=== PATIENT | female | born 1970 | race Caucasian/White ===

== ENCOUNTER → 2020-04-25 11:20 | Outpatient (CLI) | payer OTHER, SELFPAY | PROVIDERS: PCP Family Medicine; Referring Provider Family Medicine; Visit Provider Family Medicine | DX: Z20.828 Contact with and (suspected) exposure to other viral communicable diseases (principal) | CPT/HCPCS: 87635; G2023; U0003 ==

== ENCOUNTER → 2024-07-27 | Outpatient (CLI) | payer OTHER, SELFPAY ==
--- NOTE | 2024-07-27 08:19 | EKG12_ITS ---
Test Reason : PREOP Blood Pressure : / mmHG Vent. Rate : 070 BPM Atrial Rate : 070 BPM P-R Int : 138 ms QRS Dur : 094 ms QT Int : 380 ms P-R-T Axes : 071 -11 014 degrees QTc Int : 410 ms Normal sinus rhythm Incomplete right bundle branch block Borderline ECG Confirmed by Dexter Landaverde ([id number]), story editor NOAM MALCOLM ([id number]) on 07/27/2024 11:23:17 AM Referred By: Marcelo Harrison Confirmed By:Dexter Landaverde
[2024-07-27 09:24] LABS: Absolute Lymphocyte Count 1.61 X10^3/uL (0.83-4.51); Absolute Neutrophil Count 3.1 X10^3/uL (2.0-7.7); Basophil# 0.06 X10^3/uL; Basophil% 1.1 % (0-1); Eosinophil# 0.12 X10^3/uL; Eosinophils% 2.2 % (0-5); Hematocrit 41.9 % (37-47); Hemoglobin 13.6 g/dL (12.0-15.0); Lymphocyte # 1.61 X10^3/ul (0.83-4.51); Lymphocyte % 30.1 % (19-41); Mean Corp Hgb Conc 32.5 g/dL (32-36); Mean Corpuscular Hgb 29.5 pg (27.0-32.0); Mean Corpuscular Volume 90.9 fL (81-99); Mean Platelet Vol. 11.2 fl (6.2-12.0); Monocyte# 0.43 X10^3/uL; Monocyte% 8.1 % (0-10); NRBC Flagged by Analyzer 0 % (0-5); Neutrophil % 58.1 % (47-70); Platelet Count 232 K/mm3 (150-450); RBC Distribution Width CV 12.9 % (11.6-14.6); RBC Distribution Width SD 42.5 fl (35.1-43.9); Red Blood Count 4.61 M/mm3 (4.2-5.4); White Blood Count 5.3 K/mm3 (4.4-11.0)
[2024-07-27 09:56] LABS: Anion Gap 3 (5-15); BUN 7 mg/dL (7-18); BUN/Creat Ratio 8.5 RATIO (10-20); Calcium,Total 9.2 mg/dL (8.5-10.1); Chloride 112 mmol/L (98-107); Creatinine, Serum 0.82 mg/dL (0.55-1.02); EST Glomerular Filtration Rate 78 mL/min (>60); Est Glom Filt Rate - Afr Amer 94 mL/min (>60); Glucose 83 mg/dL (74-106); Potassium 4.3 mmol/L (3.5-5.1); Sodium Level 143 mmol/L (136-145)
== END | disposition home or self-care (01) ==
LOC: PSN 08:19
PROVIDERS: PCP Student in an Organized Health Care Education/Training Program; Referring Provider Student in an Organized Health Care Education/Training Program; Visit Provider Student in an Organized Health Care Education/Training Program
DX: Z01.818 Encounter for other preprocedural examination (principal)
CPT/HCPCS: 36415; 80048; 85025; 93005

== ENCOUNTER 2024-10-20 13:04 | Emergency (ER) | payer OTHER, SELFPAY ==
[2024-10-20 13:04] VITALS: BP 134/92; PULSE 89; RESP 16; TEMP 36.2; O2SAT 96; BMI 26.8
--- NOTE | 2024-10-20 13:13 | ED.VIS.CHEST ---
HPI History of Present Illness Chief Complaint: Chest Pain PFSH PFS Medical History no medical history Allergy/AdvReac Type Severity Reaction Status Date / Time bupropion (From Wellbutrin Allergy Intermediate Swelling Verified 10/20/24 13:07 SR) Family History no significant family his Surgical History no surgical history Social History Smoking Status: Never smoker EXAM Physical Exam Const Vital Signs: 10/20/24 13:04 10/20/24 13:19 10/20/24 14:04 Temperature 97.1 F L Temperature Source Oral Pulse Rate 89 82 Respiratory Rate 16 16 Blood Pressure 134/92 H 130/88 H Blood Pressure Mean 106 102 Pulse Ox 96 100 93 Oxygen Delivery Method Room Air Room Air Room Air 10/20/24 15:00 10/20/24 16:00 Temperature Temperature Source Pulse Rate 89 87 Respiratory Rate 16 Blood Pressure 128/99 H 125/89 H Blood Pressure Mean 108 101 Pulse Ox 98 98 Oxygen Delivery Method MDM MDM MDM Narrative Medical decision making narrative: HISTORY OF PRESENT ILLNESS: 54-year-old female presents with chest pain rating to her jaw. She states this began this morning and is since resolved. She attributes this to indigestion. Chest pain-free at this time. No cough fever chills. No shortness of breath. No lower extremity edema. No focal numbness weakness or loss sensation. Patient denies sudden onset of pain, no tearing sensation, no migratory symptoms, no new numbness, weakness or loss of sensation. Patient denies family history or personal history of Connective tissue disorders (Marfan's Syndrome, Gin Danlos etc) The patient denies recent surgery in the last 4 weeks or immobilization in the last 3 days, denies previous diagnosis of DVT or PE, hemoptysis, unilateral leg swelling or malignancy with treatment the last 6 months or palliative. No estrogen use noted. REVIEW OF SYSTEMS: Pertinent positives: Chest pain Pertinent negatives: SOB PHYSICAL EXAM: Nursing triage notes reviewed, Vital signs reviewed Constitutional: please see mdm HENT: MMM Eyes: Pupils equal round and reactive to light, Extraocular muscles intact Neck: No stridor, no JVD, full neck ROM Lungs: Clear to auscultation, No wheezing or rales. No increased work of breathing, no conversational dyspnea, no accessory muscle use, no nasal flaring. No respiratory distress noted Heart: Regular rate and rhythm, No murmurs, No rubs and No gallops, 2+ distal pulses (radial, femoral, posterior tibial) in all extremities Abdomen: Soft, there is no tenderness, rigidity, rebound or guarding, no obvious peritoneal signs, no palpable pulsatile abdominal masses, no auscultated abdominal bruit : No CVAT Extremities: No edema Neuro: No new focal neurological deficits, cranial nerves II through XII intact, 5/5 strength in all present extremities. Intact sensation to light touch in all present extremities, 2+ reflexes bilateral patella tendons. Skin: No rash or lesions noted MEDICAL DECISION MAKING: Chief Complaint: Chest pain External records reviewed: Reviewed prior cardiovascular testing Factors affecting care: none reported Social determinants of health: denies illicit drug use History obtained from others: none Consults: none MDM Narrative: Patient was initially hemodynamically stable, afebrile and nontoxic-appearing. Exam without focal cardiopulmonary normalities I considered the following differential diagnosis: ACS, arrhythmia, anemia, electrolyte disturbance, pneumothorax, pneumonia, PE, aortic dissection ALL IMAGES (IF OBTAINED) HAVE BEEN PERSONALLY REVIEWED AND INTERPRETED BY MYSELF. EKG with normal sinus rhythm, left axis deviation, normal intervals, QTc 429, no signs of arrhythmia, STEMI High-sensitivity troponin is negative, no evidence of myocardial ischemiax2 CBC without leukocytosis, severe anemia, no thrombocytopenia. BMP without evidence of significant electrolyte abnormalities, no anion gap, no acute kidney injury. On reevaluation the patient remained chest pain-free. The synthesis of the patient's history, physical exam, labs images suggest no acute life-limiting etiology specifically no signs of ACS. The patient's history and physical exam not consistent with dissection or PE. Her labs do not suggest anemia or electrolyte abnormalities. The cause of her presentation is unclear however it is unlikely be life-threatening. Will recommend outpatient stress test. Strict return precautions were discussed. The patient and/or family, caregivers express understanding. The patient and/or family, caregivers agrees with the plan. Shared decision making: I will have a discussion with the patient and or visitors regarding risk/benefits of further testing or admission. They will be made aware of of the risk/benefits inherent in this decision they will be given the opportunity to voice understanding. Total critical care time today provided was at least 0 minutes. This excludes separately billable procedures. Critical care time (if documented) is secondary to the patient having high probability of clinically significant/life threatening deterioration in the patient's condition which required my urgent intervention. Impression: 1. Chest pain Dispo: dc home This note was generated with [employer] dictation software. It may contain incorrect words, spelling, and punctuation that were not noted in review of the chart prior to signing. Lab Data Labs: Laboratory Results - last 24 hr 10/20/24 10/20/24 13:16 15:28 WBC 7.0 RBC 4.64 Hgb 14.0 Hct 41.5 MCV 89.4 MCH 30.2 MCHC 33.7 RDW Std Deviation 41.7 RDW Coeff of Aruna 12.9 Plt Count 257 MPV 10.5 Immature Gran % (Auto) 0.300 Neut % (Auto) 50.9 Lymph % (Auto) 37.2 Mayes % (Auto) 7.7 Eos % (Auto) 3.2 Baso % (Auto) 0.7 Absolute Neuts (auto) 3.6 Absolute Lymphs (auto) 2.59 Nucleated RBC % 0 Sodium 142 Potassium 3.7 Chloride 106 Carbon Dioxide 32.0 Anion Gap 3 L BUN 11 Creatinine 0.81 Estim Creat Clear Calc 83.33 Est GFR (MDRD) Af Amer 95 Est GFR (MDRD) Non-Af 78 BUN/Creatinine Ratio 13.6 Glucose 105 Calcium 9.2 Troponin I High Sens 5 8 Radiography Diagnostic Testing: Clinical Impression(s) from Imaging Studies Chest X-Ray 10/20/24 13:15 IMPRESSION: No radiographic evidence of acute cardiopulmonary disease. Electronically Signed: Kyle Romano MD at 14:00 EST , Discharge Plan Triage Chief Complaint: Chest Pain ED Provider: Roberto Sinha Dx/Rx/DC Orders Instructions: Chest Pain [facility] Primary Care Provider: Td Vick Referrals: Td Vick DO [Primary Care Provider] - Activity Restrictions/Additional Instructions: Thank you for trusting us with your care today! Please take Tylenol (2 pills, 650 mg), ibuprofen (2 pills, 400 mg) every 6 hours as needed for pain and fever control. Please return to the emergency department if your symptoms change or worsen. Please follow with your primary care physician for further outpatient evaluation and management. Print Language: Tongan Disposition Disposition: Home, Self Care
--- NOTE | 2024-10-20 13:14 | EKG12_ITS ---
Test Reason : CP Blood Pressure : */* mmHG Vent. Rate : 82 BPM Atrial Rate : 82 BPM P-R Int : 158 ms QRS Dur : 94 ms QT Int : 368 ms P-R-T Axes : 73 -12 36 degrees QTcB Int : 429 ms Normal sinus rhythm Incomplete right bundle branch block Borderline ECG Confirmed by ASHLEY PETER, KAL ([id number]), market editor GALEN ROSE ([id number]) on 10/22/2024 1:57:56 PM Referred By: Roberto Sinha Confirmed By: KAL RAMIREZ MD
--- NOTE | 2024-10-20 13:15 | RAD_ITS ---
INDICATION: chest pain EXAMINATION/TECHNIQUE: X-RAY - XR Chest 1 View COMPARISON: No relevant prior comparison study available FINDINGS: LINES/DEVICES: None. LUNGS: No consolidation, edema or effusion. No pneumothorax. MEDIASTINUM AND CARDIOVASCULAR STRUCTURES: Cardiac silhouette not enlarged. Central airways and mediastinal contour are unremarkable. BONES AND SOFT TISSUES: Unremarkable. RAD/Chest 1 View (Portable) IMPRESSION: No radiographic evidence of acute cardiopulmonary disease. Electronically Signed: Kyle Romano MD at 14:00 EST ,
[2024-10-20 13:19] VITALS: O2SAT 100
[2024-10-20 13:26] LABS: Absolute Lymphocyte Count 2.59 X10^3/uL (0.83-4.51); Absolute Neutrophil Count 3.6 X10^3/uL (2.0-7.7); Basophil# 0.05 X10^3/uL; Basophil% 0.7 % (0-1); Eosinophil# 0.22 X10^3/uL; Eosinophils% 3.2 % (0-5); Hematocrit 41.5 % (37-47); Lymphocyte # 2.59 X10^3/ul (0.83-4.51); Lymphocyte % 37.2 % (19-41); Mean Corp Hgb Conc 33.7 g/dL (32-36); Mean Corpuscular Hgb 30.2 pg (27.0-32.0); Mean Corpuscular Volume 89.4 fL (81-99); Mean Platelet Vol. 10.5 fl (6.2-12.0); Monocyte# 0.54 X10^3/uL; Monocyte% 7.7 % (0-10); NRBC Flagged by Analyzer 0 % (0-5); Neutrophil # 3.55 X10^3/uL (2.7-7.7); Neutrophil % 50.9 % (47-70); Platelet Count 257 K/mm3 (150-450); RBC Distribution Width CV 12.9 % (11.6-14.6); RBC Distribution Width SD 41.7 fl (35.1-43.9); Red Blood Count 4.64 M/mm3 (4.2-5.4)
[2024-10-20 13:40] LABS: Anion Gap 3 (5-15); BUN 11 mg/dL (7-18); BUN/Creat Ratio 13.6 RATIO (10-20); Calcium,Total 9.2 mg/dL (8.5-10.1); Chloride 106 mmol/L (98-107); Creatinine, Serum 0.81 mg/dL (0.55-1.02); EST Glomerular Filtration Rate 78 mL/min (>60); Est Glom Filt Rate - Afr Amer 95 mL/min (>60); Estimated Creatinine Clearance 83.33 ml/min; Glucose 105 mg/dL (74-106); Potassium 3.7 mmol/L (3.5-5.1); Sodium Level 142 mmol/L (136-145); Troponin-I HS (w/2H Reflex) 5 pg/mL (3.0-54.0)
[2024-10-20 14:04] VITALS: BP 130/88; PULSE 82; RESP 16; O2SAT 93
[2024-10-20 15:00] VITALS: BP 128/99; PULSE 89; RESP 16; O2SAT 98
[2024-10-20 15:20] LABS: Reflex Troponin-HS? (from REC) Y
[2024-10-20 16:00] VITALS: BP 125/89; PULSE 87; O2SAT 98
[2024-10-20 16:03] LABS: Troponin-I HS 8 pg/mL (3.0-54.0)
[2024-10-20 16:25] VITALS: BP 125/89; PULSE 87; RESP 16; TEMP 36.6; O2SAT 98
== END 2024-10-20 16:49 | disposition home or self-care (01) ==
PROVIDERS: Emergency Provider Emergency Medicine; PCP Student in an Organized Health Care Education/Training Program; Referring Provider Emergency Medicine; Visit Provider Emergency Medicine
DX: R07.9 Chest pain, unspecified (principal)
CPT/HCPCS: 71045; 80048; 84484; 85025; 93005; 99284; A4216

== ENCOUNTER → 2025-06-19 | Outpatient (CLI) | payer OTHER, SELFPAY ==
--- OUTSIDE RECORDS SUMMARY | 2025-06-19 07:06 | XMS RPT_ITS | CCD ---
Author Organization [facility] Care Team Providers Care Steel Detailer Name Role Phone Td Vick DO L Primary Care Provider Td Vick DO Primary Care Provider Leblanc STUNNER ANIMAL.VIDEO GAME ENGINEER, Ny Bahena Unavailable Keri STUNNER ANIMAL.VIDEO GAME ENGINEERMilton Unavailable Melva STUNNER ANIMAL.VIDEO GAME ENGINEER, Ryanne Silva Unavailable Vick, Td Primary Care Unavailable Janiettle, Marcelo Referring Unavailable Mel Harrisons Attending Unavailable Vick, Td Primary Care Unavailable Roberto Sinha Referring Unavailable BharathRoberto Attending Unavailable Vick, Td Attending Unavailable Vick, Td Primary Care Unavailable Vick, Td Referring Unavailable Vick, Td Primary Care Unavailable Dexter Landaverde Attending Unavailable AliseleMarcelo Referring Unavailable VICK, TD L Referring Unavailable VICK, TD L Primary Care Unavailable VICK, TD L Referring Unavailable VICK, TD L Primary Care Unavailable SELENE LINDSEY Attending Unavailable VICK, TD L Primary Care Unavailable VICK, TD L Referring Unavailable VICK, TD L Primary Care Unavailable VICK, TD L Referring Unavailable VICK, TD L Primary Care Unavailable SAILAJA REAL Attending Unavailable VICK, TD L Referring Unavailable VICK, TD L Primary Care Unavailable ROLAND KIM Attending Unavailable VICK, TD L Primary Care Unavailable KALKA, SELENE Referring Unavailable VICK, TD L Primary Care Unavailable VICK, TD L Attending Unavailable VICK, TD L Primary Care Unavailable Allergies Allergy Classification Reported Allergen(s) Allergy Type Date of Onset Reaction(s) Facility Aminoketones (1 source) buPROPion Drug Allergy 04-21-2010 [facility] Work Phone: (20 sources) buPROPion; Translations: [BUPROPION HCL] Drug Allergy 04-21-2010 [facility] Work Phone: (1 source) buPROPion Drug Allergy 10-20-2024 [facility] Repository Medications Current Medications Medication Drug Class(es) Dates Sig (Normalized) Sig (Original) amoxicillin 875 mg oral tablet (1 source) Penicillin-class Antibacterial Start: 11-29-2022 End: 12-06-2022 take 1 tablet by mouth twice daily amoxicillin (AMOXIL) 875 mg tablet Take 1 tablet by mouth twice daily for 7 days. 14 tablet 0 11/29/2022 12/06/2022 Active Comment on above: Take 1 tablet by scott th twice daily for 7 days. amoxicillin 875 mg / clavulanate 125 mg oral tablet (1 source) Penicillin-class Antibacterial Start: 03-28-2022 End: 04-04-2022 take 1 tablet by mouth twice daily amoxicillin-clavul anic acid (AUGMENTIN) 875-125 mg per tablet Indications: Acute sinusitis, recurrence not specified, unspecified location Take 1 tablet by mouth twice daily for 7 days. 14 tablet 0 03/28/2022 04/04/2022 Active Comment on above: Take 1 tablet by scott th twice daily for 7 days. fexofenadine (5 sources) Histamine-1 Receptor Antagonist End: 06-07-2022 fexofenadine HCl (MUCINEX ALLERGY ORAL) Take by mouth. 0 06/07/2022 Discontinued fexofenadine HCl (MUCINEX ALLERGY ORAL) Take by mouth. 0 Active Comment on above: Take by mouth. metoprolol tartrate 50 mg oral tablet (1 source) beta-Adrenergic Marjan Start: 06-18-2025 take 1 tablet by mouth once metoprolol tartrate, short acting, (LOPRESSOR) 50 mg tablet Indications: Palpitations , Aortic dilatation , RBBB , Encounter for screening for cardiovascular disorders Take 1 tablet by mouth one time only for 1 dose. 1 tablet 06/18/2025 Active Completed/Discontinued Medications Medication Drug Class(es) Dates Sig (Normalized) Sig (Original) [id number] actuat albuterol 0.09 mg/actuat metered dose inhaler (8 sources) beta2-Adrenergic Agonist Start: 06-10-2022 End: 12-22-2022 take 2 puff(s) by inhalation every six hours as needed for wheezing albuterol HFA (PROVENTIL HFA, VENTOLIN HFA) 90 mcg/actuation inhaler Indications: Chest tightness , Persistent cough , Post-COVID chronic cough Inhale 2 Puffs as instructed every 6 hours as needed for wheezing/shortnes s of breath. 18 g 2 06/10/2022 12/22/2022 Discontinued (Course of therapy completed) Comment on above: Inhale 2 Puffs as in structed every 6 hours as needed for wheezing/shortness of breath. amphetamine aspartate 1.25 mg / amphetamine sulfate 1.25 mg / dextroamphetamine saccharate 1.25 mg / dextroamphetamine sulfate 1.25 mg oral tablet (13 sources) Central Nervous System Stimulant Start: 04-04-2024 End: 05-29-2025 take 1 tablet by mouth twice daily dextroamphetamine -amphetamine (ADDERALL) 5 mg tablet Indications: Attention deficit disorder (ADD) in adult Take 1 tablet by mouth two times a day for 30 days. 60 tablet 04/30/2024 05/29/2025 Discontinued Start: 07-01-2022 End: 12-22-2022 dextroamphetamine-amphetamin e (ADDERALL) 5 mg tablet Indications: Attention deficit disorder (ADD) without hyperactivity Take 1 tablet in the afternoon as needed for continued productivity. 30 tablet 0 07/01/2022 12/22/2022 Discontinued Comment on above: Take 1 tablet in the afternoon as needed for continued productivity. busPIRone hydrochloride 5 mg oral tablet (9 sources) Start: 2023 End: 2024 take 1 tablet by mouth every twelve hours as needed for anxiety and anxiety busPIRone (BUSPAR) 5 mg tablet Indications: Situational anxiety Take 1 tablet by mouth two times a day as needed (anxiety symptoms). 30 tablet 2 04/30/2024 05/29/2025 Discontinued 60 actuat fluticasone propionate 0.05 mg/actuat dry powder inhaler (8 sources) Corticosteroid Start: 2021 End: 2022 take 1 puff(s) by inhalation twice daily Fluticasone Propionate 50 mcg/actuation diskus inhaler Indications: Chest tightness , Persistent cough , Post-COVID chronic cough Inhale 1 Puff as instructed twice daily. 60 Each 1 06/10/2022 12/22/2022 Discontinued (Course of therapy completed) Comment on above: Inhale 1 Puff as ins tructed twice daily. hydrOXYzine hydrochloride 25 mg oral tablet (13 sources) Antihistamine Start: 2021 End: 2022 take 1 tablet by mouth three times daily as needed for anxiety hydrOXYzine HCl (ATARAX) 25 mg tablet Indications: Perimenopausal , GIBSON (generalized anxiety disorder) , Situational insomnia Take 1 tablet by mouth three times daily as needed for anxiety. 30 tablet 2 04/21/2022 12/22/2022 Discontinued (Course of therapy completed) Comment on above: Take 1 tablet by [facility] three times daily as needed for anxiety. lisdexamfetamine dimesylate 20 mg oral capsule (19 sources) Central Nervous System Stimulant Start: 2021 End: 2022 take 1 capsule by mouth once daily lisdexamfetamine (VYVANSE) 20 mg capsule Indications: Fatigue, unspecified type , Attention deficit disorder (ADD) without hyperactivity Take 1 capsule by mouth once daily for 30 days. 30 capsule 05/24/2022 06/30/2022 Discontinued Start: 10-27-2021 End: 04-21-2022 take 1 capsule by mouth once daily lisdexamfetamine (VYVANSE) 30 mg capsule Indications: Attention deficit disorder (ADD) without hyperactivity Take 1 capsule by mouth once daily for 30 days. Do not start before November 25, 2021. 30 capsule 0 11/25/2021 04/21/2022 Discontinued Comment on above: Take [address] [facility] once daily for 30 days. Do not start before December 21, 2021. Take [address] [facility] once daily for 30 days. Do not start before November 25, 2021. Take [address] [facility] once daily for 30 days. Do not start before October 27, 2021. Take [address] [facility] once daily for 30 days. MULTIVITAMIN ORAL (20 sources) End: 05-29-2025 MULTIVITAMIN ORAL Take by mouth. 05/29/2025 Discontinued MULTIVITAMIN ORA L Take by mouth. Active MULTIVITAMIN ORA L Take by mouth. 0 Active Comment on above: Take by mouth. Problems Active Problems Problem Classification Problem Date Documented Da te Episodic/Chronic Anxiety disorders (20 sources) Anxiety; Translations: [Anxiety disorder, unspecified] Onset: 12-10-2009 12-10-2009 Chronic Aortic; peripheral; and visceral artery aneurysms (7 sources) Dilatation of aorta; Translations: [Aortic ectasia, unspecified site] Onset: 05-10-2025 05-31-2025 Chronic Cardiac dysrhythmias (5 sources) Palpitations; Translations: [Palpitations] Onset: 05-30-2025 05-29-2025 Episodic Conduction disorders (5 sources) Right bundle branch block; Translations: [Unspecified right bundle-branch block] Onset: 05-30-2025 05-29-2025 Chronic Disorders of lipid metabolism (2 sources) Dyslipidemia; Translations: [Hyperlipidemia, unspecified] Onset: 05-29-2025 05-29-2025 Chronic Disorders usually diagnosed in infancy, childhood, or adolescence (20 sources) Attention deficit hyperactivity disorder, predominantly inattentive type; Translations: [Other specified behavioral and emotional disorders with onset usually occurring in childhood and adolescence] 04-21-2020 Chronic Hemorrhoids (2 sources) Internal hemorrhoids; Translations: [Other hemorrhoids] Onset: 06-07-2025 06-07-2025 Episodic Malaise and fatigue (4 sources) Fatigue; Translations: [Other fatigue] Episodic Menopausal disorders (1 source) Perimenopausal state; Translations: [Menopausal and female climacteric states] Chronic Miscellaneous mental health disorders (1 source) Insomnia; Translations: [Other insomnia not due to a substance or known physiological condition] Chronic Nutritional deficiencies (1 source) Vitamin D deficiency; Translations: [Vitamin D deficiency, unspecified] 04-30-2024 Chronic Other female genital disorders (1 source) Polyp of cervix; Translations: [Polyp of cervix uteri] Episodic Other gastrointestinal disorders (2 sources) Constipation; Translations: [Other constipation] 08-18-2023 Episodic Other gastrointestinal disorders (2 sources) History of proctitis; Translations: [Personal history of other diseases of the digestive system] 08-18-2023 Episodic Other liver diseases (20 sources) Steatosis of liver; Translations: [Fatty (change of) liver, not elsewhere classified] Onset: 05-10-2023 06-08-2023 Chronic Other liver diseases (1 source) Fatty (change of) liver, not elsewhere classified; Translations: [Fatty liver] Onset: 06-08-2023 Chronic Other liver diseases (1 source) ALT (SGPT) level raised; Translations: [Elevated ALT measurement] 05-04-2023 Episodic Other lower respiratory disease (3 sources) Persistent cough; Translations: [Persistent cough] Episodic Other lower respiratory disease (3 sources) Cough; Translations: [Post-COVID chronic cough] Episodic Other lower respiratory disease (5 sources) Chronic cough; Translations: [Chronic cough] Onset: 06-07-2025 05-29-2025 Episodic Other screening for suspected conditions (not mental disorders or infectious disease) (1 source) Finding of thyroid gland; Translations: [Abnormal findings on diagnostic imaging of other specified body structures] 04-15-2025 Chronic Other screening for suspected conditions (not mental disorders or infectious disease) (16 sources) Patient encounter status; Translations: [Encounter for screening for osteoporosis] Onset: 05-29-2025 Episodic Other skin disorders (1 source) Butterfly rash; Translations: [Rash and other nonspecific skin eruption] 05-29-2025 Episodic Other skin disorders (1 source) Rash and other nonspecific skin eruption; Translations: [Butterfly rash] Onset: 05-29-2025 Episodic Other upper respiratory infections (2 sources) Acute sinusitis; Translations: [Acute sinusitis, unspecified] Episodic Otitis media and related conditions (1 source) Acute right otitis media; Translations: [Otitis media, unspecified, right ear] Episodic Residual codes; unclassified (1 source) Postmenopausal state; Translations: [Asymptomatic menopausal state] Episodic Residual codes; unclassified (3 sources) FH: Aortic aneurysm; Translations: [Family history of ischemic heart disease and other diseases of the circulatory system] 05-29-2025 Episodic Residual codes; unclassified (1 source) Family history of ischemic heart disease and other diseases of the circulatory system; Translations: [Family history of aortic aneurysm] Onset: 05-30-2025 Episodic Thyroid disorders (9 sources) Goiter; Translations: [Iodine-deficiency related diffuse (endemic) goiter] Onset: 04-01-2025 Chronic Unclassified (2 sources) Patient encounter status 12-25-2024 Past or Other Problems Problem Classification Problem Date Documented Da te Episodic/Chronic Gastrointestinal hemorrhage (20 sources) Gastrointestinal hemorrhage; Translations: [Hemorrhage of anus and rectum] Onset: 6 04-29-2016 Episodic Inflammatory diseases of female pelvic organs (20 sources) Vaginitis; Translations: [Acute vaginitis] Onset: 2 07-24-2012 Episodic Nonspecific chest pain (4 sources) Tight chest; Translations: [Other chest pain] Onset: 5 Episodic Other inflammatory condition of skin (20 sources) Pruritus of skin; Translations: [Pruritus, unspecified] Onset: 2 07-24-2012 Episodic Other skin disorders (20 sources) Acne; Translations: [Acne, unspecified] Onset: 4 12-24-2013 Episodic Results Test Name Value Interpretation Reference Range Facility [facility] SCREENING W TOMOon 06-12 [facility] SCREEN[facility] GI[facility] * * *Final Report* * * DATE OF EXAM: Jun 12 2025 11:31AM [facility] 0582 - [facility]DE[facility] SCREENING W GIOVANY / PROCEDURE REASON: Encounter for screening mammogram for breast cancer * * * * Physician Interpretation * * * * RESULT: [place] [address] #[id number] - [facility]DE[facility] SCREENING W GI[facility] HISTORY: 55 year-old patient presents for screening. Patient is asymptomatic in both breasts. Patient states no personal history of breast cancer. COMPARISON STUDIES: The present examination has been compared to prior imaging studies dated 11/15/2018 (mammogram), 10/26/2019 (mammogram), 11/06/2020 (mammogram), 11/09/2021 (mammogram) and 12/22/2022 (mammogram). MAMMOGRAM TECHNIQUE: The study was acquired using full field digital technology and interpreted from soft copy. Digital Breast Tomosynthesis (DBT) images were obtained and used to assist in the interpretation of this examination. MAMMOGRAM FINDINGS: There are scattered areas of fibroglandular density. No suspicious masses, calcifications or other abnormalities are seen in either breast. There are no significant interval changes. IMPRESSION: There is no mammographic evidence of malignancy in either breast. Routine screening mammogram is recommended. Annual mammogram will be due in 1 year. BI-RADS Category 1: Negative RISK: Based on the Tyrer-Cuzick (TC) risk assessment model, this patient has a 5.9% lifetime risk of developing breast cancer, meaning they are at average risk for developing breast cancer. However, this is only an estimate based on available history provided on the patient's questionnaire. We encourage all patients to talk with their providers about these results, further recommendations for managing breast health, and appropriate supplemental screening options if the patient has dense breast tissue. Interpreting Radiologist: Karlos Langford M.D. Electronically signed on: 06/14/2025 [employer] Operator: LORETTA Transcribe Date/Time: Jun 12 2025 11:16A Dictated by: KARLOS LANGFORD MD This examination was interpreted and the report reviewed and electronically signed by: KARLOS LANGFORD MD on Jun 14 2025 11:23AM EST [id number] Normal [facility] Calprotectin (Stl) [Mass/Mas s]on 06-10-2025 CALPROTECTIN, FECAL INTERP Elevated Abnormal Normal [facility] Comment on above: Order Comment: Speci men Type: STOOL SPECIMENOrdering Facility: [facility] Address: [address] [place] [address] Result Comment: Inte rpretation: <50.0 ug/g: Normal 50.0 ug/g - 120.0 ug/g: Borderline elevated. Re-evaluation in 4-6 weeks is recommended if clinically indicated. >120.0 ug/g: Elevated Performed By: #### 3 8445-3, PANCEF ####[facility] LABCLIA [id number] [place] [address] [place] CALPROTECTIN, FECAL QUANTITATIVE 1220 ug/g High <50 [facility] Comment on above: Order Comment: Speci men Type: STOOL SPECIMENOrdering Facility: [facility] Address: [address] [place] [address] Performed By: #### 3 8445-3, PANCEF ####[facility] LABCLIA [id number] [place] [address] [place] FAT, FECAL QUALon 06-10-2025 FAT, FECAL - NEUTRAL Normal Normal Normal [facility] Comment on above: Order Comment: Speci men Type: STOOL SPECIMENOrdering Facility: [facility] Address: [address] [place] [address] Performed By: #### F FATQL ####[facility] LABORATORIESCLIA [id number] [place] [address] FAT, FECAL - SPLIT Normal Normal Normal [facility] Comment on above: Order Comment: Speci men Type: STOOL SPECIMENOrdering Facility: [facility] Address: [address] [place] [address] Result Comment: INTE RPRETIVE INFORMATION: Fecal Fat Qualitative Neutral fats include the monoglycerides, diglycerides, and triglycerides while split fats are the free fatty acids that are liberated from them. Impaired synthesis or secretion of pancreatic enzymes or bile may cause an increase in neutral fats while an increase in split fats suggests impaired absorption of nutrients. Performed By: [facility] [address] [place] [address] Government Auditor: Luis Daniel Ragland MD, PhD CLIA Number: [id number] Performed By: #### F FATQL ####[facility]IES[facility] [id number] [place] [address] PANC ELASTASE, FECALon 06-10 ELASTASE INTERPRETATION Normal Normal Normal [facility] Comment on above: Order Comment: Speci men Type: STOOL SPECIMENOrdering Facility: [facility] Address: [address] [place] [address] Performed By: #### 3 8445-3, PANCEF ####[facility] LABCLIA [id number] [place] [address] [place] ELASTASE-1 CONCENTRATION >800 Normal >=200 [facility] Comment on above: Order Comment: Speci men Type: STOOL SPECIMENOrdering Facility: [facility] Address: [address] [place] [address] Result Comment: Inte rpretation: <100 ug/g: Severe Exocrine Pancreatic Insufficiency 100-199 ug/g: Mild to Moderate Exocrine Pancreatic Insufficiency >=200 ug/g: Normal Performed By: #### 3 8445-3, PANCEF ####[facility] LABNAYIA [id number] [place] [id number] [facility] CNPNon 05-31-2025 CNPN Telephone (FAMWS) [place] COLON ([id number]) 1970 F Date Time Provider Department 05/31/25 TD VICK [facility] During your visit today, we recorded the following information about you: Td Vick DO 05/31/2025 7:38 AM Addendum Please inform patient that her ECHO shows CONCLUSIONS: - Exam indication: Palpitations - The left ventricle is normal in size. Left ventricular systolic function is normal. EF = 68 ? 5% (2D 4-ch.) Normal left ventricular diastolic function. - The right ventricle is normal in size. Right ventricular systolic function is normal. - There are no significant valvular abnormalities. - The visualized aorta is borderline dilated with a maximal dimension of 3.8 cm. - The patient has not had a prior CC echocardiographic exam for comparison. This means that her aorta is borderline large but not significantly dilated. Recommend echo every 2 years Also her labs are all normal. No signs of lupus or other autoimmune condition. DO Sara Rodriguez Susan LPN 05/31/2025 11:43 AM Signed Pt. informed via my Chart Allergies As of Date: 05/31/2025 Noted Allergy Reaction WELLBUTRIN (BUPROPION HCL) 04/21/2010 2 - Rash Comments: See 04/21/2010 Date Reviewed: 05/29/2025 Reviewed by: Vane Biggs LPN - Fully Assessed Primary Visit Diagnosis:Aortic dilatation [I77.819] Meds Comments as of 04/20/2021: Magnesium glyconate 425mg- two before bed Problem List As Of Date 05/31/2025 Noted Resolved Routine general medical examination at [facility]*11/29/2008 07/24/2012 Anxiety [F41.9] 12/10/2009 Unspecified pruritic disorder [L29.9] 07/24/2012 Vaginitis [N76.0] 07/24/2012 Acne [L70.9] 12/24/2013 Bright red blood per rectum [K62.5] 04/29/2016 ADD (attention deficit disorder) [F98.8] Fatty liver [K76.0] 05/2023 Aortic dilatation [I77.819] 05/2025 Encounter Status:Closed by VANE BIGGS LPN on 05/31/25 Normal [facility] ECHOon 05-30-2025 Echocardiography Echocardiography Report: Transthoracic Echo [facility] Date of service: 05/30/2025 9:28:20 AM STEAMER Ordering physician: TD VICK Exam indication: Palpitations Technologist: Dahlia Ruano [facility] Interpreting physician: Karlie Henry MD PATIENT: Name: MRS. [place] COLON : 1970 Age: 55 years Gender: F Primary rhythm: sinus. Height: 166.50 cm BSA: 1.84 m Weight: 73.03 kg BMI: 26.3 kg/m Heart rate 82 bpm Blood pressure 117/78 mmHg Color Doppler was utilized to interrogate the cardiac valves assessed and spectral Doppler was utilized to determine the flow velocities and pressure gradients reported in this exam. Myocardial strain analysis was performed in this exam to aid in the assessment of cardiac function. MEASUREMENTS: Value Indexed Normal Max aortic dimension 3.8 cm Ao < 3.8 Left atrial volume 34 ml (biplane A-L) 18 ml/m Vick <= 34 LV ID (diastole) 3.8 cm (2D) 2.06 cm/m LV ID (systole) 2.7 cm (2D) 1.47 cm/m IVS, leaflet tips 1.0 cm (2D) Posterior wall thickness 1.0 cm (2D) Left ventricular mass 121 g (2D) 66 g/m Global peak long strain -18.9 % LV stroke volume 62 ml (2D 4-ch.) LV end diastolic volume 91 ml (2D 4-ch.) 49.4 ml/m 29<=EDVi<62 LV end systolic volume 29 ml (2D 4-ch.) 15.9 ml/m Ejection Fraction 68 % (2D 4-ch.) EF > 54 FINDINGS: LEFT VENTRICLE The left ventricle is normal in size. Left ventricular systolic function is normal. Global LV myocardial strain is normal. Normal left ventricular diastolic function. Mitral annular lateral E/e': 8.1. Mitral annular septal E/e': 6.2. Wall Motion: All scored segments are normal. RIGHT VENTRICLE The right ventricle is normal in size. Right ventricular systolic function is normal. RV systolic tissue Doppler velocity is 15.0 cm/s. Tricuspid annular displacement is 2.4 cm. Estimated right atrial pressure is not included as the IVC was not seen. LEFT ATRIUM The left atrial cavity is normal in size. RIGHT ATRIUM The right atrial cavity is normal in size (RA area = 10.0 cm ). MITRAL VALVE The mitral valve leaflets are structurally normal. There is no mitral valve regurgitation. The pressure half time is 42 msec. The peak mitral E/A ratio is 1.20. The average mitral E/e' ratio is 7.2. The mitral flow deceleration time is 144 msec. TRICUSPID VALVE The tricuspid valve leaflets are structurally normal. There is no tricuspid valve regurgitation. AORTIC VALVE The aortic valve cusps are structurally normal. There is no aortic valve regurgitation. Tricuspid aortic valve. The peak gradient is 6 mmHg (peak velocity = 123.5 cm/s). PULMONIC VALVE The pulmonic valve cusps are structurally normal. There is trace pulmonic valve regurgitation. AORTA The visualized aorta is borderline dilated. Measurements - Aortic valve annulus 1.9 cm. Sinus: 3.8 cm. Sinotubular junction 3.3 cm. Mid ascending aorta 3.1 cm. Distal ascending aorta 3.2 cm. INTERATRIAL SEPTUM There is no evidence of intracardiac shunting as detected by Doppler. PERICARDIUM There is no pericardial effusion. There is an epicardial fat pad. CONCLUSIONS: - Exam indication: Palpitations - The left ventricle is normal in size. Left ventricular systolic function is normal. EF = 68 5% (2D 4-ch.) Normal left ventricular diastolic function. - The right ventricle is normal in size. Right ventricular systolic function is normal. - There are no significant valvular abnormalities. - The visualized aorta is borderline dilated with a maximal dimension of 3.8 cm. - The patient has not had a prior CC echocardiographic exam for comparison. * * * Final * * * [facility] Image : [id number] ISUID Normal [facility] JARRELL BY IFA WITH REFLEXon Nuclear Ab Ql (S) Negative Normal Negative [facility] Comment on above: Order Comment: Speci men Type: BLOOD SPECIMENOrdering Facility: [facility] Address: [address] [place] [address] Result Comment: Anti -nuclear antibody test is used as an aid in diagnosis of systemic autoimmune diseases. Where positive and clinically warranted, follow-up using disease-specific testing is recommended. Low positive titers are not uncommon with advanced age, certain chronic infections, and malignancies among others. Test methodology: Indirect fluorescence immunoassay (IFA) using HEp-2 cells. Performed By: #### A NAIFR ####[facility] LABCLIA [id number] [place] [address] [place] C-REACTIVE PROTEINon 025 CRP [Mass/Vol] 0.4 mg/dL [facility] - 0.9 mg/dL [facility] CBC W Auto Differential pane l (Bld)on 05-29-2025 Basophils (Bld) [#/Vol] 0.04 10*3/uL [facility] Basophils/100 WBC (Bld) 0.7 % [facility] Differential cell count method Nom (Bld) Auto [facility] Eosinophils (Bld) [#/Vol] 0.15 10*3/uL [facility] Eosinophils/100 WBC (Bld) 2.8 % [facility] Erythrocyte distribution width (RBC) [Ratio] 13.2 % 11.5 - 15.0 % [facility] Hematocrit (Bld) [Volume fraction] 43.0 % 36.0 - 46.0 % [facility] Hemoglobin (Bld) [Mass/Vol] 14.4 g/dL 11.5 - 15.5 g/dL [facility] Immature granulocytes (Bld) [#/Vol] NINF [facility] Immature granulocytes/100 WBC (Bld) 0.2 % [facility] Lymphocytes (Bld) [#/Vol] 1.46 10*3/uL [facility] Lymphocytes/100 WBC (Bld) 26.9 % [facility] MCH (RBC) [Entitic mass] 29.8 pg 26.0 - 34.0 pg [facility] MCHC (RBC) [Mass/Vol] 33.5 g/dL 30.5 - 36.0 g/dL [facility] MCV (RBC) [Entitic vol] 88.8 fL 80.0 - 100.0 fL [facility] Monocytes (Bld) [#/Vol] 0.39 10*3/uL [facility] Monocytes/100 WBC (Bld) 7.2 % [facility] Neutrophils (Bld) [#/Vol] 3.38 10*3/uL [facility] Neutrophils/100 WBC (Bld) 62.2 % [facility] Nucleated RBC (Bld) [#/Vol] NINF [facility] Nucleated RBC/100 WBC (Bld) [Ratio] 0.0 % /100 WBC [facility] Platelet mean volume (Bld) [Entitic vol] 11.5 fL 9.0 - 12.7 fL [facility] Platelets (Bld) [#/Vol] 227 10*3/uL [facility] RBC (Bld) [#/Vol] 4.84 10*6/uL 3.90 - 5.2 0 m/uL [facility] WBC (Bld) [#/Vol] 5.43 10*3/uL [facility] Basophils (Bld) [#/Vol] 0.04 10*3/uL Normal <0.11 [facility] Comment on above: Order Comment: Speci men Type: BLOOD SPECIMENOrdering Facility: [facility] Address: [address] [place] [address] Performed By: #### 5 7021-8, 4537-7 ####[facility] LABCLIA [id number] [place] [address] [place] Basophils/100 WBC (Bld) 0.7 % Normal [facility] Comment on above: Order Comment: Speci men Type: BLOOD SPECIMENOrdering Facility: [facility] Address: [address] [place] [address] Performed By: #### 5 7021-8, 4536-7 ####[facility] LABCLIA [id number] [place] [address] [place] Differential cell count method Nom (Bld) Auto Normal [facility] Comment on above: Order Comment: Speci men Type: BLOOD SPECIMENOrdering Facility: [facility] Address: [address] [place] [address] Performed By: #### 5 7021-8, 4536-7 ####[facility] LABCLIA [id number] [place] [address] [place] Eosinophils (Bld) [#/Vol] 0.15 10*3/uL Normal <0.46 [facility] Comment on above: Order Comment: Speci men Type: BLOOD SPECIMENOrdering Facility: [facility] Address: [address] [place] [address] Performed By: #### 5 7021-8, 4536-7 ####[facility] LABCLIA [id number] [place] [address] [place] Eosinophils/100 WBC (Bld) 2.8 % Normal [facility] Comment on above: Order Comment: Speci men Type: BLOOD SPECIMENOrdering Facility: [facility] Address: [address] [place] [address] Performed By: #### 5 7021-8, 4536-7 ####[facility] LABCLIA [id number] [place] [address] [place] Erythrocyte distribution width (RBC) [Ratio] 13.2 % Normal 11.5-15.0 [facility] Comment on above: Order Comment: Speci men Type: BLOOD SPECIMENOrdering Facility: [facility] Address: [address] [place] [address] Performed By: #### 5 7021-8, 4537-7 ####[facility] LABCLIA [id number] [place] [address] [place] Hematocrit (Bld) [Volume fraction] 43.0 % Normal 36.0-46.0 [facility] Comment on above: Order Comment: Speci men Type: BLOOD SPECIMENOrdering Facility: [facility] Address: [address] [place] [address] Performed By: #### 5 7021-8, 4537-7 ####[facility] LABCLIA [id number] [place] [address] [place] Hemoglobin (Bld) [Mass/Vol] 14.4 g/dL Normal 11.5-15.5 [facility] Comment on above: Order Comment: Speci men Type: BLOOD SPECIMENOrdering Facility: [facility] Address: [address] [place] [address] Performed By: #### 5 7021-8, 4536-7 ####[facility] LABCLIA [id number] [place] [address] [place] Immature granulocytes (Bld) [#/Vol] 10*3/uL Normal <0.10 [facility] Comment on above: Order Comment: Speci men Type: BLOOD SPECIMENOrdering Facility: [facility] Address: [address] [place] [address] Performed By: #### 5 7021-8, 4537-7 ####[facility] LABCLIA [id number] [place] [address] [place] Immature granulocytes/100 WBC (Bld) 0.2 % Normal [facility] Comment on above: Order Comment: Speci men Type: BLOOD SPECIMENOrdering Facility: [facility] Address: [address] [place] [address] Performed By: #### 5 7021-8, 4536-7 ####[facility] LABCLIA [id number] [place] [address] [place] Lymphocytes (Bld) [#/Vol] 1.46 10*3/uL Normal 1.00-4.00 [facility] Comment on above: Order Comment: Speci men Type: BLOOD SPECIMENOrdering Facility: [facility] Address: [address] [place] [address] Performed By: #### 5 7021-8, 7 ####[facility] LABCLIA [id number] [place] [address] [place] Lymphocytes/100 WBC (Bld) 26.9 % Normal [facility] Comment on above: Order Comment: Speci men Type: BLOOD SPECIMENOrdering Facility: [facility] Address: [address] [place] [address] Performed By: #### 5 7021-8, 7 ####[facility] LABIA [id number] [place] [address] [place] MCH (RBC) [Entitic mass] 29.8 pg Normal 26.0-34.0 [facility] Comment on above: Order Comment: Speci men Type: BLOOD SPECIMENOrdering Facility: [facility] Address: [address] [place] [address] Performed By: #### 5 7021-8, 7 ####[facility] LABCLIA [id number] [place] [id number] [place] MCHC (RBC) [Mass/Vol] 33.5 g/dL Normal 30.5-36.0 [facility] Comment on above: Order Comment: Speci men Type: BLOOD SPECIMENOrdering Facility: [facility] Address: [address] [place] [address] Performed By: #### 5 7021-8, 7 ####[facility] LABCLIA [id number] [place] [address] [place] MCV (RBC) [Entitic vol] 88.8 fL Normal 80.0-100.0 [facility] Comment on above: Order Comment: Speci men Type: BLOOD SPECIMENOrdering Facility: [facility] Address: [address] [place] [address] Performed By: #### 5 7021-8, 7 ####[facility] LABCLIA [id number] [place] [address] [place] Monocytes (Bld) [#/Vol] 0.39 10*3/uL Normal <0.87 [facility] Comment on above: Order Comment: Speci men Type: BLOOD SPECIMENOrdering Facility: [facility] Address: [address] [place] [address] Performed By: #### 5 7021-8, 7 ####[facility] LABIA [id number] [place] [address] [place] Monocytes/100 WBC (Bld) 7.2 % Normal [facility] Comment on above: Order Comment: Speci men Type: BLOOD SPECIMENOrdering Facility: [facility] Address: [address] [place] [address] Performed By: #### 5 7021-8, 7 ####[facility] LABCLIA [id number] [place] [address] [place] Neutrophils (Bld) [#/Vol] 3.38 10*3/uL Normal 1.45-7.50 [facility] Comment on above: Order Comment: Speci men Type: BLOOD SPECIMENOrdering Facility: [facility] Address: [address] [place] [address] Performed By: #### 5 7021-8, 4536-7 ####[facility] LABCLIA [id number] [id number] [address] [place] Neutrophils/100 WBC (Bld) 62.2 % Normal [facility] Comment on above: Order Comment: Speci men Type: BLOOD SPECIMENOrdering Facility: [facility] Address: [address] [place] [address] Performed By: #### 5 7021-8, 4537-7 ####[facility] LABCLIA [id number] [facility] [place] [address] [place] Nucleated RBC (Bld) [#/Vol] 10*3/uL Normal <0.01 [facility] Comment on above: Order Comment: Speci men Type: BLOOD SPECIMENOrdering Facility: [facility] Address: [address] [place] [address] Performed By: #### 5 7021-8, 4537-7 ####[facility] LABCLIA [id number] [place] [address] [place] Nucleated RBC/100 WBC (Bld) [Ratio] 0.0 /100 WBC Normal [facility] Comment on above: Order Comment: Speci men Type: BLOOD SPECIMENOrdering Facility: [facility] Address: [address] [place] [address] Performed By: #### 5 7021-8, 4536-7 ####[facility] LABCLIA [id number] [place] [address] [place] Platelet mean volume (Bld) [Entitic vol] 11.5 fL Normal 9.0-12.7 [facility] Comment on above: Order Comment: Speci men Type: BLOOD SPECIMENOrdering Facility: [facility] Address: [address] [place] [address] Performed By: #### 5 7021-8, 4536-7 ####[facility] LABCLIA [id number] [facility] [place] [address] [place] Platelets (Bld) [#/Vol] 227 10*3/uL Normal 150-400 [facility] Comment on above: Order Comment: Speci men Type: BLOOD SPECIMENOrdering Facility: [facility] Address: [address] [place] [address] Performed By: #### 5 7021-8, 4537-7 ####[facility] LABCLIA [id number] [place] [address] [place] RBC (Bld) [#/Vol] 4.84 10*6/uL Normal 3.90-5.20 [facility] Comment on above: Order Comment: Speci men Type: BLOOD SPECIMENOrdering Facility: [facility] Address: [address] [place] [address] Performed By: #### 5 7021-8, 4537-7 ####[facility] LABCLIA [id number] [place] [address] [place] WBC (Bld) [#/Vol] 5.43 10*3/uL Normal 3.70-11.00 [facility] Comment on above: Order Comment: Speci men Type: BLOOD SPECIMENOrdering Facility: [facility] Address: [address] [place] [address] Performed By: #### 5 7021-8, 4537-7 ####[facility] LABCLIA [id number] [place] [address] [place] CNOVon 05-29-2025 [facility] [place] COLON ([id number]) 1970 F Date Time Provider Department 05/29/25 9:00 AM TD VICK FAMPWS During your visit today, we recorded the following information about you: Temperature Pulse Respiration Blood pressure 97.7 degrees 80/minute 12/minute 110/70 Weight Height 73 kg 1.665 m Td Vick DO 05/29/2025 9:36 PM Signed CC: Ny Colon is a 55 year old female who presents to the office for physical HPI: Blood in stool recently since March, no abdominal pain. Had colonoscopy 18 months ago. No vomiting. No nausea typically Redness of her face, concerned since like a butterfly rash. Diagnosed with Rosacea previously. No known hx of lupus. Is photosensitive. Dry cough x 1 year, non productive, no sputum production, no hemoptysis. Occasional dyspnea. No exertional symptoms. Hasn't had exposure to tobacco primary or secondary and no obvious inhalant exposure that she is aware of, no tobacco use, no vaping. No obvious wheezing, no hx of asthma. Does get palpitations- recently diagnosed with RBBB when having testing before surgery- this was previously unknown to her. Fatty liver disease, has had elastography testing to show no signs of fibrosis or cirrhosis- frustrated by worsening of her fatty liver despite working very hard on weight loss process. Her weight is up to 161 lbs at this time. Mother recently diagnosed with aortic aneurysm thoracic and had to have repair done at [facility] [place] PAST MEDICAL HISTORY Diagnosis Date ADD (attention deficit disorder) Fatty liver 05/2023 Personal history of malignant melanoma of skin age 36 Kristie, follows regularly, [employer] Thyroid nodule Ulcerative proctitis (HCC) PAST SURGICAL HISTORY Procedure Laterality Date DELIVERY ONLY 1998, 2000 , low cervical COLONOSCOPY 05/11/2016 proctitis, ulcerations COLONOSCOPY 09/09/2023 int hemorrhoids, neg random biopsies KNEE ARTHROSCOP MENISCUS REPAIR MED/LAT Right Root repair PAST SURGICAL HISTORY OF 09/2006 Dr. Flowers, [facility]; right ankle mole remoal-path + melanoma in situ Social History: SOCIAL HISTORY[1] FAMILY HISTORY Problem Relation Age of Onset Hypertension Mother late 30's Thyroid Mother unknown type Psychiatry Mother Heart Mother aortic aneurisym Allergies Father Hypertension Father Psychiatry Father Thyroid Sister Hypertension Brother Hypertension Brother other (thyroidectom) Brother Stroke Maternal Grandmother later in life (70's) Hypertension Maternal Grandmother Hypertension Maternal Aunt age unknown Hypertension Maternal Aunt age unknown Thyroid Maternal Aunt Diabetes Other none Coronary Artery Disease Other none Colon Cancer No Family History Liver Disease No Family History Current Outpatient prescriptions: No prescriptions on file. Allergies: ALLERGIES Allergen Reactions Wellbutrin [Bupropi* Rash See 04/21/2010 ROS: See HPI PE: 05/29/25 0909 BP: 110/70 Pulse: 80 Resp: 12 Temp: 36.5 ?C (97.7 ?F) TempSrc: Left Tympanic Weight: 73 kg (161 lb) Height: 166.5 cm (5' 5.55) Gen: AANDO, NAD, non-toxic appearing, Pleasant, cooperative HEENT: NT/AC, PERRLA, EOMs intact b/l, nares clear and patent b/l, pharynx without erythema, exudate or lesions. Uvula midline. MMMEACs without erythema or debris. TMs pearly peres with intact landmarks b/l. Neck: supple, No cervical LAD, no thyromegaly, no carotid bruits CV: RRR, normal S1 and S2, no murmurs, no gallops, no rubs, Pulses 2+ and symmetric in UE and LE b/l Lungs: normal respiratory effort, CTA b/l- slightly diminished in bases, no wheezing or rhonchi or rales Abd: soft, overweight, NT, ND, +BS, no hepatosplenomegaly MS: FROM all 4 extremities Neuro: CN II-XII intact b/l, strength 5/5 b/l UE and LE, DTRs 2/4 UE and LE, sensation intact. Skin: warm, dry, intact, No rashes or lesions on exposed skin. Erythematous butterfly rash on cheeks of face ASSESSMENT/PLAN: 1. Well adult exam - ICD9: V70.0, ICD10: Z00.00 (primary diagnosis) - Counseled on healthy diet and regular exercise - Discussed need and benefit for weight loss. BMI 26.34 kg/(m2) - JARRELL BY IFA WITH REFLEX - C-REACTIVE PROTEIN - COMPLETE BLOOD COUNT AND DIFFERENTIAL - COMPREHENSIVE METABOLIC PANEL - THYROID STIMULATING HORMONE - T4 FREE/FREE THYROXINE - T3, FREE - HEMOGLOBIN A1C - CORTISOL, SERUM - LIPID PANEL, FASTING 2. Palpitations - ICD9: 785.1, ICD10: R00.2 ECHO as ordered Further testing with stress testing Concerns due to heart disease and thoracic aneurysm in family/mother - ECHO - PERFLUTREN LIPID MICROSPHERES 1.1 MG/ML INJECTION IN NS 10 ML - SODIUM CHLORIDE 0.9 % (FLUSH) INJECTION SYRINGE - EXERCISE STRESS ECG (WITHOUT IMAGING) 3. RBBB - ICD9: 426.4, ICD10: I45.10 ECHO as ordered Further testi (more content not included)... Normal [facility] CORTISOL, SERUMon 05-29-2025 Cortisol [Mass/Vol] 12.0 ug/dL 4.8 - 19 .5 ug/dL [facility] Comment on above: Provided reference r chau is from 6-10 AM sample collection time. Cortisol Reference Range: 6-10 AM = 4.8-19.5 ug/dL, 4-8 PM = 2.5-11.9 ug/dL CRP SerPl-mCncon 05-29-2025 CRP [Mass/Vol] 0.4 mg/dL Normal <0.9 [facility] Comment on above: Order Comment: Speci men Type: BLOOD SPECIMENOrdering Facility: [facility] Address: [address] [place] [address] Performed By: #### 3 016-3, 1988-02, 2143-03 ####[facility] LABCLIA [id number] [place] [address] [place] CRP [Mass/Vol]on 05-29-2025 Interpretation and review of laboratory results Normal [facility] Comprehensive metabolic 2000 panelon 05-29-2025 Albumin [Mass/Vol] 4.6 g/dL 3.9 - 4.9 g/dL [facility] ALP [Catalytic activity/Vol] 70 U/L 34 - 123 U/L [facility] ALT [Catalytic activity/Vol] 19 U/L 7 - 38 U/L [facility] Anion gap [Moles/Vol] 13 mmol/L 8 - 15 mmol/L [facility] AST [Catalytic activity/Vol] 23 U/L 13 - 35 U/L [facility] Bilirubin [Mass/Vol] 0.4 mg/dL 0.2 - 1 .3 mg/dL [facility] Calcium [Mass/Vol] 9.7 mg/dL 8.5 - 10. 2 mg/dL [facility] Chloride [Moles/Vol] 106 mmol/L 98 - 10 7 mmol/L [facility] CO2 [Moles/Vol] 24 mmol/L 22 - 30 mmol/L [facility] Creatinine [Mass/Vol] 0.75 mg/dL 0.58 - 0.96 mg/dL [facility] GFR/1.73 sq M.predicted among non-blacks MDRD (S/P/Bld) [Vol rate/Area] 95 mL/min/{1.73_m2} - PINF [facility] Comment on above: Estimated Glomerular Filtration Rate (eGFR) is calculated using the 2020 CKD-EPI creatinine equation. This equation utilizes serum creatinine, sex, and age as parameters. The creatinine assay has traceable calibration to isotope dilution-mass spectrometry. Refer to KDIGO guidelines for clinical interpretation. In patients with unstable renal function, e.g. those with acute kidney injury, the eGFR may not accurately reflect actual GFR. Glucose [Mass/Vol] 75 mg/dL 74 - 99 mg/dL [facility] Comment on above: The [place] Diab[employer] [place] Association (ADA) provides guidance for cutoff values for fasting glucose and random glucose. The ADA defines fasting as no caloric intake for at least 8 hours. Fasting plasma glucose results between 100 to 125 mg/dL indicate increased risk for diabetes (prediabetes). Fasting plasma glucose results greater than or equal to 126 mg/dL meet the criteria for diagnosis of diabetes. In the absence of unequivocal hyperglycemia, results should be confirmed by repeat testing. In a patient with classic symptoms of hyperglycemia or hyperglycemic crisis, random plasma glucose results greater than or equal to 200 mg/dL meet the criteria for diagnosis of diabetes. Reference: Standards of Medical Care in Diabetes 2016, [place] [employer]. Diabetes Care. 2016.39(Suppl 1). Interpretation and review of laboratory results Normal [facility] Potassium [Moles/Vol] 4.7 mmol/L 3.7 - 5.1 mmol/L [facility] Protein [Mass/Vol] 7.3 g/dL 6.3 - 8.0 g/dL [facility] Sodium [Moles/Vol] 143 mmol/L 136 - 144 mmol/L [facility] Urea nitrogen [Mass/Vol] 14 mg/dL 7 - 21 mg/dL [facility] Albumin [Mass/Vol] 4.6 g/dL Normal 3.9-4.9 [facility] Comment on above: Order Comment: Speci men Type: BLOOD SPECIMENOrdering Facility: [facility] Address: [address] [place] [address] Performed By: #### 2 4323-8, 44408-8, 3024-7, 3051-0 ####[facility] LABIA [id number] [place] [address] [place] ALP [Catalytic activity/Vol] 70 U/L Normal 34-123 [facility] Comment on above: Order Comment: Speci men Type: BLOOD SPECIMENOrdering Facility: [facility] Address: [address] [place] [address] Performed By: #### 2 4323-8, 12026-0, 3024-7, 3051-0 ####[facility] LABIA [id number] [place] [address] [place] ALT [Catalytic activity/Vol] 19 U/L Normal 7-38 [facility] Comment on above: Order Comment: Speci men Type: BLOOD SPECIMENOrdering Facility: [facility] Address: [address] [place] [address] Performed By: #### 2 4323-8, 64017-7, 3024-7, 3051-0 ####[facility] LABIA [id number] [place] [address] [place] Anion gap [Moles/Vol] 13 mmol/L Normal 8-15 [facility] Comment on above: Order Comment: Speci men Type: BLOOD SPECIMENOrdering Facility: [facility] Address: [address] [place] [address] Performed By: #### 2 4323-8, 88839-7, 3024-7, 3051-0 ####[facility] LABIA [id number] [place] [address] [place] AST [Catalytic activity/Vol] 23 U/L Normal 13-35 [facility] Comment on above: Order Comment: Speci men Type: BLOOD SPECIMENOrdering Facility: [facility] Address: [address] [place] [address] Performed By: #### 2 4323-8, 79805-4, 3024-7, 3051-0 ####[facility] LABCLIA [id number] [address] [address] [place] Bilirubin [Mass/Vol] 0.4 mg/dL Normal 0.2-1.3 [facility] Comment on above: Order Comment: Speci men Type: BLOOD SPECIMENOrdering Facility: [facility] Address: [address] [place] [address] Performed By: #### 2 4323-8, 27070-8, 3024-7, 3051-0 ####[facility] LABIA [id number] [place] [id number] [place] Calcium [Mass/Vol] 9.7 mg/dL Normal 8.5-10.2 [facility] Comment on above: Order Comment: Speci men Type: BLOOD SPECIMENOrdering Facility: [facility] Address: [address] [place] [address] Performed By: #### 2 4323-8, 59348-1, 3024-7, 3051-0 ####[facility] LABIA [id number] [place] [id number] [place] Chloride [Moles/Vol] 106 mmol/L Normal 98-107 [facility] Comment on above: Order Comment: Speci men Type: BLOOD SPECIMENOrdering Facility: [facility] Address: [address] [place], [place] [address] Performed By: #### 2 4323-8, 67868-4, 3024-7, 3051-0 ####[facility] LABIA [id number] [place] [id number] [place] CO2 [Moles/Vol] 24 mmol/L Normal 22-30 [facility] Comment on above: Order Comment: Speci men Type: BLOOD SPECIMENOrdering Facility: [facility] Address: [address] [place] [address] Performed By: #### 2 4323-8, 67753-1, 3024-7, 3051-0 ####[facility] [id number] [address] [address] [place] Creatinine [Mass/Vol] 0.75 mg/dL Normal 0.58-0.96 [facility] Comment on above: Order Comment: Speci men Type: BLOOD SPECIMENOrdering Facility: [facility] Address: [address] [place] [address] Performed By: #### 2 4323-8, 59264-2, 3024-7, 3051-0 ####[facility] [id number] [place] [address] [place] eGFRcr SerPlBld CKD-EPI 2020 95 mL/min/1.73m??? Normal >=60 [facility] Comment on above: Order Comment: Sonami men Type: BLOOD SPECIMENOrdering Facility: [facility] Address: [address] [place] [address] Result Comment: Carlie mated Glomerular Filtration Rate (eGFR) is calculated using the 2020 CKD-EPI creatinine equation. This equation utilizes serum creatinine, sex, and age as parameters. The creatinine assay has traceable calibration to isotope dilution-mass spectrometry. Refer to KDIGO guidelines for clinical interpretation. In patients with unstable renal function, e.g. those with acute kidney injury, the eGFR may not accurately reflect actual GFR. Performed By: #### 2 4323-8, 59727-1, 3024-7, 3051-0 ####[facility] [id number] [address] [address] [place] Glucose [Mass/Vol] 75 mg/dL Normal 74-99 [facility] Comment on above: Order Comment: Speci men Type: BLOOD SPECIMENOrdering Facility: [facility] Address: [address] [place] [address] Result Comment: The [place] Diabetes Association (ADA) provides guidance for cutoff values for fasting glucose and random glucose. The ADA defines fasting as no caloric intake for at least 8 hours. Fasting plasma glucose results between 100 to 125 mg/dL indicate increased risk for diabetes (prediabetes). Fasting plasma glucose results greater than or equal to 126 mg/dL meet the criteria for diagnosis of diabetes. In the absence of unequivocal hyperglycemia, results should be confirmed by repeat testing. In a patient with classic symptoms of hyperglycemia or hyperglycemic crisis, random plasma glucose results greater than or equal to 200 mg/dL meet the criteria for diagnosis of diabetes. Reference: Standards of Medical Care in Diabetes 2016, [place] Diabetes Association. Diabetes Care. 2016.39(Suppl 1). Performed By: #### 2 4323-8, 23602-1, 3024-7, 3051-0 ####[facility] [id number] [place] [address] [place] Potassium [Moles/Vol] 4.7 mmol/L Normal 3.7-5.1 [facility] Comment on above: Order Comment: Speci men Type: BLOOD SPECIMENOrdering Facility: [facility] Address: [address] [place] [address] Performed By: #### 2 4323-8, 68967-2, 3024-7, 305-0 ####[facility] [id number] [place] [address] [place] Protein [Mass/Vol] 7.3 g/dL Normal 6.3-8.0 [facility] Comment on above: Order Comment: Speci men Type: BLOOD SPECIMENOrdering Facility: [facility] Address: [address] [place] [address] Performed By: #### 2 4323-8, 90640-9, 3024-7, 3051-0 ####[facility] [id number] [place] [address] [place] Sodium [Moles/Vol] 143 mmol/L Normal 136-144 [facility] Comment on above: Order Comment: Speci men Type: BLOOD SPECIMENOrdering Facility: [facility] Address: [address] [place], [place] [address] Performed By: #### 2 4323-8, 93448-6, 3024-7, 3051-0 ####[facility] LABCLIA [id number] [place] [address] [place] Urea nitrogen [Mass/Vol] 14 mg/dL Normal 7-21 [facility] Comment on above: Order Comment: Speci men Type: BLOOD SPECIMENOrdering Facility: [facility] Address: [address] [place] [address] Performed By: #### 2 4323-8, 81177-2, 3024-7, 3051-0 ####[facility] LABCLIA [id number] [place] [address] [place] Cortis SerPl-mCncon 05-29-20 25 Cortisol [Mass/Vol] 12.0 ug/dL Normal 4.8-19.5 [facility] Comment on above: Order Comment: Speci men Type: BLOOD SPECIMENOrdering Facility: [facility] Address: [address] [place] [address] Result Comment: Prov ided reference range is from 6-10 AM sample collection time. Cortisol Reference Range: 6-10 AM = 4.8-19.5 ug/dL, 4-8 PM = 2.5-11.9 ug/dL Performed By: #### 3 016-3, 1987-5, 2142-6 ####[facility] LABCLIA [id number] [place] [address] [place] ESR Westergren method (Bld) [Velocity]on 05-29-2025 ESR (Bld) [Velocity] 2 mm/h [facility] Interpretation and review of laboratory results Normal [facility] ESR (Bld) [Velocity] 2 mm/h Normal 0-20 [facility] Comment on above: Order Comment: Speci men Type: BLOOD SPECIMENOrdering Facility: [facility] Address: [address] [place] [address] Performed By: #### 5 7021-8, 4537-7 ####[facility] LABCLIA [id number] [address] [place] HbA1c (Bld)Ordered By: Jose Eduardo Evans on 05-29-2025 Average glucose Estimated from glycated hemoglobin (Bld) [Mass/Vol] 91 mg/dL [facility] Comment on above: eAG: (Estimated aver age glucose) is a calculated value from HgbA1c and is instruments sales representative of the average blood glucose level in the last 2-3 month period. HbA1c (Bld) [Mass fraction] 4.8 % 4.3 - 5.6 % [facility] Comment on above: [place] Diabetes As sociation guidelines indicate that patients with HgbA1c in the range 5.7-6.4% are at increased risk for development of diabetes, and intervention by lifestyle modification may be beneficial. HgbA1c greater or equal to 6.5% is considered diagnostic of diabetes. [facility] HbA1c (Bld)on 05-29-2025 Average glucose Estimated from glycated hemoglobin (Bld) [Mass/Vol] 91 mg/dL Normal [facility] Comment on above: Order Comment: Wolf saeed Type: BLOOD SPECIMENOrdering Facility: [facility] Address: [address] [place] [address] Result Comment: eAG: (Estimated average glucose) is a calculated value from HgbA1c and is instruments sales representative of the average blood glucose level in the last 2-3 month period. Performed By: #### 5 5454-3 ####[facility] LABCLIA [id number] [address] OF [facility] HbA1c (Bld) [Mass fraction] 4.8 % Normal 4.3-5.6 [facility] Comment on above: Order Comment: Wolf saeed Type: BLOOD SPECIMENOrdering Facility: [facility] Address: [address] [place] [address] Result Comment: [place] Diabetes Association guidelines indicate that patients with HgbA1c in the range 5.7-6.4% are at increased risk for development of diabetes, and intervention by lifestyle modification may be beneficial. HgbA1c greater or equal to 6.5% is considered diagnostic of diabetes. Performed By: #### 5 5454-3 ####[facility] LABCLIA [id number] [place] [id number] [place] Lipid 1996 panelon 5 Cholesterol [Mass/Vol] 87 mg/dL NINF - 200 mg/dL [facility] Comment on above: <200 mg/dL, Desirabl e 200-239 mg/dL, Borderline high >239 mg/dL, High Cholesterol in HDL [Mass/Vol] 57 mg/dL 39 - PINF mg/dL [facility] Comment on above: 40-59 mg/dL, Accepta ble >59 mg/dL, High: Negative risk factor for coronary heart disease <40 mg/dL, Low: Positive risk factor for coronary heart disease Cholesterol in LDL [Mass/Vol] 22 mg/dL NINF - 100 mg/dL [facility] Comment on above: <100 mg/dL, Optimal 100-129 mg/dL, Near optimal/above optimal 130-159 mg/dL, Borderline high 160-189 mg/dL, High >189 mg/dL, Very high Secondary prevention optimal LDL Cholesterol levels are recommended to be <70 mg/dL LDL cholesterol is calculated using the Lyman-NIH equation. Cholesterol in LDL/Cholesterol in HDL [Mass ratio] 0.39 {ratio} NINF - 2.54 [facility] Comment on above: Reference: 1. National Cholesterol Education Program ATP III Guideline At-A-Glance Quick Desk Reference: National Heart, Lung, and Blood Niles. National Institutes of Health. 2001: NIH Publication No. 01-3305. 2. An International Atherosclerosis Society position paper: global recommendations for the management of dyslipidemia: executive summary, Atherosclerosis. 2014: 232(2):410-413. Cholesterol in VLDL [Mass/Vol] 2 mg/dL NINF - 30 mg/dL [facility] Cholesterol non HDL [Mass/Vol] 30 mg/dL NINF - 130 mg/dL [facility] Comment on above: <130 mg/dL, Optimal 130-159 mg/dL, Near optimal/above optimal 160-189 mg/dL, Borderline high 190-219 mg/dL, High >219 mg/dL, Very high Secondary prevention optimal non HDL Cholesterol levels are recommended to be <100 mg/dL Cholesterol.total/Cho lesterol in HDL [Mass ratio] 1.53 {ratio} NINF - 5.10 [facility] Fasting Time 12 hrs [facility] Triglyceride [Mass/Vol] 15 mg/dL NINF - 150 mg/dL [facility] Comment on above: <150 mg/dL, Normal 150-199 mg/dL, Borderline high 200-499 mg/dL, High >499 mg/dL, Very high Cholesterol [Mass/Vol] 87 mg/dL Normal <200 [facility] Comment on above: Order Comment: Speci men Type: BLOOD SPECIMENOrdering Facility: [facility] Address: [address] [place] [address] Result Comment: <200 mg/dL, Desirable 200-239 mg/dL, Borderline high >239 mg/dL, High Performed By: #### 2 4323-8, 11392-8, 3024-7, 3051-0 ####[facility] LABCLIA [id number] [address] STATES OF [facility] Cholesterol in HDL [Mass/Vol] 57 mg/dL Normal >39 [facility] Comment on above: Order Comment: Sonami men Type: BLOOD SPECIMENOrdering Facility: [facility] Address: [address] [place] [address] Result Comment: 40-5 9 mg/dL, Acceptable >59 mg/dL, High: Negative risk factor for coronary heart disease <40 mg/dL, Low: Positive risk factor for coronary heart disease Performed By: #### 2 4323-8, 80879-7, 3024-7, 3051-0 ####[facility] LABCLIA [id number] [place] [id number] [place] Cholesterol in LDL [Mass/Vol] 22 mg/dL Normal <100 [facility] Comment on above: Order Comment: Speci men Type: BLOOD SPECIMENOrdering Facility: [facility] Address: [address] [place] [address] Result Comment: <100 mg/dL, Optimal 100-129 mg/dL, Near optimal/above optimal 130-159 mg/dL, Borderline high 160-189 mg/dL, High >189 mg/dL, Very high Secondary prevention optimal LDL Cholesterol levels are recommended to be <70 mg/dL LDL cholesterol is calculated using the Lyman-NIH equation. Performed By: #### 2 4323-8, 13049-8, 3024-7, 3051-0 ####[facility] LABIA [id number] [address] [place] [address] [place] Cholesterol in LDL/Cholesterol in HDL [Mass ratio] 0.39 {ratio} Normal <2.54 [facility] Comment on above: Order Comment: Speci men Type: BLOOD SPECIMENOrdering Facility: [facility] Address: [address] [place] [address] Result Comment: Geeta robertson: 1. National Cholesterol Education Program ATP III Guideline At-A-Glance Quick Desk Reference: National Heart, Lung, and Blood Niles. National Institutes of Health. 2001: NIH Publication No. 01-3305. 2. An International Atherosclerosis Society position paper: global recommendations for the management of dyslipidemia: executive summary, Atherosclerosis. 2014: 232(2):410-413. Performed By: #### 2 4323-8, 91308-9, 3024-7, 3051-0 ####[facility] LABIA [id number] [address] [address] [place] Cholesterol in VLDL [Mass/Vol] 2 mg/dL Normal <30 [facility] Comment on above: Order Comment: Speci men Type: BLOOD SPECIMENOrdering Facility: [facility] Address: [address] [place] [address] Performed By: #### 2 4323-8, 69649-7, 3024-7, 3051-0 ####[facility] LABIA [id number] [address] [address] [place] Cholesterol non HDL [Mass/Vol] 30 mg/dL Normal <130 [facility] Comment on above: Order Comment: Speci men Type: BLOOD SPECIMENOrdering Facility: [facility] Address: [address] [place] [address] Result Comment: <130 mg/dL, Optimal 130-159 mg/dL, Near optimal/above optimal 160-189 mg/dL, Borderline high 190-219 mg/dL, High >219 mg/dL, Very high Secondary prevention optimal non HDL Cholesterol levels are recommended to be <100 mg/dL Performed By: #### 2 4323-8, 83241-0, 3024-7, 3051-0 ####[facility] LABCLIA [id number] [facility] [address] [place] [address] [place] Cholesterol.total/Cho lesterol in HDL [Mass ratio] 1.53 {ratio} Normal <5.10 [facility] Comment on above: Order Comment: Speci men Type: BLOOD SPECIMENOrdering Facility: [facility] Address: [address] [place] [address] Performed By: #### 2 4323-8, 28198-2, 7, 305-0 ####[facility] LABCLIA [id number] [address], [address] [place] FASTING TIME 12 hrs Normal [facility] Comment on above: Order Comment: Speci men Type: BLOOD SPECIMENOrdering Facility: [facility] Address: [address] [place] [address] Performed By: #### 2 4323-8, 51979-1, 3024-04, 305-0 ####[facility] LABCLIA [id number] [address] [place] Triglyceride [Mass/Vol] 15 mg/dL Normal <150 [facility] Comment on above: Order Comment: Speci men Type: BLOOD SPECIMENOrdering Facility: [facility] Address: [address] [place], [place] [address] Result Comment: <150 mg/dL, Normal 150-199 mg/dL, Borderline high 200-499 mg/dL, High >499 mg/dL, Very high Performed By: #### 2 4323-8, 18994-5, 3024-7, 305-0 ####[facility] LABCLIA [id number] [place] [id number] [place] No Panel Informationon 05-29 Interpretation and review of laboratory results Normal [facility] Interpretation and review of laboratory results Normal [facility] T3, FREEon 05-29-2025 Free T3 [Mass/Vol] 3.0 pg/mL 2.3 - 4.1 pg/mL [facility] T3Free SerPl-mCncon 05-29-20 Free T3 [Mass/Vol] 3.0 pg/mL Normal 2.3-4.1 [facility] Comment on above: Order Comment: Speci men Type: BLOOD SPECIMENOrdering Facility: [facility] Address: [address] [place] [address] Performed By: #### 2 4323-8, 20183-5, 3023-7, 305-0 ####[facility] LABCLIA [id number] [place] [id number] [place] T4 FREE/FREE THYROXINEon Free T4 [Mass/Vol] 1.3 ng/dL 0.9 - 1.7 ng/dL [facility] T4 Free SerPl-mCncon 025 Free T4 [Mass/Vol] 1.3 ng/dL Normal 0.9-1.7 [facility] Comment on above: Order Comment: Speci men Type: BLOOD SPECIMENOrdering Facility: [facility] Address: [address] [place], [place] [address] Performed By: #### 2 4323-8, 41483-1, 7, 305-0 ####[facility] LABCLIA [id number] [address] [address] [place] THYROID STIMULATING HORMONEo n 05-29-2025 TSH Qn 0.746 m[IU]/L [facility] TSH SerPl-aCncon 05-29-2025 TSH Qn 0.746 m[IU]/L Normal 0.270-4.200 [facility] Comment on above: Order Comment: Speci men Type: BLOOD SPECIMENOrdering Facility: [facility] Address: [address] [place] [address] Performed By: #### 3 016-3, 1987-, 2143-03 ####[facility] LABCLIA [id number] [place] [address] [place] CNOVon 04-23-2025 CNOV Office Visit (GENSWS ) [place] ([id number]) 1970 F Date Time Provider Department 04/23/25 10:30 AM ROLAND KIM During your visit today, we recorded the following information about you: Tommie Catherine RN 04/23/2025 10:26 AM Signed UNIVERSAL PROTOCOL / SAFETY CHECKLIST Procedure to be Performed: Sign In:Ultrasound Guided Fine Needle Aspiration Thyroid right A Moment of CARE was completed. Appropriate PPE (Personal Protective Equipment) worn by all providers involved with the procedure. Special equipment utilized ultrasound. Patient/Surrogate Stated/Verified: Patient name, Date of , Relevant allergies, and The intended procedure Time Out: Relevant labs, photos, and/or imaging studies have been reviewed. Intended patient and procedure match the source document(s) (e.g. consent, HANDP, associated studies [imaging, pathology]) match the intended patient and procedure. Consent obtained and matches the intended procedure. Yes. Correct side/site has been marked and visible. Medications required for this procedure are verified. Fire risk assessed and is not applicable. Implants: are not applicable. Sign Out: Specimens are all correctly labeled and sent. All instruments, equipment, possible retained foreign bodies are accounted for. Yes. The post-procedure plan of care has been communicated to the patient or surrogate. Tommie Catherine RN 04/23/2025 10:34 AM Signed The following instructions are important for you related to your office visit today with the [facility]. Instructions After THYROID FINE NEEDLE ASPIRATION Please do not take aspirin or other blood thinners for the next few days. If you have bleeding from the needle site, hold pressure with a clean gauze. If the bleeding continues, contact our office immediately. I recommend taking Advil or Tylenol for the discomfort. An ice pack may improve your discomfort to the area. Contact our office immediately if you have any questions or concerns @ [phone]. Please make an appointment to follow up in one week with your physician and thank you for choosing the [facility]. If you note any additional difficulties, questions, or concerns, you should contact our office immediately @ [phone] and ask to be transferred to the General Surgery department. Roland Kim MD 04/23/2025 12:29 PM Signed Preoperative diagnosis: Multinodular goiter Postoperative diagnosis: The same Procedure: Ultrasound-guided fine-needle aspiration of dominant right thyroid nodule Surgeon: Duane Procedure: Ultrasound the right thyroid gland and inferior lobe revealed the nodule in question. Prepped the skin with alcohol. Injected 1% lidocaine plain. Under ultrasound guidance for fine-needle aspirations were performed. These were plated on glass slides. Under ultrasound guidance Afirma test was sent. Sterile dressings were applied patient tolerated the procedure well. Allergies As of Date: 04/23/2025 Noted Allergy Reaction WELLBUTRIN (BUPROPION HCL) 04/21/2010 2 - Rash Comments: See 04/21/2010 Date Reviewed: 04/15/2025 Reviewed by: Tommie Catherine RN - Fully Assessed Primary Visit Diagnosis:Multinodular goiter [E04.2] Order(s):US THYROID BIOPSY RIGHT (POC) SURG USE ONLY [1275147] Order #: [id number]. #:[id number]: 1 CYTOLOGY NON-MORNING NANNY [KYB2441] Order #: [id number]. #:[id number] Prescriptions as of 04/24/2025 - busPIRone (BUSPAR) 5 mg tablet Take 1 tablet by mouth two times a day as needed (anxiety symptoms). - dextroamphetamine-amphe tamine (ADDERALL) 5 mg tablet Take 1 tablet by mouth two times a day for 30 days. - MULTIVITAMIN ORAL Take by mouth. Meds Comments as of 04/20/2021: Magnesium glyconate 425mg- two before bed Problem List As Of Date 04/23/2025 Noted Resolved Routine general medical examination at a health*11/29/2008 07/24/2012 Anxiety [F41.9] 12/10/2009 Unspecified pruritic disorder [L29.9] 07/24/2012 Vaginitis [N76.0] 07/24/2012 Acne [L70.9] 12/24/2013 Bright red blood per rectum [K62.5] 04/29/2016 ADD (attention deficit disorder) [F98.8] Fatty liver [K76.0] 05/2023 Other instructions from your clinician: The following instructions are important for you related to your office visit today with the [facility]. Instructions After THYROID FINE NEEDLE ASPIRATION Please do not take aspirin or other blood thinners for the next few days. If you have bleeding from the needle site, hold pressure with a clean gauze. If the bleeding continues, contact our office immediately. I recommend taking Advil or Tylenol for the discomfort. An ice pack may improve your discomfort to the area. Contact our office immediately if you have any questions or concerns @ [phone]. Please make an appointment (more content not included)... Normal [facility] CYTOLOGY NON-GYNon 5 AP DISCLAIMER Normal [facility] Comment on above: Order Comment: Speci men Type: SPECIMEN OBTAINED BY ASPIRATIONOrdering Facility: [facility] Address: [address] [place] [address] Result Comment: Eddie Gonzales Test (LDT) Disclaimer: Performance characteristics of immunohistochemical, immunofluorescent, and chromogenic in-situ hybridization tests have been determined by the performing laboratory within [facility] ([facility], [facility], [facility], [facility], [facility], [facility], or [facility]) in a manner consistent with CLIA requirements. One or more of these tests may not have been cleared or approved by the FDA. [facility] is regulated under CLIA as qualified to perform high-complexity testing. These tests are used for clinical purposes. These should not be regarded as investigational or for research. Positive and negative controls stain appropriately. Performed By: #### C YTONON ####[facility] LABCLIA [id number] [place] [address] [place] CASE REPORT Normal [facility] Comment on above: Order Comment: Speci men Type: SPECIMEN OBTAINED BY ASPIRATIONOrdering Facility: [facility] Address: [address] [place] [address] Result Comment: [facility] Report Case: [id number] Authorizing Provider: Roalnd Kim MD Collected: 04/23/2025 10:38 AM Ordering Location: General Surgery Received: 04/24/2025 09:00 AM Pathologist: Thelma Ennis MD Specimen: Thyroid, Right, Lobe, Right thyroid Performed By: #### C YTONON ####[facility] LABCLIA [id number] [address] [place] CLINICAL HISTORY Right thyroid Normal [facility] Comment on above: Order Comment: Speci men Type: SPECIMEN OBTAINED BY ASPIRATIONOrdering Facility: [facility] Address: [address] [place] [address] Result Comment: Afir ma sample received Performed By: #### C YTONON ####[facility] LABCLIA [id number] [address] FINAL DIAGNOSIS Normal [facility] Comment on above: Order Comment: Speci men Type: SPECIMEN OBTAINED BY ASPIRATIONOrdering Facility: [facility] Address: [address] [place] [address] Result Comment: A - Thyroid, Right, Lobe, FNA - Right thyroid Benign. Consistent with colloid nodule. The following cell blocks were associated with this case: A1\X09\Cell Block, Alcohol Fixed\X09\ at 1054 EDT Performed By: #### C YTONON ####[facility] LABCLIA [id number] [place] [id number] [facility] [place] FINAL PERFORMING LAB Normal [facility] Comment on above: Order Comment: Speci men Type: SPECIMEN OBTAINED BY ASPIRATIONOrdering Facility: [facility] Address: [address] [place] [address] Result Comment: Tech nical component, cemetery workers supervisor screening performed at: [facility], [address] [place] [address] CLIA: [id number] Diagnostic interpretation performed at: [facility], [address] [place] [address] CLIA# [id number] Government Auditor: Miguel Ángel Hammonds MD Performed By: #### C YTONON ####[facility] LABCLIA [id number] [place] [address] [place] GROSS DESCRIPTION Normal [facility] Comment on above: Order Comment: Speci men Type: SPECIMEN OBTAINED BY ASPIRATIONOrdering Facility: [facility] Address: [address] [place] [address] Result Comment: A. T hyroid, Right, Lobe 30 cc clear pink CytoLyt with scant particles. ThinPrep and Cell Block prepared and 12 smears. Afirma sample received Performed By: #### C YTONON ####[facility] LABCLIA [id number] [place] [address] [place] US THYROID BIOPSY RIGHT (POC ) SURG USE ONLYon 04-23-2025 [facility] CNOVon 04-15-2025 CNOV Office Visit (IMANS ) [place] COLON ([id number]) 1970 F Date Time Provider Department 04/15/25 8:45 AM SAILAJA REAL During your visit today, we recorded the following information about you: Temperature Pulse Blood pressure Weight 97.2 degrees 100/minute 118/82 74.7 kg Height 1.676 m Sailaja Real MD 04/15/2025 9:03 AM Signed Ny Colon 1970 REFERRING PHYSICIAN: Td Vick DO CHIEF COMPLAINT: Consult (Thyroid nodule) HPI: The patient is a 55 year old female presents with abnormal ultrasound of thyroid. She had previous been noted with multinodular goiter by thyroid ultrasound in 2021. She notes that in the past 6 months she has coughing when lying supine. She denies choking sensation. She denies swallowing difficulties. She denies unusual exposure to radiation. She denies history of thyroiditis. She notes no immediate family members with thyroid cancer. PAST MEDICAL HISTORY Diagnosis Date ADD (attention deficit disorder) Fatty liver 05/2023 Personal history of malignant melanoma of skin age 36 Kristie, follows regularly, Independent Driver Thyroid nodule Ulcerative proctitis (HCC) PAST SURGICAL HISTORY Procedure Laterality Date DELIVERY ONLY 1998, 2000 , low cervical COLONOSCOPY 05/11/2016 proctitis, ulcerations COLONOSCOPY 09/09/2023 int hemorrhoids, neg random biopsies PAST SURGICAL HISTORY OF 09/2006 Dr. Flowers, [facility]; right ankle mole remoal-path + melanoma in situ Current Outpatient Medications Medication Sig MULTIVITAMIN ORAL Take by mouth. busPIRone (BUSPAR) 5 mg tablet Take 1 tablet by mouth two times a day as needed (anxiety symptoms). dextroamphetamine-amphe tamine (ADDERALL) 5 mg tablet Take 1 tablet by mouth two times a day for 30 days. No current facility-administered medications for this visit. ALLERGIES: Wellbutrin [Bupropion Hcl] PERSONAL HISTORY: Social History Tobacco Use Smoking status: Never Smokeless tobacco: Never Vaping Use Vaping status: Never Used Substance Use Topics Alcohol use: Yes Comment: rare Drug use: No FAMILY HISTORY Problem Relation Age of Onset Hypertension Mother late 30's Thyroid Mother unknown type Psychiatry Mother Allergies Father Hypertension Father Psychiatry Father Thyroid Sister Hypertension Brother Hypertension Brother other (thyroidectom) Brother Stroke Maternal Grandmother later in life (70's) Hypertension Maternal Grandmother Hypertension Maternal Aunt age unknown Hypertension Maternal Aunt age unknown Thyroid Maternal Aunt Diabetes Other none Coronary Artery Disease Other none Colon Cancer No Family History Liver Disease No Family History REVIEW OF SYSTEMS: General - denies fevers, intentional weight loss HEENT - denies trauma/infections Resp - denies breathing difficulties Cardiac - denies chest pain GI - denies vomiting up of blood 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 The patient is oriented to time, place, and person. VITALS: Blood pressure 118/82, pulse 100, temperature 36.2 ?C (97.2 ?F), height 167.6 cm (5' 6), weight 74.7 kg (164 lb 9.6 oz), last menstrual period 10/23/2018, SpO2 98%. Body mass index is 26.57 kg/m?. Head - Normocephalic. EOM intact with sclera clear and no icterus noted. . Neck - supple with no jugular venous distention noted. Trachea is midline. No thyroid masses noted. Neck is supple with no tracheal deviation Cardiac: normal heart sounds, regular Respiratory: Normal respiratory excursion and pattern. Abdominal exam: benign Extremities: no clubbing, cyanosis or edema. Neuro: non focal Psych: normal mood The sensitive examination was discussed with the Patient or Patient's Authorized Burrito Maker. As applicable, any other physician, advance practice provider, medical student, or other health professional student that will be observing or involved in the sensitive examination for educational or training purposes was discussed with the Patient or Authorized Burrito Maker. The Patient or Authorized Burrito Maker has agreed to proceed with the sensitive examination. (Sensitive examination includes inspection and/or palpation of the breasts, pelvis, prostate and anorectal regions) Assessment IMPRESSION: abnormal thyroid ultrasound PLAN: I have discussed the above with the patient and her who is present with her I have recommended US guided FNA of right lower thyroid nodule I have explained the procedure to the patient. I have counseled the patient as to the risks of the procedure, including but not limited to: infection, bleeding etc. - the patient understa (more content not included)... Normal [facility] Aubrie 04-03-2025 [facility] Telephone (FAMPWS) [place] COLON ([id number]) 1970 F Date Time Provider Department 04/03/25 TD VICKWS During your visit today, we recorded the following information about you: Td Vick DO 04/03/2025 7:05 AM Signed Please inform patient that her thyroid US results show IMPRESSION: Multiple thyroid nodules. Nodule #3 has slightly increased in size and now has size/category for which FNA is recommended. This means that the one nodule in the right lower lobe is of size and appearance that it needs a fine needle aspiration biopsy by a general surgeon or an endocrine surgeon, whichever she prefers, either does a great job. This will make sure that the nodule is benign DO Jules Rodriguez Stephanie, RN 04/03/2025 9:17 AM Signed Patient notified of results and provider's instructions. Patient verbalizes understanding. Dahlia Santiago RN Allergies As of Date: 04/03/2025 Noted Allergy Reaction WELLBUTRIN (BUPROPION HCL) 04/21/2010 2 - Rash Comments: See 04/21/2010 Date Reviewed: 06/01/2024 Reviewed by: Selene Lindsey PA-C - Fully Assessed Reason for Visit: Results [95] Primary Visit Diagnosis:Right thyroid nodule [E04.1] Order(s):CONSULT TO GENERAL SURGERY [9061] Order #: [id number]: 1 FUTURE Prescriptions as of 04/03/2025 - busPIRone (BUSPAR) 5 mg tablet Take 1 tablet by mouth two times a day as needed (anxiety symptoms). - dextroamphetamine-amphe tamine (ADDERALL) 5 mg tablet Take 1 tablet by mouth two times a day for 30 days. - MULTIVITAMIN ORAL Take by mouth. Meds Comments as of 04/20/2021: Magnesium glyconate 425mg- two before bed Problem List As Of Date 04/03/2025 Noted Resolved Routine general medical examination at a [facility]*11/29/2008 07/24/2012 Anxiety [F41.9] 12/10/2009 Unspecified pruritic disorder [L29.9] 07/24/2012 Vaginitis [N76.0] 07/24/2012 Acne [L70.9] 12/24/2013 Bright red blood per rectum [K62.5] 04/29/2016 ADD (attention deficit disorder) [F98.8] Fatty liver [K76.0] 05/2023 Encounter Status:Closed by DAHLIA SANTIAGO on 04/03/25 Normal [facility] US THYROID/PARATHYROIDon US THYROID/PARATHYROID * * *Final Report* * * DATE OF EXAM: Apr 01 2025 8:36AM WRU [id number] - US THYROID/PARATHYROID / PROCEDURE REASON: Multiple thyroid nodules * * * * Physician Interpretation * * * * EXAMINATION: THYROID ULTRASOUND CLINICAL HISTORY: Multiple thyroid nodules . Follow-up thyroid nodules TECHNIQUE: Sonography and Doppler imaging of the thyroid was performed. Images were obtained and stored in a permanent archive. MQ: UST_1 COMPARISON: Ultrasound 04/23/2022 RESULT: . Right Lobe: 6.9 cm x 2.4 cm x 2.3 cm Left Lobe: 5.0 cm x 1.8 cm x 1.4 cm Isthmus: 0.3 cm Parenchyma: Mild diffuse parenchymal heterogeneity with expected vascularity. NODULES: Most suspicious nodules (up to 4) detailed below: Nodule #1 Location: Right upper pole Size: 8 x 6 x 4 mm ; not discretely measured on prior exam Characteristics: Vascularity present Composition: Solid or almost completely solid, 2 points Echogenicity: Hypoechoic, 2 points Shape: Rehvp-hofc-zclx, 0 points Margin: Smooth, 0 points Echogenic foci: Possible- Punctate echogenic foci, 3 points; or the echogenic foci could be associated with hinton of tiny cystic areas TI-RADS Category: 5 ACR Recommendation: Follow up imaging is advised annually for 5 years. Nodule #2 Location: Right midpole Size: 1.3 x 1.1 x 0.6 cm ; previously 1.1 x 1 x 0.5 cm Characteristics: Vascularity present Composition: Solid or almost completely solid, 2 points Echogenicity: Hypoechoic, 2 points Shape: Tzmhq-spig-ppmm, 0 points Margin: Smooth, 0 points Echogenic foci: None, 0 points TI-RADS Category: 4 ACR Recommendation: Follow up imaging in 1, 2, 3 and 5 years is advised. Nodule #3 Location: RIGHT lower Size: 1.6 x 1.7 x 1.2 cm ; previously 1.4 x 1.4 x 1 cm Characteristics: Vascularity present Composition: Solid or almost completely solid, 2 points Echogenicity: Hypoechoic, 2 points Shape: Ttbde-sfox-klup, 0 points Margin: Smooth, 0 points Echogenic foci: Macrocalcifications, 1 point TI-RADS Category: 4 ACR Recommendation: FNA is recommended. Nodule #4 Location: LEFT lower Size: 6 x 5 x 4 mm ; similar to the prior. Characteristics: Composition: Solid or almost completely solid, 2 points Echogenicity: Hypoechoic, 2 points Shape: Qqkxq-uiga-vedl, 0 points Margin: Smooth, 0 points Echogenic foci: None, 0 points TI-RADS Category: 4 ACR Recommendation: No FNA or follow-up imaging is advised. Additional nodules are also again seen. - IMPRESSION: Multiple thyroid nodules. Nodule #3 has slightly increased in size and now has size/category for which FNA is recommended. ACR Recommendation: TI-RADS 4 nodule greater than 1.5 cm. FNA is recommended. ACR recommendations are strictly based on the size and imaging appearance at the time of the exam and do not consider stability or previous biopsy results. [employer] Operator: PSCB Transcribe Date/Time: Apr 03 2025 6:55A Dictated by : PEBBLES ESPINOSA MD This examination was interpreted and the report reviewed and electronically signed by: PEBBLES ESPINOSA MD on Apr 03 2025 6:58AM EST [id number] Normal [facility] 12 Lead EKGon 10-20-2024 12 Lead EKG [facility] Cardiovascular Services [address] [place] [address] 12 Lead EKG 10/20/24 1312 MR#: [id number] Acct: [id number] Name: [place] COLON Rep #: [id number] : 1970 54 From: Forrest Sanchez MD Attending Dr: Status: DEP ER Ordering Dr: Roberto Sinha DO Date: 10/20/24 Location: ED Sex: F C Admitted: Test Reason : CP Blood Pressure : */* mmHG Vent. Rate : 82 BPM Atrial Rate : 82 BPM P-R Int : 158 ms QRS Dur : 94 ms QT Int : 368 ms P-R-T Axes : 73 -12 36 degrees QTcB Int : 429 ms Normal sinus rhythm Incomplete right bundle branch block Borderline ECG Confirmed by FORREST SANCHEZ MD ([id number]), state editor GALEN ROSE ([id number]) on 10/22/2024 1:57:56 PM Referred By: Roberto Sinha Confirmed By: FORREST SANCHEZ MD 10/22/24 1357 Date Forrest Sanchez MD CC: Dr. Td Vick DO; Dr. Roberto Sinha DO Signed Normal [facility] Basic Metabolic Profile (BMP )on 10-20-2024 BUN/CRE 13.6 RATIO Normal 10-20 [facility] Comment on above: Order Comment: 1 Y Performed By: #### L 100.0100, L501.5425, L500.2500 #### [facility] Laboratory [address] [place], [address] CA,Total 9.2 mg/dL Normal 8.5-10.1 [facility] Comment on above: Order Comment: 1 Y Performed By: #### L 100.0100, L501.5425, L500.2500 #### [facility] [address] [place], [address] Chloride [Moles/Vol] 106 mmol/L Normal 98-107 [facility] Comment on above: Order Comment: 1 Y Performed By: #### L 100.0100, L501.5425, L500.2500 #### [facility] [address] [place], [address] CO2 [Moles/Vol] 32.0 mmol/L Normal 21.0-32.0 [facility] Comment on above: Order Comment: 1 Y Performed By: #### L 100.0100, L501.5425, L500.2500 #### [facility] [address] [place], [address] Creatinine [Mass/Vol] 0.81 mg/dL Normal 0.55-1.02 [facility] Comment on above: Order Comment: 1 Y Result Comment: The validity of the calculated GFR GFRAA in patients over 70 years has not been determined. Clinical correlation is essential. Performed By: #### L 100.0100, L501.5425, L500.2500 #### [facility] [address] [place], [address] ECRCL 83.33 ml/min Normal [facility] Comment on above: Order Comment: 1 Y Performed By: #### L 100.0100, L501.5425, L500.2500 #### [facility] [address] [place], [address] EST GFR - AA 95 mL/min Normal >60 [facility] Comment on above: Order Comment: 1 Y Result Comment: Afri can [place] GFR Calc Performed By: #### L 100.0100, L501.5425, L500.2500 #### [facility] [address] [place], [address] GAP 3 Low 5-15 [facility] Comment on above: Order Comment: 1 Y Performed By: #### L 100.0100, L501.5425, L500.2500 #### [facility] [address] [place], [address] GFR/1.73 sq M.predicted among non-blacks MDRD (S/P/Bld) [Vol rate/Area] 78 mL/min/{1.73_m2} Normal >60 [facility] Comment on above: Order Comment: 1 Y Result Comment: Non- GFR Calc Performed By: #### L 100.0100, L501.5425, L500.2500 #### [facility] [address] [place], [address] Glucose [Mass/Vol] 105 mg/dL Normal 74-106 [facility] Comment on above: Order Comment: 1 Y Result Comment: Fast ing Glucose result from 100 to 125 mg/dL suggests IMPAIRED HOMEOSTASIS per A.D.A. criteria. Performed By: #### L 100.0100, L501.5425, L500.2500 #### [facility] [address] [place], [address] Potassium [Moles/Vol] 3.7 mmol/L Normal 3.5-5.1 [facility] Comment on above: Order Comment: 1 Y Performed By: #### L 100.0100, L501.5425, L500.2500 #### [facility] [address] [place], [address] Sodium [Moles/Vol] 142 mmol/L Normal 136-145 [facility] Comment on above: Order Comment: 1 Y Performed By: #### L 100.0100, L501.5425, L500.2500 #### [facility] [address] [place], [address] Urea nitrogen [Mass/Vol] 11 mg/dL Normal 7-18 [facility] Comment on above: Order Comment: 1 Y Performed By: #### L 100.0100, L501.5425, L500.2500 #### [facility] [address] [place], [address] CBC W/Diff, Automatedon 10-10 Absolute Lymph 2.59 X10 3/uL Normal 0.83-4.51 [facility] Comment on above: Performed By: #### L 100.0100, L501.5425, L500.2500 #### [facility] [address] [place], [address] Absolute Neut 3.6 X10 3/uL Normal 2.0-7.7 [facility] Comment on above: Performed By: #### L 100.0100, L501.5425, L500.2500 #### [facility] [address] [place], [address] Basophils/100 WBC (Bld) 0.7 % Normal 0-1 [facility] Comment on above: Performed By: #### L 100.0100, L501.5425, L500.2500 #### [facility] [address] [place], [address] Eosinophils/100 WBC (Bld) 3.2 % Normal 0-5 [facility] Comment on above: Performed By: #### L 100.0100, L501.5425, L500.2500 #### [facility] [address] [place], [address] Erythrocyte distribution width (RBC) [Ratio] 12.9 % Normal 11.6-14.6 [facility] Comment on above: Performed By: #### L 100.0100, L501.5425, L500.2500 #### [facility] [address] [place], [address] Hematocrit (Bld) [Volume fraction] 41.5 % Normal 37-47 [facility] Comment on above: Performed By: #### L 100.0100, L501.5425, L500.2500 #### [facility] [address] [place], [address] Hemoglobin (Bld) [Mass/Vol] 14.0 g/dL Normal 12.0-15.0 [facility] Comment on above: Performed By: #### L 100.0100, L501.5425, L500.2500 #### [facility] [address] [place], [address] IG% 0.300 Normal 0.0-0.9 [facility] Comment on above: Result Comment: IG% - Immature Granulocytes (promyelocytes, myelocytes and metamyelocytes) > 1% indicates that a LEFT SHIFT is Present. Performed By: #### L 100.0100, L501.5425, L500.2500 #### [facility] [address] [place], [address] Lymphocytes/100 WBC (Bld) 37.2 % Normal 19-41 [facility] Comment on above: Performed By: #### L 100.0100, L501.5425, L500.2500 #### [facility] [address] [place], [address] MCH (RBC) [Entitic mass] 30.2 pg Normal 27.0-32.0 [facility] Comment on above: Performed By: #### L 100.0100, L501.5425, L500.2500 #### [facility] [address] [place], [address] MCHC (RBC) [Mass/Vol] 33.7 g/dL Normal 32-36 [facility] Comment on above: Performed By: #### L 100.0100, L501.5425, L500.2500 #### [facility] [address] [place], [address] MCV (RBC) [Entitic vol] 89.4 fL Normal 81-99 [facility] Comment on above: Performed By: #### L 100.0100, L501.5425, L500.2500 #### [facility] [address] [place], [address] Monocytes/100 WBC (Bld) 7.7 % Normal 0-10 [facility] Comment on above: Performed By: #### L 100.0100, L501.5425, L500.2500 #### [facility] [address] [place], [address] Neutrophils/100 WBC (Bld) 50.9 % Normal 47-70 [facility] Comment on above: Performed By: #### L 100.0100, L501.5425, L500.2500 #### [facility] [address] [place], [address] Nucleated RBC (Bld) [#/Vol] 0 10*3/uL Normal 0-5 [facility] Comment on above: Performed By: #### L 100.0100, L501.5425, L500.2500 #### [facility] [address] [place], [address] Platelet mean volume (Bld) [Entitic vol] 10.5 fL Normal 6.2-12.0 [facility] Comment on above: Performed By: #### L 100.0100, L501.5425, L500.2500 #### [facility] [address] [place], [address] Platelets (Bld) [#/Vol] 257 10*3/uL Normal 150-450 [facility] Comment on above: Performed By: #### L 100.0100, L501.5425, L500.2500 #### [facility] [address] [place], [address] RBC (Bld) [#/Vol] 4.64 10*6/uL Normal 4.2-5.4 [facility] Comment on above: Performed By: #### L 100.0100, L501.5425, L500.2500 #### [facility] [address] [place], [address] RDW SD 41.7 fl Normal 35.1-43.9 [facility] Comment on above: Performed By: #### L 100.0100, L501.5425, L500.2500 #### [facility] [address] [place], [address] WBC (Bld) [#/Vol] 7.0 10*3/uL Normal 4.4-11.0 [facility] Comment on above: Performed By: #### L 100.0100, L501.5425, L500.2500 #### [facility] [address] [place], [address] Chest 1 View (Portable)on Chest 1 View (Portable) [facility] Imaging Services [address] [place] [address] Chest 1 View (Portable) MR#: [id number] Acct: [id number] Name: [place] COLON Rep #: [id number] : 1970 F 54 From: Kyle Naylor PCP: Dr. Td Vick DO Status: REG ER Study: Chest 1 View (Portable) Date of Exam: 10/20/24 Exam# [id number] Ordering [place]: [place] [id number] INDICATION: chest pain EXAMINATION/TECHNIQUE: X-RAY - XR Chest 1 View COMPARISON: No relevant prior comparison study available FINDINGS: LINES/DEVICES: None. LUNGS: No consolidation, edema or effusion. No pneumothorax. MEDIASTINUM AND CARDIOVASCULAR STRUCTURES: Cardiac silhouette not enlarged. Central airways and mediastinal contour are unremarkable. BONES AND SOFT TISSUES: Unremarkable. RAD/Chest 1 View (Portable) IMPRESSION: No radiographic evidence of acute cardiopulmonary disease. Electronically Signed: Kyle Romano MD at 14:00 EST , CC: Dr. Td Vick DO; Dr. Roberto Sinha DO [employer] Operator: Signed Normal [facility] Emergency Department Summary on 10-20-2024 Emergency Department Summary [facility] Medical Records Department [address] [place] [address] Emergency Department Summary 10/20/24 MR#: [id number] Acct: [id number] Name: NY COLON Rep #: [id number] : 1970 54 From: Roberto Sinha DO PCP: Dr. Td Vick, DO Status:REG ER Location: ED HPI History of Present Illness Chief Complaint: Chest Pain PFSH PFSH Medical History no medical history Allergy/AdvReac Type Severity Reaction Status Date / Time bupropion (From Wellbutrin Allergy Intermediate Swelling Verified 10/20/24 13:07 SR) Family History no significant family his Surgical History no surgical history Social History Smoking Status: Never smoker EXAM Physical Exam Const Vital Signs: 10/20/24 13:04 10/20/24 13:19 10/20/24 14:04 Temperature 97.1 F L Temperature Source Oral Pulse Rate 89 82 Respiratory Rate 16 16 Blood Pressure 134/92 H 130/88 H Blood Pressure Mean 106 102 Pulse Ox 96 100 93 Oxygen Delivery Method Room Air Room Air Room Air 10/20/24 15:00 10/20/24 16:00 Temperature Temperature Source Pulse Rate 89 87 Respiratory Rate 16 Blood Pressure 128/99 H 125/89 H Blood Pressure Mean 108 101 Pulse Ox 98 98 Oxygen Delivery Method MDM MDM MDM Narrative Medical decision making narrative: HISTORY OF PRESENT ILLNESS: 54-year-old female presents with chest pain rating to her jaw. She states this began this morning and is since resolved. She attributes this to indigestion. Chest pain-free at this time. No cough fever chills. No shortness of breath. No lower extremity edema. No focal numbness weakness or loss sensation. Patient denies sudden onset of pain, no tearing sensation, no migratory symptoms, no new numbness, weakness or loss of sensation. Patient denies family history or personal history of Connective tissue disorders (Marfan's Syndrome, Gin Danlos etc) The patient denies recent surgery in the last 4 weeks or immobilization in the last 3 days, denies previous diagnosis of DVT or PE, hemoptysis, unilateral leg swelling or malignancy with treatment the last 6 months or palliative. No estrogen use noted. REVIEW OF SYSTEMS: Pertinent positives: Chest pain Pertinent negatives: SOB PHYSICAL EXAM: Nursing triage notes reviewed, Vital signs reviewed Constitutional: please see mdm HENT: MMM Eyes: Pupils equal round and reactive to light, Extraocular muscles intact Neck: No stridor, no JVD, full neck ROM Lungs: Clear to auscultation, No wheezing or rales. No increased work of breathing, no conversational dyspnea, no accessory muscle use, no nasal flaring. No respiratory distress noted Heart: Regular rate and rhythm, No murmurs, No rubs and No gallops, 2+ distal pulses (radial, femoral, posterior tibial) in all extremities Abdomen: Soft, there is no tenderness, rigidity, rebound or guarding, no obvious peritoneal signs, no palpable pulsatile abdominal masses, no auscultated abdominal bruit : No CVAT Extremities: No edema Neuro: No new focal neurological deficits, cranial nerves II through XII intact, 5/5 strength in all present extremities. Intact sensation to light touch in all present extremities, 2+ reflexes bilateral patella tendons. Skin: No rash or lesions noted MEDICAL DECISION MAKING: Chief Complaint: Chest pain External records reviewed: Reviewed prior cardiovascular testing Factors affecting care: none reported Social determinants of health: denies illicit drug use History obtained from others: none Consults: none MDM Narrative: Patient was initially hemodynamically stable, afebrile and nontoxic-appearing. Exam without focal cardiopulmonary normalities I considered the following differential diagnosis: ACS, arrhythmia, anemia, electrolyte disturbance, pneumothorax, pneumonia, PE, aortic dissection ALL IMAGES (IF OBTAINED) HAVE BEEN PERSONALLY REVIEWED AND INTERPRETED BY MYSELF. EKG with normal sinus rhythm, left axis deviation, normal intervals, QTc 429, no signs of arrhythmia, STEMI High-sensitivity troponin is negative, no evidence of myocardial ischemiax2 CBC without leukocytosis, severe anemia, no thrombocytopenia. BMP without evidence of significant electrolyte abnormalities, no anion gap, no acute kidney injury. On reevaluation the patient remained chest pain-free. The synthesis of the patient's history, physical exam, labs images suggest no acute life-limiting etiology specifically no signs of ACS. The patient's history and physical exam not consistent with dissection or PE. Her labs do not suggest anemia or electrolyte abnormalities. The cause of her presentation is unclear however it is unlikely be life-threatening. Will recommend outpatient stress test. Strict return precautions (more content not included)... Normal [facility] L501.4020on 10-20-2024 TROPONIN-I HS 8 pg/mL Normal 3.0-54.0 [facility] Comment on above: Result Comment: Win deutsch Note: New Test Units and Gender Specific Reference Ranges. For more information see Policy Stat Procedure [facility] High Sensitivity Troponin (TNIH) and attachments. Performed By: #### L 501.4020 #### [facility] [address] [place], [address] L501.5472on 10-20-2024 TROPONIN-I HS 5 pg/mL Normal 3.0-54.0 [facility] Comment on above: Order Comment: 1 Y Result Comment: Plea se Note: New Test Units and Gender Specific Reference Ranges. For more information see Policy Stat Procedure [facility] High Sensitivity Troponin (TNIH) and attachments. Performed By: #### L 100.0100, L501.5425, L500.2500 #### [facility] [address] [place], [address] 12 Lead EKGon 07-27-2024 12 Lead EKG [facility] Cardi[facility] Services [address] [place] [address] 12 Lead EKG 07/27/24 0830 MR#: [id number] Acct: [id number] Name: [place] COL[place] Rep #: [id number] : 1970 54 From: Dexter Landaverde MD Attending Dr: Dr. Marcelo Harrison, Status: REG CLI Ordering Dr: Marcelo Harrison DO Date: 07/27/24 Location: [facility] Sex: F C Admitted: Test Reason : PREOP Blood Pressure : / mmHG Vent. Rate : 070 BPM Atrial Rate : 070 BPM P-R Int : 138 ms QRS Dur : 094 ms QT Int : 380 ms P-R-T Axes : 071 -11 014 degrees QTc Int : 410 ms Normal sinus rhythm Incomplete right bundle branch block Borderline ECG Confirmed by Dexter Landaverde ([id number]), state editor NOAM MALCOLM ([id number]) on 07/27/2024 11:23:17 AM Referred By: Marcelo Harrison Confirmed By:Dexter Landaverde 07/27/24 1123 Date Dexter Landaverde MD CC: Dr. Td Vick, DO; Dr. Marcelo Harrison DO Signed Normal [facility] Basic Metabolic Profile (BMP )on 07-27-2024 BUN/CRE 8.5 RATIO Low 10-20 [facility] Comment on above: Performed By: #### L 100.0100, L500.2500 #### [facility] [address] [place], [address] CA,Total 9.2 mg/dL Normal 8.5-10.1 [facility] Comment on above: Performed By: #### L 100.0100, L500.2500 #### [facility] [address] [place], [address] Chloride [Moles/Vol] 112 mmol/L High 98-107 [facility] Comment on above: Performed By: #### L 100.0100, L500.2500 #### [facility] [address] [place], [address] CO2 [Moles/Vol] 29.0 mmol/L Normal 21.0-32.0 [facility] Comment on above: Performed By: #### L 100.0100, L500.2500 #### [facility] [address] [place], [address] Creatinine [Mass/Vol] 0.82 mg/dL Normal 0.55-1.02 [facility] Comment on above: Result Comment: The validity of the calculated GFR GFRAA in patients over 70 years has not been determined. Clinical correlation is essential. Performed By: #### L 100.0100, L500.2500 #### [facility] [address] [place], [address] EST GFR - AA 94 mL/min Normal >60 [facility] Comment on above: Result Comment: Afri can [place] GFR Calc Performed By: #### L 100.0100, L500.2500 #### [facility] [address] [place], [address] GAP 3 Low 5-15 [facility] Comment on above: Performed By: #### L 100.0100, L500.2500 #### [facility] [address] [place], [address] GFR/1.73 sq M.predicted among non-blacks MDRD (S/P/Bld) [Vol rate/Area] 78 mL/min/{1.73_m2} Normal >60 [facility] Comment on above: Result Comment: Non- GFR Calc Performed By: #### L 100.0100, L500.2500 #### [facility] [address] [place], [address] Glucose [Mass/Vol] 83 mg/dL Normal 74-106 [facility] Comment on above: Performed By: #### L 100.0100, L500.2500 #### [facility] [address] [place], [address] Potassium [Moles/Vol] 4.3 mmol/L Normal 3.5-5.1 [facility] Comment on above: Performed By: #### L 100.0100, L500.2500 #### [facility] [address] [place], [address] Sodium [Moles/Vol] 143 mmol/L Normal 136-145 [facility] Comment on above: Performed By: #### L 100.0100, L500.2500 #### [facility] [address] [place], [address] Urea nitrogen [Mass/Vol] 7 mg/dL Normal 7-18 [facility] Comment on above: Performed By: #### L 100.0100, L500.2500 #### [facility] [address] [place], [address] CBC W/Diff, Automatedon 10- Absolute Lymph 1.61 X10 3/uL Normal 0.83-4.51 [facility] Comment on above: Performed By: #### L 100.0100, L500.2500 #### [facility] [address] [place], [address] Absolute Neut 3.1 X10 3/uL Normal 2.0-7.7 [facility] Comment on above: Performed By: #### L 100.0100, L500.2500 #### [facility] [address] [place], [address] Basophils/100 WBC (Bld) 1.1 % High 0-1 [facility] Comment on above: Performed By: #### L 100.0100, L500.2500 #### [facility] [address] [place], [address] Eosinophils/100 WBC (Bld) 2.2 % Normal 0-5 [facility] Comment on above: Performed By: #### L 100.0100, L500.2500 #### [facility] [address] [place], [address] Erythrocyte distribution width (RBC) [Ratio] 12.9 % Normal 11.6-14.6 [facility] Comment on above: Performed By: #### L 100.0100, L500.2500 #### [facility] [address] [place], [address] Hematocrit (Bld) [Volume fraction] 41.9 % Normal 37-47 [facility] Comment on above: Performed By: #### L 100.0100, L500.2500 #### [facility] [address] [place], [address] Hemoglobin (Bld) [Mass/Vol] 13.6 g/dL Normal 12.0-15.0 [facility] Comment on above: Performed By: #### L 100.0100, L500.2500 #### [facility] [address] [place], [address] IG% 0.400 Normal 0.0-0.9 [facility] Comment on above: Result Comment: IG% - Immature Granulocytes (promyelocytes, myelocytes and metamyelocytes) > 1% indicates that a LEFT SHIFT is Present. Performed By: #### L 100.0100, L500.2500 #### [facility] [address] [place], [address] Lymphocytes/100 WBC (Bld) 30.1 % Normal 19-41 [facility] Comment on above: Performed By: #### L 100.0100, L500.2500 #### [facility] [address] [place], [address] MCH (RBC) [Entitic mass] 29.5 pg Normal 27.0-32.0 [facility] Comment on above: Performed By: #### L 100.0100, L500.2500 #### [facility] [address] [place], [address] MCHC (RBC) [Mass/Vol] 32.5 g/dL Normal 32-36 [facility] Comment on above: Performed By: #### L 100.0100, L500.2500 #### [facility] [address] [place], [address] MCV (RBC) [Entitic vol] 90.9 fL Normal 81-99 [facility] Comment on above: Performed By: #### L 100.0100, L500.2500 #### [facility] [address] [place], [address] Monocytes/100 WBC (Bld) 8.1 % Normal 0-10 [facility] Comment on above: Performed By: #### L 100.0100, L500.2500 #### [facility] [address] [place], [address] Neutrophils/100 WBC (Bld) 58.1 % Normal 47-70 [facility] Comment on above: Performed By: #### L 100.0100, L500.2500 #### [facility] [address] [place], [address] Nucleated RBC (Bld) [#/Vol] 0 10*3/uL Normal 0-5 [facility] Comment on above: Performed By: #### L 100.0100, L500.2500 #### [facility] [address] [place], [address] Platelet mean volume (Bld) [Entitic vol] 11.2 fL Normal 6.2-12.0 [facility] Comment on above: Performed By: #### L 100.0100, L500.2500 #### [facility] [address] [place], [address] Platelets (Bld) [#/Vol] 232 10*3/uL Normal 150-450 [facility] Comment on above: Performed By: #### L 100.0100, L500.2500 #### [facility] [address] [place], [address] RBC (Bld) [#/Vol] 4.61 10*6/uL Normal 4.2-5.4 [facility] Comment on above: Performed By: #### L 100.0100, L500.2500 #### [facility] [address] [place], [address] RDW SD 42.5 fl Normal 35.1-43.9 [facility] Comment on above: Performed By: #### L 100.0100, L500.2500 #### [facility] [address] [place], [address] WBC (Bld) [#/Vol] 5.3 10*3/uL Normal 4.4-11.0 [facility] Comment on above: Performed By: #### L 100.0100, L500.2500 #### [facility] [address] [place], [address] 25-hydroxyvitamin D3 [Mass/V ol]on 04-30-2024 Interpretation and review of laboratory results Normal [facility] CBC W Auto Differential pane l (Bld)on 04-30-2024 Basophils (Bld) [#/Vol] 0.04 10*3/uL [facility] Basophils/100 WBC (Bld) 0.7 % [facility] Differential cell count method Nom (Bld) Auto [facility] Eosinophils (Bld) [#/Vol] 0.11 10*3/uL [facility] Eosinophils/100 WBC (Bld) 2.0 % [facility] Erythrocyte distribution width (RBC) [Ratio] 12.9 % 11.5 - 15.0 % [facility] Hematocrit (Bld) [Volume fraction] 42.2 % 36.0 - 46.0 % [facility] Hemoglobin (Bld) [Mass/Vol] 13.9 g/dL 11.5 - 15.5 g/dL [facility] Immature granulocytes (Bld) [#/Vol] [facility] Immature granulocytes/100 WBC (Bld) 0.2 % [facility] Lymphocytes (Bld) [#/Vol] 1.78 10*3/uL [facility] Lymphocytes/100 WBC (Bld) 32.2 % [facility] MCH (RBC) [Entitic mass] 30.0 pg 26.0 - 34.0 pg [facility] MCHC (RBC) [Mass/Vol] 32.9 g/dL 30.5 - 36.0 g/dL [facility] MCV (RBC) [Entitic vol] 90.9 fL 80.0 - 100.0 fL [facility] Monocytes (Bld) [#/Vol] 0.47 10*3/uL [facility] Monocytes/100 WBC (Bld) 8.5 % [facility] Neutrophils (Bld) [#/Vol] 3.11 10*3/uL [facility] Neutrophils/100 WBC (Bld) 56.4 % [facility] Nucleated RBC (Bld) [#/Vol] [facility] Nucleated RBC/100 WBC (Bld) [Ratio] 0.0 % /100 WBC [facility] Platelet mean volume (Bld) [Entitic vol] 11.0 fL 9.0 - 12.7 fL [facility] Platelets (Bld) [#/Vol] 234 10*3/uL [facility] RBC (Bld) [#/Vol] 4.64 10*6/uL 3.90 - 5.2 0 m/uL [facility] WBC (Bld) [#/Vol] 5.52 10*3/uL [facility] CORTISOL, SERUMon 04-30-2024 Cortisol [Mass/Vol] 10.1 ug/dL 4.8 - 19 .5 ug/dL [facility] Comment on above: Provided reference r chau is from 6-10 AM sample collection time. Cortisol Reference Range: 6-10 AM = 4.8-19.5 ug/dL, 4-8 PM = 2.5-11.9 ug/dL Comprehensive metabolic 2000 panelon 04-30-2024 Albumin [Mass/Vol] 4.2 g/dL 3.9 - 4.9 g/dL [facility] ALP [Catalytic activity/Vol] 72 U/L 34 - 123 U/L [facility] ALT [Catalytic activity/Vol] 21 U/L 7 - 38 U/L [facility] Anion gap [Moles/Vol] 9 mmol/L 8 - 15 mmol/L [facility] AST [Catalytic activity/Vol] 27 U/L 13 - 35 U/L [facility] Bilirubin [Mass/Vol] 0.3 mg/dL 0.2 - 1 .3 mg/dL [facility] Calcium [Mass/Vol] 9.4 mg/dL 8.5 - 10. 2 mg/dL [facility] Chloride [Moles/Vol] 105 mmol/L 98 - 10 7 mmol/L [facility] CO2 [Moles/Vol] 27 mmol/L 22 - 30 mmol/L [facility] Creatinine [Mass/Vol] 0.70 mg/dL 0.58 - 0.96 mg/dL [facility] GFR/1.73 sq M.predicted among non-blacks MDRD (S/P/Bld) [Vol rate/Area] 104 mL/min/{1.73_m2} - PINF [facility] Comment on above: Estimated Glomerular Filtration Rate (eGFR) is calculated using the 2020 CKD-EPI creatinine equation. This equation utilizes serum creatinine, sex, and age as parameters. The creatinine assay has traceable calibration to isotope dilution-mass spectrometry. Refer to KDIGO guidelines for clinical interpretation. In patients with unstable renal function, e.g. those with acute kidney injury, the eGFR may not accurately reflect actual GFR. Glucose [Mass/Vol] 86 mg/dL 74 - 99 mg/dL [facility] Comment on above: The [place] Diabete s Association (ADA) provides guidance for cutoff values for fasting glucose and random glucose. The ADA defines fasting as no caloric intake for at least 8 hours. Fasting plasma glucose results between 100 to 125 mg/dL indicate increased risk for diabetes (prediabetes). Fasting plasma glucose results greater than or equal to 126 mg/dL meet the criteria for diagnosis of diabetes. In the absence of unequivocal hyperglycemia, results should be confirmed by repeat testing. In a patient with classic symptoms of hyperglycemia or hyperglycemic crisis, random plasma glucose results greater than or equal to 200 mg/dL meet the criteria for diagnosis of diabetes. Reference: Standards of Medical Care in Diabetes 2016, [place] Diabetes Association. Diabetes Care. 2016.39(Suppl 1). Interpretation and review of laboratory results Normal [facility] Potassium [Moles/Vol] 4.4 mmol/L 3.7 - 5.1 mmol/L [facility] Protein [Mass/Vol] 6.6 g/dL 6.3 - 8.0 g/dL [facility] Sodium [Moles/Vol] 141 mmol/L 136 - 144 mmol/L [facility] Urea nitrogen [Mass/Vol] 7 mg/dL 7 - 21 mg/dL [facility] HbA1c (Bld)on 04-30-2024 Average glucose Estimated from glycated hemoglobin (Bld) [Mass/Vol] 88 mg/dL [facility] Comment on above: eAG: (Estimated aver age glucose) is a calculated value from HgbA1c and is instruments sales representative of the average blood glucose level in the last 2-3 month period. HbA1c (Bld) [Mass fraction] 4.7 % 4.3 - 5.6 % [facility] Comment on above: [place] Diabetes As sociation guidelines indicate that patients with HgbA1c in the range 5.7-6.4% are at increased risk for development of diabetes, and intervention by lifestyle modification may be beneficial. HgbA1c greater or equal to 6.5% is considered diagnostic of diabetes. [facility] Lipid 1996 panelon 4 Cholesterol [Mass/Vol] 94 mg/dL NINF - 200 mg/dL [facility] Comment on above: <200 mg/dL, Desirabl e 200-239 mg/dL, Borderline high >239 mg/dL, High Cholesterol in HDL [Mass/Vol] 56 mg/dL 39 - PINF mg/dL [facility] Comment on above: 40-59 mg/dL, Accepta ble >59 mg/dL, High: Negative risk factor for coronary heart disease <40 mg/dL, Low: Positive risk factor for coronary heart disease Cholesterol in LDL [Mass/Vol] 32 mg/dL NINF - 100 mg/dL [facility] Comment on above: <100 mg/dL, Optimal 100-129 mg/dL, Near optimal/above optimal 130-159 mg/dL, Borderline high 160-189 mg/dL, High >189 mg/dL, Very high Secondary prevention optimal LDL Cholesterol levels are recommended to be < 70 mg/dL Cholesterol in LDL/Cholesterol in HDL [Mass ratio] 0.57 {ratio} NINF - 2.54 [facility] Comment on above: Reference: 1. National Cholesterol Education Program ATP III Guideline At-A-Glance Quick Desk Reference: National Heart, Lung, and Blood [place]. National Institutes of Health. 2001: NIH Publication No. 01-3305. 2. An International Atherosclerosis Society position paper: global recommendations for the management of dyslipidemia: executive summary, Atherosclerosis. 2014: 232(2):410-413. Cholesterol in VLDL [Mass/Vol] 6 mg/dL NINF - 30 mg/dL [facility] Cholesterol non HDL [Mass/Vol] 38 mg/dL NINF - 130 mg/dL [facility] Comment on above: <130 mg/dL, Optimal 130-159 mg/dL, Near optimal/above optimal 160-189 mg/dL, Borderline high 190-219 mg/dL, High >219 mg/dL, Very high Secondary prevention optimal non HDL Cholesterol levels are recommended to be <100 mg/dL Cholesterol.total/Cho lesterol in HDL [Mass ratio] 1.68 {ratio} NINF - 5.10 [facility] Fasting Time 16 hrs [facility] Triglyceride [Mass/Vol] 31 mg/dL NINF - 150 mg/dL [facility] Comment on above: <150 mg/dL, Normal 150-199 mg/dL, Borderline high 200-499 mg/dL, High >499 mg/dL, Very high No Panel Informationon 04-30 Interpretation and review of laboratory results Normal [facility] Interpretation and review of laboratory results Normal [facility] T3, FREEon 04-30-2024 Free T3 [Mass/Vol] 3.3 pg/mL 2.3 - 4.1 pg/mL [facility] T4 FREE/FREE THYROXINEon Free T4 [Mass/Vol] 1.1 ng/dL 0.9 - 1.7 ng/dL [facility] THYROID STIMULATING HORMONEo n 04-30-2024 TSH Qn 1.060 m[IU]/L [facility] VITAMIN B12on 04-30-2024 Cobalamin (Vitamin B12) [Mass/Vol] 458 pg/mL 232 - 1245 pg/mL [facility] VITAMIN D 25 HYDROXYon 04-30 25-hydroxyvitamin D3 [Mass/Vol] 57.6 ng/mL 31.0 - 80.0 ng/mL [facility] TOXICOLOGY SCREEN, ROUTINE U RINEon 04-04-2024 Amphetamines Confirm (U) [Mass/Vol] Negative Negative [facility] Comment on above: Cutoff threshold at 1000 ng/mL. Barbiturates Urine Negative Negative [facility] Comment on above: Cutoff threshold at 200 ng/mL. Benzodiazepines Urine Negative Negative [facility] Comment on above: Cutoff threshold at 200 ng/mL. Cannabinoids Screen Ql (U) Negative Negative [facility] Comment on above: Cutoff threshold at 50 ng/mL. Cocaine Ql (U) Negative Negative [facility] Comment on above: Cutoff threshold at 300 ng/mL. Ethanol (U) [Mass/Vol] mg/dL NINF - 11 mg/dL [facility] Interpretation and review of laboratory results Normal [facility] Opiates Screen Ql (U) Negative Negative [facility] Comment on above: Cutoff threshold at 300 ng/mL. oxyCODONE cutoff Screen (U) [Mass/Vol] Negative Negative [facility] Comment on above: Cutoff threshold at 100 ng/mL. Phencyclidine Ql (U) Negative Negative [facility] Comment on above: Cutoff threshold at 25 ng/mL. Immunoassay screen only. Cross reactivity with other substances can occur with immunoassay screening. Detection of any drug(s) in this urine toxicology panel is presumptive only. These tests are for medical purposes only and should not be used for compliance monitoring, legal, or forensic use. Samples should be within normal physiological conditions (e.g. pH). This assay does not include adulteration/specimen validity testing. In clinical settings, confirmatory testing is at the practitioner's discretion [1]. If clinically indicated, confirmation by high specificity, quantitative methodology, which includes adulteration/specimen validity testing, may be requested on the same specimen through Client Services ([phone]) if contacted within 48 hours of initial testing. [1]Substance Abuse and Mental Health Services Administration (2012). Clinical Drug Testing in Primary Care Technical Assistance Publication Series 32. Department of Health and Human Services, [place], p.10. [facility] SURGICAL PATHOLOGYOrdered By : Josue Moe on 09-13-2023 Case Report Surgical Pathology Report Case: [id number] Authorizing Provider: Bear Hess MD Collected: 09/09/2023 02:58 PM Ordering Location: Ambulatory Surgery Received: 09/09/2023 08:44 PM Pathologist: Josue Moe MD Specimens: A) - TERMINAL ILEUM BIOPSY, r/o inflammation B) - CECUM BIOPSY, r/o inflammation C) - ASCENDING COLON BIOPSY, r/o inflammation D) - TRANSVERSE COLON BIOPSY, r/o inflammation E) - DESCENDING COLON BIOPSY, r/o inflammation F) - SIGMOID COLON BIOPSY, r/o inflammation G) - RECTAL BIOPSY, r/o inflammation [facility] Work Phone: FINAL DIAGNOSIS n0sesGVaBHOoiQZiSOTm NFx ntwMpJRPvxFIgM1HtppvoGI gbDQ9eKH9ehKimrWCvaCGeQ GGlZmAng5gpj675fMPjj0we YBWrBmI1fJDsRRBpdMMuY62 9p2jnw1fnkaAihAH3aYiwMT BeogiwOhB0WOqjMVVuragbT Da6WGajSDTkvEA6QYVyxLGi A2BfUXYwOK0vwsn3YIA3DAx cKBDqCtV9KPVvvETuUVFvgW fnJRqmk489TMH4RqAdWJQcq yPmcMvzsX6aCsCmFSGGSnAS NSDrsL0npRQneMM7yCbuSwt jvVW6FkgveD3fYA1wA71xeD iwTq44QJhkuUZel2PeLSlsp Beelu6qTEhgY23yo5FsGiTq Fq6ssi8huBo7rL9hzJFtTRC tohPEGjGIDKN7mDqqShlqnQ Z6HncswS0wVB2eL65hf29bF qNztMAat9Zlc4i0sEYowlPv bVViaf9knVejCCEitq7xdZA kmQR0KghoGNSdrBDwORLdYS XiZ3StVIvnBsYnm1efgnvhD yubtXO9LdbnmR2lBC8tK05a b54eJkOarWBwv0Ewz6p4xSW cwlKifNDvfh8ulDoeRXRfvq 6tvLXuxLM4SgvdHJBmwRWzN WEfDHJzRI0vvoYgd7VaD91b e85sBUYmk8QadJjybUvxEYF oQGOzpG8vbLLupCIvw4PfNC lyuXjawf5uLLomH29ov6FqQ bCuZs4nko8gxMs1wT3tvUIu KUNxqeRQHpAMRZXvNI8eyP2 fOIIkdD4bQVXoiY7fb5k1VH scooWfHIJZm7wwroiuNY71M 87xWIY1vCXcPZ9vIXUpPOpv p3O1dYCkLTMil6PzETwpcUc tZHHsrujjLKVaJx7iG5mviW 9vHYMig9isroynKzawrTC8U vkkdW2gYY6yM42si69tLpQh uXFjo2Bmt3b7dTGqooBdoKQ oac3iuMuaHWNhkt1jnEHelI A4IafyVAEmwKMaALxtAWFcD 7K4fYooWuymjKI8VkvqeB1k AC4zV26dj10sMhVzmXTqu7E ip1z3yYUsqxNfhQAbtc8sfN daAEYtoy5xuLBfoPS5YcqbK UPanQXnVUnMDZMcIn51AoGp MjNccGFyfQ== [facility] Work Phone: Gross Description q9jjiSEyRBMqfTQdJXPn NFx bmwSnYWQzuUWjK3OkyhurGA ozHK5uWB8eeDxslXNerQDoR SIbHzHqt9prv221mTXdj5db EDDrMyC4xGJzUETzyJCtG00 0f4kod8bdzxSitHZ4tOcvYI OufujqLiU4TFfnDVBuqdebY Co5LAlvFKAjmKG1NXEwkOGd P8KdJCPpGK8yzeb9ZJQ3AFi zYCEtPyS3JAXyhHYwSQKmdH dzPBsea786OCE9UcVqu9iuM NGqgFWjRPZ6LWhgkADlMDMf MDAgXFxuaCBcXHQgMSBcXGZ sWZxxraS9q7yfGZQndTSxBM C8VRrqlROgIFFjSHVzKNgpT bTMZwDhMeC4AAM9CIvdKHIa WQg6TBcuQ2TGHUGtHNWsODO mFDN3ApE9WSx5ILQAMv4tUY X2JeZ1ELy9FPKlLKW9IwRyJ Vc7JUTtTOpnrrUfPIxgVnqd GSqrU84bwGJxJCmryTCehrf lfcSbFANdLQVNBc4INoGPOU wUVPIMTCDZK8DRHHieVTWpd KTsWTagRjMiTRLplDTQz1Ji VThuyJTtrqptavRjNOHkG7G kmoMwOLvaWRZsxi3wpSkjET ZpAPF3t52wqNtiU6LsKE5lW CFokehdj56deHU4vTIfbTEb MMqwekRkTFLtxcgydS6wDM0 0RVvcXP2oPPowYA0eJIBsLz DEo9FtdVi7XAU7Lf7mxVHiD JJrvsUbjkLtY8Jql8Q4jVCn XHBhclxwYXJkXHNhMzBcZXB rB6vkKFQtn1zarXemu8VkaW ToNT3ikYYtg7uxPKBtqXHcI DN2AJxfsJPcMBNpQGOnUQmb IfJPDaWzZzK7SVA9BXobKTS tCTg0XVrtZ8RQGMLkTXGfIG LjMHQkAdJ9ADi4LVWYFs4cC LA9HoT9FYbtBXcnUIG9OaOl XNs8AKEcAUfrkxLdTQwgCvj sMTfqS73lwPQhUTzuNxRyXM rmlTzaHRPiXHB5XKOoMcEtR i5cI8LSBJ4bRalPJWLCDRSu atytTXJaNCCwRpUaJIWtL4a zYjMwXHBsYWluXGZzMjAgTm X0pKOiYGVltQYqFVGteaGww 3JtYWxpbiBhcmUgdHdvIHBp CEAkjxVhFqI8EQ6xEGMcYwK jdBegt9MhMPPmN1AiC3K3jN 5aZYPsFTKmJST9LBQgKAZ6L MQyFMZngR1qPC46JCgloMCx vIXfsTO6RQFsfL3px86zEQR fg1MgdBAkDiyoEYZufTYcWW lnASNbAQYysFDMb7PpPEezE VWzM4RrN6VutlU3RXMuzmmk GcjuwLkdl9UtzHDxNUqyQOF cHJHyCAznZOLfA2KINOUnEC kbSRP0VwqdVAo3EWw5VK1CM wYbNDE5OIlkQrS1VjVnDMk5 XVjeQS2FXUWpZmQhUYg1GpQ bCXN2VhZmZNngsGWhJNgbc4 DaTqOtXMYxTUstjfO4JQDar wBpg6KjGNVdLAGnM3iiXnPq CZxbouAbNAZqERETP2IPZMz JRxCKL8hAHoGKXS4HD0tonQ SrTSOgijQzu3LsSUypiOgzY BXuAuIyySibyS3gNdZeGVFN BOPzyMWbBBPlzjUok2SzUTz pbiBhcmUgdHdvIHBpZWNlcy CxLlT1EK4iMBRvXsWuaJyyf 0VmMYIxB3AqZ2R9eX4vNGPd GSHcQOL9CVZtKtJ0SEMzMUV ktO9xTR78ZYyzlOPcrZYboF R7HTPkeW5cp53fMWWib1Vca HRlLlxwYXJccGFyZFxzYTMw ZCMajLLQu2WvQKaqMPLeT3B fL7KingV9NBNcjldiVgcbxR rhi7WunKByJOxfPCNgERAcK YnfUURyZ0IVEWTmWAspUCV6 BrlwFQj2XFf5AG7KOaJbSFG 3FPxzYlX3XLSzLJk1YYukIC 9BJHHcNnNdBZm4GfcfSRU6Y iRgFMzgpSFwLKksy4TrFgQe NCOsGIkujnA0UQFqwgCxf3E pORZrYVDhJ9puEhShPSuwul NjHNTbLNXLXU8JQeDOX9DfP 70BN00iSsjEACVDDIFrhihg ALCnPWQgBhXtCGDhK3rxTyT wXHBsYWluXGZzMjAgUmVjZW h7VQBqqP6aRp6pnMCsqX9oO KXgBIR4reDnrGhnE1JfER3q HCXctpwsr94yuZR4kOMnvET hTJaptdKgVDLbhthvaD3vVJ 88KVguFS4rXOnuCO8dMBGzF lWYs0GghRp0RYV6Uh2xfQEq AWHounAzfgEqY3Ean3I1kZI uXHBhclxwYXJkXHNhMzBcZX NuH7zmQMKvz8uquCcwk0Mlf JVvPU0ipYSff1gmQVFygGYm BMR5OFuisIYgEBRrSVEyMEv wJzSVKsHvAeG2NND9YJzxJI DjYIa2IXdpE5OZSJDaMSLdE INiHcV6LyW7SBg3NDHTQx9y QFR9PrX9YKr6BxFpJQV1QsK cQCj1IXTfPXdwgiBwTLfsHb ecVIauH58moORtVQmyTkTvQ OkpbRogMZZpQEJ3QPXqSkAt OA1aCUJVY0SJRVkHUxDRT8e SSfBGFE6GY8lokISdPDVchm Cpb5NdSYmlhPclUYVmHtHuu XbldD6lDeXvTGPQWMZnuXDx TTNnwgPsq5RfAIvrwdUvaeF gsSvvJITrRKYzcrUdNaI7NC 6iYMNbMvSetHmgi4AgONWcB 2NdX2P3aT5gKYMjACPcKLE3 QTBrEhJ1SHIdRxMnkF2bEA5 6ADuswSTxfGMluMQ4NUWtvK 5pm13sMEKdk1HgsBLvJinpH XJccGFyZFxzYTMwXGVwaWNY u0AcIJtgYYHvY5ZlP4McpzY 3TRNryxwuDwrytSjun3IgwO BcXGlkIDUxMDAyIFxcZGIgT 3XTPACgVFycLDB8KzvqJYn9 LOp9NP6WZsLuVEO6FEcfYuR 9KwCbVJh3EOgmCA1RLXZtSc LkAXz2KmE6BDV6NpAyIIqld FPyHYpfv8FgGjGtPSIoYRjn boN4XOAbnuGzq5UjSVFtKEN pW8ybYkPoLZxwfdYhXDAfZZ GLJ85GMXEaM54OL23xJwzWA FNZXHBhclxwYXJkXHNiMzBc ARDgD7arQyScPUAySQxjJUS dAhLaFyTrCDg8PXXhtM0nKi 1tzISvuT6qPNOjZK72oUZtu EeuALZyGPGejmAoZuB7JQ8l MISiZqSwvRxmn5UdXDVzZ9B qX2U8rY0iLYBvYDKicJZmCz QpxJVpPmKdV71fCGFaeKUxk Pcvw4OnsEr1fCBeMIvuXI0f BYPuXKApLHB7UT8huMPsLTR iozRsm0LiYCaomBirJQOlZt P3LHTerDQwMYB1TO5sxNnaT YK3UWyvKKFwW2AoQ2WiTTdo SPY9LMYcEeZqHHIvVR0CFcK qWWD8UqmpJBO9GaW8WXg6GY YNEkMiSpJvBMN5HzE1CEyvN Lx0NId9ENzSLzVeNNA1JpU7 OImlFzM6THfeZjShZRQoOuG pAWNnAWKcCDdjwKBvJC6cyA ffWVZjEEJqXOH5QNXexBURc 2IxMDVcZnMyMiBHLiBSRUNU QUwgQklPUFNZXHBhclxwYXJ yABXeGtJyDVSbR2lwQiIgHZ NiLWsrFFSaGdMsIwRyNUl6X ACmwC3iJw5fiAXneG6bAOTn YKA4wqNbzUOpQTYrq7ZywTC fPIEzFIbtd57juFT7iUFzcB KgIUpmivXsEHGpmupamD0nU R50SKtvUL8dAAltAE4sFGEn HaTVu5RxjJg4PQP4Me0cqTF uKSKfuuVtijKuH1Ijl9T5uD UuXHBhclxwYXJkXHBhciBHc q3kihLxgPPisY9nmPsvkfKa OHHgn2LxMERrGPEvJ4ahpdS tNH6yLYYhbQ4zHldzONGyFJ OSwIGlpOQmAZPlKcndU0sdd kOfAV9qGOIIUDS4MEX7YUav REHivZFcJSSjEbEgBWWcM0x uTYWtGOqRETMsH6RmSvVkCU VdZZYhZvPtOIL7WLVkER82N CTvxPPjIII8VF2zrNmlALGv N7UdT7EaceW1AEKaww5= [facility] Work Phone: Performing Lab d6lkeVRtGYLyfRTfUeRw MDA oCKIqz0fxMYVzeQWiImCgAe NcZnRuYmpcdWMxXGRlZmYwe 8nmo013sCMwx7lgJYVqPfX2 dSCrEEHwkCMpP907ECWwIKy iw2myq2HeJSNanTNuv6L5OC SVdsseqHu3rPcnP04le8M3L gpoI9mpNBFmCQTfE9SbGX7e ZNBcUts1EQA9PPJ3CZLdNGB yV5CbQS7oFULznNQlJFk6z4 purKasGPFtZOV5m5rpLTzbu vGvZP1uxn2adPa5g1hidgPy HZBrFSAygWFDGJWyN7FsnFx rEz4qcSy7uVlnKpgbVHJ5Ys e9HY0amv79sfa3oMqyBMYqh ocpVhI2AIjrNAXagnseLGr1 ZMrzTCWfbNO0MXDbrLZeY0M iASAsED4szfs4HRQ3GEmvVJ ByEsT6LKSlgKLtEPYetWzwP Vdlw871OOD9NhRxLO9vV0Uf v8L1xR1xhQBeBPCmxIEdXeS bNCCkma1pmNFfZZspf8BwYF G1laT3vAGkbRDgRLZaOU44V lbch9NgKqvvr0RuD42bcSN0 IKkik8vlPL0xXmQ8akXpXLm gf6vzrY9cXtD5DNobMY3tWH 0iIDSvpT3plahrMWHzFwBgi ystHWWolUbgbiWlYu7ksMjd VYE3PKspL9yidS3tEwE0NOe uT4sbxQ6zSIi6IXspxOJ3PB HjoL4uYL0qkhifi4lpUQajW QroLBHmcxN1uhE5HUPucAWe D5QojF7dNBTtDW0bxwezc9f tAFQ1DKhvDEJaEKV1FkNuVG Kuu2Qhxcm9QiHfa4TriEOrK GshZ99sn074PKNzkpWsA7zp bGFpblxwbGFpblxmMFxmczI 0XHFsXHBsYWluXGYxXGZzMj JcbGFuZzEwMzNcaGljaFxmM XwoVkPtOYByFPqsX7oxNgKg DwOfMaMKtVXdrc9zaQvyOCa hvKCzbHGfoMD6rZ1yLYVnpi Ybfs0gZFRtfAUTiWE2IPxgd dTzY1ermyhsBIKdsTW9uLJ8 NKoej4FcrGQkFVKhUZAlJXQ Pj5DdzL1jMGXmPNAMsBC0ZY evsmNmQM0DUHO5WJQgKFWaL VTPDKYdKOI5WTA4VRa6JOyk cGFyXHBhclxwYXJkXHBsYWl xWNHdCWMhFjAlwRwbvS2vYi DqRsVzFrykFO9cXSNtY5tas XSfTPBkPTMvK6sbOjEleS2d aFxmMVxjZjJcZnMyMlxsdHJ wxSFPFDTavlH4w4V8NXoslN FpblxmMVxmczIyXGxhbmcxM KCxBWkrC4smOlPyCXBywZzy EWopz0TiZEJwDVCsNaDuHHp kMCX6v6K2LZ8wiwbgCl6uZB JrEDXoZ33nWBHOEsDgEETaa n0= [facility] Work Phone: [facility] Work Phone: Flexible sigmoidoscopy study on 09-09-2023 [facility] Patient Name: Ny Colon Procedure Date: 09/09/2023 2:37 PM Date of : 1970 Admit Type: Outpatient Age: 53 Room: [place] [address] Gender: Female Note Status: Finalized Attending MD: Bear Hess MD Procedure: Colonoscopy Indications: Ulcerative colitis Providers: Bear Hess MD Patient Profile: Refer to note in patient chart for documentation of history and physical. Last Colonoscopy: 2015. Referring Physician: Selene Lindsey (pa) (Referring MD) Medicines: Monitored Anesthesia Care Complications: No immediate complications. Requesting Provider: Procedure: Pre-Anesthesia Assessment: - Prior to the procedure, a History and Physical was performed, and patient medications and allergies were reviewed. The patient's tolerance of previous anesthesia was also reviewed. The risks and benefits of the procedure and the sedation options and risks were discussed with the patient. All questions were answered, and informed consent was obtained. Prior Anticoagulants: The patient has taken no anticoagulant or antiplatelet agents. ASA Grade Assessment: See anesthesia record. After reviewing the risks and benefits, the patient was deemed in satisfactory condition to undergo the procedure. After I obtained informed consent, the scope was passed under direct vision. Throughout the procedure, the patient's blood pressure, pulse, and oxygen saturations were monitored continuously. The Colonoscope was introduced through the anus and advanced to the terminal ileum. I was present and participated during the entire procedure, including non-benitez portions, and during the administration and monitoring of Moderate Sedation. The colonoscopy was performed without difficulty. The patient tolerated the procedure well. The quality of the bowel preparation was excellent. The ileocecal valve, appendiceal orifice, and rectum were photographed. Moderate Sedation: MAC anesthesia was administered by the anesthesia team. Findings: The perianal and digital rectal examinations were normal. The colon (entire examined portion) appeared normal. Small area of nodularity noted in the descending colon, with lymphoid aggregate appearance. Segmental biopsies were taken with a cold forceps for histology. Non-bleeding internal hemorrhoids were found during retroflexion. The hemorrhoids were large. The exam was otherwise normal throughout the examined colon. The terminal ileum appeared normal. Biopsies were taken with a cold forceps for histology. Impression: - The entire examined colon is normal. Biopsied. - Non-bleeding internal hemorrhoids. - The examined portion of the ileum was normal. Biopsied. Recommendation: - Patient has a contact number available for emergencies. The signs and symptoms of potential delayed complications were discussed with the patient. Return to normal activities tomorrow. Written discharge instructions were provided to the patient. - Resume previous diet. - Continue present medications. - Repeat colonoscopy in 10 years for surveillance. - Return to referring physician as previously scheduled. - Refer to a colo-rectal surgeon at [facility]. Procedure Code(s): --- Professional --- 07797, Colonoscopy, flexible; with biopsy, single or multiple CPT copyright 2020 [employer]. All rights reserved. The codes documented in this report are preliminary and upon art handler review may be revised to meet current compliance requirements. Attending Participation: I personally performed the enti (more content not included)... [facility] Radiology Study observation (narrative) [facility] VIBRATION CONTROLLED TRANSIE NT ELASTOGRAPHY (POC)on 06-24-2023 [facility] US ABD RIGHT UPPER QUADRANTo n 06-08-2023 [facility] XR CHEST 2V FRONTAL/LATon [facility] XR Chest PA and Lateralon IMPRESSION: Stable chest. No acute cardiopulmonary process. [employer] Operator: MELVIN Transcribe Date/Time: Jun 07 2022 10:05A Dictated by : NANCY ROSAS MD This examination was interpreted and the report reviewed and electronically signed by: NANCY ROSAS MD on Jun 07 2022 10:07AM [facility] DIVISION OF RADIOLOGY * * *Final Report* * * DATE OF EXAM: Jun 07 2022 9:58AM WOX [id number] - XR CHEST 2V FRONTAL/LAT / PROCEDURE REASON: multiple diagnoses * * * * Physician Interpretation * * * * EXAMINATION: CHEST RADIOGRAPH (2 VIEW FRONTAL & LATERAL) CLINICAL HISTORY: Chest tightness. Persistent cough. Post-Covid. MQ: XC2_6 EXAM DATE/TIME: 06/07/2022 9:58 AM COMPARISON: Comparison is made to prior 2 view chest dated 01 December 2018 RESULT: Lines, tubes, and devices: None. Lungs and pleura: There is no focal consolidation or acute pleural process/fluid. There is no vascular redistribution to suggest pulmonary edema. Cardiomediastinal silhouette: The cardiac, mediastinal and hilar shadows are unchanged and remain within normal limits. Bones/soft tissues: The bony structures are intact with mild degenerative change. No bony destructive process noted. DIVISION OF RADIOLOGY Provider, [facility] - 06/07/2022 * * *Final Report* * * DATE OF EXAM: Jun 07 2022 9:58AM WOX [id number] - XR CHEST 2V FRONTAL/LAT / PROCEDURE REASON: multiple diagnoses * * * * Physician Interpretation * * * * EXAMINATION: CHEST RADIOGRAPH (2 VIEW FRONTAL & LATERAL) CLINICAL HISTORY: Chest tightness. Persistent cough. Post-Covid. MQ: XC2_6 EXAM DATE/TIME: 06/07/2022 9:58 AM COMPARISON: Comparison is made to prior 2 view chest dated 01 December 2018 RESULT: Lines, tubes, and devices: None. Lungs and pleura: There is no focal consolidation or acute pleural process/fluid. There is no vascular redistribution to suggest pulmonary edema. Cardiomediastinal silhouette: The cardiac, mediastinal and hilar shadows are unchanged and remain within normal limits. Bones/soft tissues: The bony structures are intact with mild degenerative change. No bony destructive process noted. IMPRESSION IMPRESSION: Stable chest. No acute cardiopulmonary process. [employer] Operator: PSCB Transcribe Date/Time: Jun 07 2022 10:05A Dictated by : NANCY ROSAS MD This examination was interpreted and the report reviewed and electronically signed by: NANCY ROSAS MD on Jun 07 2022 10:07AM EST [facility] Radiology Study observation (narrative) [facility] XR Chest PA and LateralOrder ed By: [facility] Provider on 06-07-2022 [facility] US THYROID/PARATHYROIDon [facility] DDI VIBRATION CONTROLLED TRA NSIENT ELASTOGRAPHY (VCTE) [facility] Vital Signs Date Time Vital Sign Value Performing Clinician Faci lity 05-29-2025 09:09-0400 Body height 166.5 cm Td Vick DO Work Phone: [facility] 05-29-2025 09:09-0400 Body mass index (BMI) [Ratio] 26.34 kg/m2 Td Vick DO Work Phone: [facility] 05-29-2025 09:09-0400 Body temperature 97.7 [degF] Td Vick DO Work Phone: [facility] 05-29-2025 09:09-0400 Body weight 73.03 kg Td Vick DO Work Phone: [facility] 05-29-2025 09:09-0400 Diastolic blood pressure 70 mm[Hg] Td Vick DO Work Phone: [facility] 05-29-2025 09:09-0400 Heart rate 80 /min Td Vick DO Work Phone: [facility] 05-29-2025 09:09-0400 Respiratory rate 12 /min Td Vick DO Work Phone: [facility] 05-29-2025 09:09-0400 Systolic blood pressure 110 mm[Hg] Td Vick DO Work Phone: [facility] 04-15-2025 08:27-0400 Body height 167.6 cm Sailaja Real MD Work Phone: [facility] 04-15-2025 08:27-0400 Body mass index (BMI) [Ratio] 26.57 kg/m2 Sailaja Real MD Work Phone: [facility] 04-15-2025 08:27-0400 Body temperature 97.2 [degF] Sailaja Real MD Work Phone: [facility] 04-15-2025 08:27-0400 Body weight 74.66 kg Sailaja Real MD Work Phone: [facility] 04-15-2025 08:27-0400 Diastolic blood pressure 82 mm[Hg] Sailaja Real MD Work Phone: [facility] 04-15-2025 08:27-0400 Heart rate 100 /min Sailaja Real MD Work Phone: [facility] 04-15-2025 08:27-0400 SaO2% (BldA) [Mass fraction] 98 % Sailaja Real MD Work Phone: [facility] 04-15-2025 08:27-0400 Systolic blood pressure 118 mm[Hg] Sailaja Real MD Work Phone: [facility] 04-30-2024 08:03-0400 Body height 166.5 cm Td Vick DO Work Phone: [facility] 04-30-2024 08:03-0400 Body mass index (BMI) [Ratio] 24.54 kg/m2 Td Vick DO Work Phone: [facility] 04-30-2024 08:03-0400 Body temperature 97 [degF] Td Vick DO Work Phone: [facility] 04-30-2024 08:03-0400 Body weight 68.04 kg Td Vick DO Work Phone: [facility] 04-30-2024 08:03-0400 Diastolic blood pressure 78 mm[Hg] Td Vick DO Work Phone: [facility] 04-30-2024 08:03-0400 Heart rate 80 /min Td Vick DO Work Phone: [facility] 04-30-2024 08:03-0400 Respiratory rate 16 /min Td Vick DO Work Phone: [facility] 04-30-2024 08:03-0400 Systolic blood pressure 110 mm[Hg] Td Vick DO Work Phone: [facility] 04-04-2024 09:03-0400 Body mass index (BMI) [Ratio] 24.93 kg/m2 Milton Camacho APRN.VIDEO GAME ENGINEER Work Phone: [facility] 04-04-2024 09:03-0400 Body weight 67.95 kg Milton Keri STUNNER ANIMAL.VIDEO GAME ENGINEER Work Phone: [facility] 04-04-2024 09:03-0400 Diastolic blood pressure 82 mm[Hg] Milton Keri STUNNER ANIMAL.VIDEO GAME ENGINEER Work Phone: [facility] 04-04-2024 09:03-0400 Heart rate 96 /min Milton Keri STUNNER ANIMAL.VIDEO GAME ENGINEER Work Phone: [facility] 04-04-2024 09:03-0400 Respiratory rate 16 /min Milton Keri STUNNER ANIMAL.VIDEO GAME ENGINEER Work Phone: [facility] 04-04-2024 09:03-0400 SaO2% (BldA) [Mass fraction] 95 % Milton Keri STUNNER ANIMAL.VIDEO GAME ENGINEER Work Phone: [facility] 04-04-2024 09:03-0400 Systolic blood pressure 120 mm[Hg] Milton Keri STUNNER ANIMAL.VIDEO GAME ENGINEER Work Phone: [facility] 09-15-2023 09:40-0500 Body temperature 98.49 [degF] Maite Podlogar STUNNER ANIMAL.VIDEO GAME ENGINEER Work Phone: [facility] 09-15-2023 09:40-0500 Body weight 72.85 kg Maite Podlogar STUNNER ANIMAL.VIDEO GAME ENGINEER Work Phone: [facility] 09-15-2023 09:40-0500 Diastolic blood pressure 86 mm[Hg] Maite Podlogar STUNNER ANIMAL.VIDEO GAME ENGINEER Work Phone: [facility] 09-15-2023 09:40-0500 Heart rate 97 /min Maite Podlogar STUNNER ANIMAL.VIDEO GAME ENGINEER Work Phone: [facility] 09-15-2023 09:40-0500 Respiratory rate 16 /min Maite Podlogar STUNNER ANIMAL.VIDEO GAME ENGINEER Work Phone: [facility] 09-15-2023 09:40-0500 SaO2% (BldA) [Mass fraction] 99 % Maite Podlogar STUNNER ANIMAL.VIDEO GAME ENGINEER Work Phone: [facility] 09-15-2023 09:40-0500 Systolic blood pressure 110 mm[Hg] Maite Villa APRN.CNP Work Phone: [facility] 09-09-2023 15:29-0500 Diastolic blood pressure 88 mm[Hg] Bear Hess MD Work Phone: [facility] 09-09-2023 15:29-0500 Heart rate 90 /min Bear Hess MD Work Phone: [facility] 09-09-2023 15:29-0500 Respiratory rate 16 /min Bear Hess MD Work Phone: [facility] 09-09-2023 15:29-0500 SaO2% (BldA) [Mass fraction] 98 % Bear Hess MD Work Phone: [facility] 09-09-2023 15:29-0500 Systolic blood pressure 118 mm[Hg] Bear Hess MD Work Phone: [facility] 09-09-2023 15:11-0500 Body temperature 97.2 [degF] Bear Hess MD Work Phone: [facility] 09-09-2023 14:17-0500 Body height 165.1 cm Bear Hess MD Work Phone: [facility] 09-09-2023 14:17-0500 Body mass index (BMI) [Ratio] 26.13 kg/m2 Bear Hess MD Work Phone: [facility] 09-09-2023 14:17-0500 Body weight 71.22 kg Bear Hess MD Work Phone: [facility] 08-18-2023 10:06-0500 Body height 167 cm Selene Lindsey PA-C Work Phone: [facility] 08-18-2023 10:06-0500 Body weight 71.26 kg Selene MARTIN-C Work Phone: [facility] 08-18-2023 10:06-0500 Diastolic blood pressure 74 mm[Hg] Selene Kalka PA-C Work Phone: [facility] 08-18-2023 10:06-0500 Heart rate 60 /min Selene Kalka PA-C Work Phone: [facility] 08-18-2023 10:06-0500 Systolic blood pressure 116 mm[Hg] Selene Kalka PA-C Work Phone: [facility] 12-22-2022 10:09-0400 Body height 167 cm Francy Wong STUNNER ANIMAL.CNM Work Phone: [facility] 12-22-2022 10:09-0400 Body weight 77.47 kg Francy Wong STUNNER ANIMAL.CNM Work Phone: [facility] 12-22-2022 10:09-0400 Diastolic blood pressure 72 mm[Hg] Francy Wong STUNNER ANIMAL.CNM Work Phone: [facility] 12-22-2022 10:09-0400 Systolic blood pressure 110 mm[Hg] Francy Wong STUNNER ANIMAL.CNM Work Phone: [facility] 11-29-2022 14:40-0500 Body temperature 99.1 [degF] Krislyn Aberegg PA Work Phone: [facility] 11-29-2022 14:40-0500 Body weight 78.2 kg Krislyn Aberegg PA Work Phone: [facility] 11-29-2022 14:40-0500 Diastolic blood pressure 86 mm[Hg] Krislyn Aberegg PA Work Phone: [facility] 11-29-2022 14:40-0500 Heart rate 96 /min Krislyn Aberegg PA Work Phone: [facility] 11-29-2022 14:40-0500 Respiratory rate 18 /min Krislyn Aberegg PA Work Phone: [facility] 11-29-2022 14:40-0500 SaO2% (BldA) [Mass fraction] 98 % Kaelkristine eregg PA Work Phone: [facility] 11-29-2022 14:40-0500 Systolic blood pressure 130 mm[Hg] Darenconcepción Aberegg PA Work Phone: [facility] 06-21-2022 08:45-0400 Body height 167.6 cm Respiratory Wstr Work Phone: [facility] 06-21-2022 08:45-0400 Body weight 78.06 kg Respiratory Wstr Work Phone: [facility] 06-21-2022 08:45-0400 Heart rate 89 /min Respiratory Wstr Work Phone: [facility] 06-21-2022 08:45-0400 Respiratory rate 12 /min Respiratory Wstr Work Phone: [facility] 06-21-2022 08:45-0400 SaO2% (BldA) [Mass fraction] 96 % Respiratory Wstr Work Phone: [facility] 04-21-2022 07:42-0400 Body height 166.5 cm Td Vick DO Work Phone: [facility] 04-21-2022 07:42-0400 Body temperature 98.1 [degF] Td Vick DO Work Phone: [facility] 04-21-2022 07:42-0400 Body weight 75.75 kg Td Vick DO Work Phone: [facility] 04-21-2022 07:42-0400 Diastolic blood pressure 60 mm[Hg] Td Vick DO Work Phone: [facility] 04-21-2022 07:42-0400 Heart rate 80 /min Td Vick DO Work Phone: [facility] 04-21-2022 07:42-0400 Respiratory rate 16 /min Td Vick DO Work Phone: [facility] 04-21-2022 07:42-0400 Systolic blood pressure 100 mm[Hg] Td Vick DO Work Phone: [facility] 03-28-2022 14:41-0400 Body temperature 98.6 [degF] Ana Praisler-Wood STUNNER ANIMAL.VIDEO GAME ENGINEER Work Phone: [facility] 03-28-2022 14:41-0400 Body weight 75.12 kg Ana Praisler-Wood STUNNER ANIMAL.VIDEO GAME ENGINEER Work Phone: [facility] 03-28-2022 14:41-0400 Diastolic blood pressure 74 mm[Hg] Ana Praisler-Wood STUNNER ANIMAL.VIDEO GAME ENGINEER Work Phone: [facility] 03-28-2022 14:41-0400 Heart rate 91 /min Ana Praisler-Wood STUNNER ANIMAL.VIDEO GAME ENGINEER Work Phone: [facility] 03-28-2022 14:41-0400 Respiratory rate 16 /min Ana Praisler-Wood STUNNER ANIMAL.VIDEO GAME ENGINEER Work Phone: [facility] 03-28-2022 14:41-0400 SaO2% (BldA) [Mass fraction] 99 % Ana Praisler-Wood STUNNER ANIMAL.VIDEO GAME ENGINEER Work Phone: [facility] 03-28-2022 14:41-0400 Systolic blood pressure 120 mm[Hg] Ana Praisler-Wood STUNNER ANIMAL.VIDEO GAME ENGINEER Work Phone: [facility] Encounters Encounter Date Encounter Type Care Provider Facility Start: 06-19-2025 ambulatory Td Vick Facilit y:[facility] Start: 06-18-2025 End: 06-18-2025 Telephone encounter Td Vick DO Work Phone: [facility] Comment on above: Medication Request Start: 06-13-2025 End: 06-14-2025 ambulatory Td Vick DO Work Phone: [facility] Comment on above: CT of lungs denial b y insurance resubmission Start: 06-12-2025 ambulatory TD VICK Facil ity:[facility] Start: 06-12-2025 End: 06-12-2025 Subsequent hospital visit by physician Screen [facility] Comment on above: Encounter for screen ing mammogram for breast cancer [Z12.31] Start: 06-07-2025 End: 06-07-2025 Telemedicine consultation with patient Selene César GARRETT Work Phone: [facility] Start: 06-07-2025 End: 06-07-2025 ambulatory Selene César GARRETT Work Phone: [facility] Comment on above: Fatty liver (Primary Dx); Internal hemorrhoids; Chronic cough Start: 05-31-2025 End: 05-31-2025 Telephone encounter Td Dawson Vick DO Work Phone: [facility] Start: 05-30-2025 End: 05-30-2025 ambulatory TD EDDYON Facility:[facility] Start: 05-29-2025 End: 05-29-2025 ambulatory TD VICK Facility:[facility] Start: 05-29-2025 Encounter for genera l adult medical examination without abnormal findings TD VICK [facility] Start: 05-29-2025 End: 05-29-2025 Patient encounter procedure Td Eddyon DO Work Phone: [facility] Comment on above: Well adult exam (Ariella kim Dx); Palpitations; RBBB; Chronic cough; Encounter for screening for cardiovascular disorders; Family history of aortic aneurysm; Butterfly rash; Dyslipidemia Start: 05-29-2025 End: 05-29-2025 Patient encounter status Td Eddyon DO Work Phone: [facility] Start: 05-29-2025 End: 05-29-2025 ambulatory TD VICK Facility:[facility] Start: 05-16-2025 End: 05-16-2025 ambulatory SELENE CÉSAR Facility:[facility] Start: 04-23-2025 End: 04-23-2025 Patient encounter procedure Roland Kim MD Work Phone: General Surgery Comment on above: Multinodular goiter (Primary Dx) Start: 04-23-2025 End: 04-23-2025 ambulatory ROLAND KIM Facility:[facility] Start: 04-15-2025 End: 04-15-2025 Patient encounter procedure Sailaja Real MD Work Phone: General Surgery Comment on above: Abnormal ultrasound of thyroid gland Start: 04-15-2025 End: 04-15-2025 ambulatory SAILAJA REAL Facility:[facility] Start: 04-03-2025 End: 04-03-2025 Telephone encounter Td Eunice LearyVick DO Work Phone: [facility] Comment on above: Results Start: 04-01-2025 ambulatory TD L VICK Facil ity:[facility] Start: 04-01-2025 End: 04-01-2025 Subsequent hospital visit by physician [facility] Work Phone: Radiology Comment on above: Multiple thyroid nod ules [E04.2] Start: 03-26-2025 End: 03-27-2025 ambulatory Td L Vick DO Work Phone: [facility] Comment on above: Repeat thyroid ultrs ound Start: 12-25-2024 End: 01-25-2025 ambulatory Td L Vick DO Work Phone: [facility] Start: 10-20-2024 End: 10-20-2024 Emergency department patient visit Td Vick Facility:[facility] Start: 08-20-2024 Encounter for other preprocedural examination Marcelo Harrison [facility] Start: 07-27-2024 End: 07-27-2024 ambulatory Td Vick [place] Start: 07-27-2024 End: 07-27-2024 ambulatory Td Vick Facility:[facility] Start: 06-01-2024 End: 06-01-2024 ambulatory Seleneroni Lindsey PA-C Work Phone: [facility] Comment on above: Fatty liver (Primary Dx) Start: 06-01-2024 End: 06-01-2024 Telemedicine consultation with patient Selene César GARRETT Work Phone: [facility] Start: 04-30-2024 End: 04-30-2024 Patient encounter procedure Td Vick DO Work Phone: Family Medicine [place] Comment on above: Well adult exam (Ariella kim Dx); Situational anxiety; Vitamin D deficiency; Attention deficit disorder (ADD) in adult; Elevated LFTs Start: 04-30-2024 End: 04-30-2024 Patient encounter status Td Vick DO Work Phone: [facility] Start: 04-04-2024 End: 04-04-2024 Patient encounter procedure Milton Camacho STUNNER ANIMAL.VIDEO GAME ENGINEER Work Phone: Family Medicine [place] Comment on above: Attention deficit di sorder (ADD) in adult (Primary Dx) Start: 04-01-2024 Get Medical Advice Td Vick DO Work Phone: Family [place] Comment on above: Medication refill no t on my medication list Start: 01-25-2024 ambulatory Td sharma DO Work Phone: Internal Medicine [facility] Start: 12-02-2023 End: 12-02-2023 ambulatory Selene César GARRETT Work Phone: Gastroenterology [place] Comment on above: Fatty liver (Primary Dx) Start: 12-02-2023 End: 12-02-2023 Telemedicine consultation with patient Selene Johndulce MARTIN-Maureen Work Phone: [facility] Start: 09-15-2023 End: 09-15-2023 Patient encounter procedure Maite Villa STUNNER ANIMAL.VIDEO GAME ENGINEER Work Phone: Family [place] Comment on above: Upper respiratory in fection, viral (Primary Dx) Start: 09-09-2023 End: 09-09-2023 Subsequent hospital visit by physician Bear Hess MD Work Phone: Ambulatory Surgery Comment on above: History of proctitis [Z87.19] Start: 08-31-2023 ambulatory Bear damon MD Work Phone: Ambulatory Surgery Start: 08-26-2023 End: 08-26-2023 ambulatory Immunization Clinic Nurse [place] Work Phone: [facility] [place] Start: 08-18-2023 End: 08-18-2023 Patient encounter procedure Selene Lindsey PA-C Work Phone: Gastroenterology [place] Comment on above: Fatty liver (Primary Dx); Other constipation; History of proctitis Start: 06-27-2023 Telephone encounter Ny sharma STUNNER ANIMAL.VIDEO GAME ENGINEER Work Phone: Family [facility] [place] Comment on above: Results Start: 06-24-2023 End: 06-24-2023 Orders Only Ny Leblanc STUNNER ANIMAL.VIDEO GAME ENGINEER Work Phone: Gastroenterology Comment on above: Fatty liver (Primary Dx) Start: 06-10-2023 ambulatory Td sharma DO Work Phone: [facility] [place] Comment on above: Test result question Gastro MD Start: 06-10-2023 E-mail encounter fro m caregiver [facility] [place] Start: 06-10-2023 Telephone encounter Td yao DO Work Phone: Family Medicine [place] Comment on above: Patient Question Start: 06-08-2023 Telephone encounter Td Ha arrison DO Work Phone: [facility] [place] Comment on above: Results Start: 06-08-2023 End: 06-08-2023 Subsequent hospital visit by physician [facility] Work Phone: Radiology Comment on above: Elevated LFTs [R79.8 9] Start: 05-30-2023 Telephone encounter Td yao DO Work Phone: [facility] [place] Comment on above: Results Start: 05-04-2023 Telephone encounter Td Ha arrison DO Work Phone: [facility] [place] Comment on above: Patient Question Start: 12-24-2022 ambulatory Td sharma DO Work Phone: [facility] [place] Comment on above: Bone density Start: 12-22-2022 Documentation procedure Mammog carmela Coordinator [facility] Start: 12-22-2022 Letter encounter Mammography Coordinator [facility] Department Start: 12-22-2022 Telephone encounter Td yao DO Work Phone: Family Medicine [place] Comment on above: Results Start: 12-22-2022 End: 12-22-2022 Patient encounter procedure Francy Wong APRN.CNM Work Phone: OB/Gynecology Comment on above: Encounter for gyneco logical examination (general) (routine) without abnormal findings (Primary Dx); Encounter for screening for human papillomavirus (HPV); Pap smear for cervical cancer screening; Encounter for screening mammogram for breast cancer; Cervical polyp; Postmenopausal state Start: 12-22-2022 End: 12-22-2022 Patient encounter status Francy Wong APRN.CNM Work Phone: OB/Gynecology Start: 12-15-2022 ambulatory Td Learybrandee zachary DO Work Phone: Internal [facility] [place] Start: 11-29-2022 End: 11-29-2022 Patient encounter procedure Danica Reza PA Work Phone: [facility] Comment on above: Acute otitis media, right (Primary Dx) Start: 11-29-2022 Telephone encounter Td yao DO Work Phone: Family [facility] [place] Comment on above: Right ear drainage Start: 06-30-2022 Refill Ny Esau k STUNNER ANIMAL.VIDEO GAME ENGINEER Work Phone: Family Medicine [place] Comment on above: Refill Request Extra medicine Start: 06-21-2022 End: 06-21-2022 ambulatory Respiratory Therapist [facility] Work Phone: Pulmonary Medicine Comment on above: Spirometry Start: 06-21-2022 End: 06-21-2022 Patient encounter procedure Respiratory Therapist [facility] Work Phone: [place] [facility] Start: 06-07-2022 End: 06-07-2022 Subsequent hospital visit by physician [facility] [place] Work Phone: Radiology Comment on above: Chest tightness [R07 .89] Start: 06-07-2022 End: 06-07-2022 ambulatory Milton Camacho APRN.VIDEO GAME ENGINEER Work Phone: [facility] [place] Comment on above: Chest tightness (Ariella alvarez Dx); Persistent cough; Post-COVID chronic cough Start: 06-07-2022 End: 06-07-2022 Telemedicine consultation with patient Milton Camacho APRN.VIDEO GAME ENGINEER Work Phone: [facility] [place] Start: 05-24-2022 Refill Td sharma DO Work Phone: [facility] [place] Comment on above: Refill Request Start: 04-23-2022 End: 04-23-2022 Subsequent hospital visit by physician [facility] Work Phone: Radiology Comment on above: Thyromegaly [E01.0] Start: 04-21-2022 End: 04-21-2022 Patient encounter procedure Td Vick DO Work Phone: [facility] [place] Comment on above: Well adult exam (Ariella alvarez Dx); Perimenopausal; Fatigue, unspecified type; Attention deficit disorder (ADD) without hyperactivity; GIBSON (generalized anxiety disorder); Situational insomnia; Screening for osteoporosis; Thyromegaly Start: 04-21-2022 End: 04-21-2022 Patient encounter status Td Vick DO Work Phone: [facility] [place] Start: 03-28-2022 End: 03-28-2022 Patient encounter procedure Ana Mcdaniels APRN.VIDEO GAME ENGINEER Work Phone: [place] [facility] Comment on above: Acute sinusitis, rec urrence not specified, unspecified location (Primary Dx) Start: 11-29-2008 End: 07-24-2012 Patient encounter status Td Vick DO Work Phone: [facility] Procedures Date Procedure Procedure Detail Performing Clinician Start: 05-29-2025 Lipid 1995 panel - S shruthi or Plasma Td Vick DO Work Phone: Start: 04-23-2025 THYROID BIOPSY RI GHT (POC) SURG USE ONLY Roland Kim MD Work Phone: Start: 04-30-2024 Lipid 1996 panel - S shruthi or Plasma Td Eddyon DO Work Phone: Start: 09-09-2023 Level iv surg pathol ogy gross&microscopic exam Bear Hess MD Work Phone: Start: 09-09-2023 Colonoscopy flx dx w /collj spec when pfrmd Selene Lindsey PA-C Work Phone: Start: 09-09-2023 Colonoscopy Maite montemayor STUNNER ANIMAL.VIDEO GAME ENGINEER Work Phone: Start: 08-26-2023 INFLUENZA VACCINE, A GE 6 MO - 64 YR, QUADRIVALENT (AFLURIA, FLULAVAL, FLUZONE) James Isaacs MD Work Phone: Start: 06-26-2023 Liver elastography w /o imag w/i&r Ny Leblanc STUNNER ANIMAL.VIDEO GAME ENGINEER Work Phone: Start: 06-24-2023 Liver elastography w /o imag w/i&r Ny Leblanc STUNNER ANIMAL.VIDEO GAME ENGINEER Work Phone: Start: 06-08-2023 Us abdominal real ti me w/image limited Td Vick DO Work Phone: Start: 04-29-2023 Lipid 1996 panel - S shruthi or Plasma Ny Leblanc STUNNER ANIMAL.VIDEO GAME ENGINEER Work Phone: Start: 12-22-2022 Mammography Mammograph y Coordinator Start: 06-21-2022 Brncdilat rspse spmt ry pre&post-brncdilat admn Milton Camacho STUNNER ANIMAL.VIDEO GAME ENGINEER Work Phone: Start: 06-07-2022 Radiologic exam ches t 2 views Milton Camacho STUNNER ANIMAL.VIDEO GAME ENGINEER Work Phone: Start: 04-23-2022 Us soft tissue head & neck real time imge docm Td Vick DO Work Phone: Start: 04-21-2022 Adult depression scr eening assessment Td Vick DO Work Phone: Start: 11-09-2021 Mammography Anajulio cesar Santos APRN.JATIN Work Phone: Start: 04-15-2021 Adult depression scr eening assessment Ana Mcdaniels APRN.JATIN Work Phone: Start: 05-11-2016 Colonoscopy Ana Santos APRN.JATIN Work Phone: Plan of Treatment Date Care Activity Detail Author Start: 09-09-2033 Screening for malignant neoplasm of colon [facility] Start: 05-29-2030 Lipid panel Lipid Screening [facility] Start: 04-30-2029 Lipid panel Lipid Screening [facility] Start: 09-09-2028 Colonoscopy Colonoscopy [facility] Start: 09-09-2028 Colorectal Cancer Screening Colorectal Cancer Screening [facility] Start: 05-29-2028 Diabetes Screening Diabetes Screening [facility] Start: 04-29-2028 Lipid 1996 panel - Serum or Plasma Lipid Screening [facility] Start: 04-29-2028 Lipid panel Lipid Screening [facility] Start: 04-29-2028 LIPID SCREEN LIPID SCREEN [facility] Start: 12-23-2027 HPV TESTING HPV TESTING [facility] Start: 12-23-2027 PAP TESTING PAP TESTING [facility] Start: 12-23-2027 Screening for malignant neoplasm of cervix [facility] Start: 07-04-2027 Urine microalbumin profile [facility] Start: 04-30-2027 Diabetes Screening Diabetes Screening [facility] Start: 04-21-2027 LIPID SCREEN LIPID SCREEN [facility] Start: 06-13-2026 End: 06-13-2026 Follow-up encounter 06/13/2026 9:30 AM EDT [facility] [place] [address] [address] Selene Lindsey PA-C [facility] [facility] [place] [address] 1 Year Follow Up [facility] [place] Comment on above: 1 Year Follow Up Start: 06-12-2026 Screening for malignant neoplasm of breast Mammogram Screening [facility] Start: 05-30-2026 End: 05-30-2026 Patient encounter procedure 05/30/2026 9:00 AM EDT Office Visit [facility] [place] [address] [place] [address] Td Vick DO [address] [place] [address] yearly [facility] [place] Comment on above: yearly Start: 04-29-2026 DIABETES SCREEN DIABETES SCREEN [facility] Start: 04-29-2026 Diabetes Screening Diabetes Screening [facility] Start: 04-23-2026 LIPID SCREEN LIPID SCREEN [facility] Start: 08-05-2025 End: 08-05-2025 Nursing evaluation of patient and report 08/05/2025 2:40 PM EDT Nurse Visit Cardiology [address] [place] [address] EXERCISE STRESS ECG (WITHOUT IMAGING) Cardiology Comment on above: EXERCISE STRESS ECG (WITHOUT IMAGING) Start: 07-16-2025 End: 07-16-2025 Patient encounter procedure 07/16/2025 7:30 AM EDT Appointment Ambulatory Surgery [address] [place] [address] Sailaja Real MD [address] [place] [phone] Ambulatory Surgery Start: 06-21-2025 End: 06-21-2025 Patient encounter procedure 06/21/2025 1:40 PM EDT Appointment Cat Scan [address] [place] [address] CT CHEST WO IVCON Cat Scan Comment on above: CT CHEST WO IVCON Start: 06-12-2025 End: 06-12-2025 Patient encounter procedure 06/12/2025 11:30 AM EDT Appointment Mammogram [address] [place] [address] Mammogram Start: 06-10-2025 Influenza vaccination [facility] Start: 06-07-2025 End: 06-07-2025 Follow-up encounter [facility] [place] Comment on above: 1 year follow up office visit, fatty arline er Start: 06-05-2025 End: 06-05-2025 Patient encounter procedure 06/05/2025 10:20 AM EDT Appointment Cat Scan [address] [place] [address] CT CHEST WO IVCON Cat Scan Comment on above: CT CHEST WO IVCON Start: 05-30-2025 End: 05-30-2025 Patient encounter procedure 05/30/2025 9:40 AM EDT Office Visit Cardiology [address] [place] [address] ECHO Cardiology Comment on above: ECHO Start: 05-29-2025 End: 08-28-2025 JARRELL BY IFA WITH REFLEX [facility] Work Phone: Comment on above: Expected: 05/29/2025, Expires: Start: 05-29-2025 End: 05-29-2025 Patient encounter procedure 05/29/2025 9:00 AM EDT Office Visit [facility] [place] [address] [facility] [place] [address] Td Vick DO [address] [facility] [place] [address] Yearly physical Family Medicine [place] Comment on above: Yearly physical Start: 05-16-2025 End: 05-16-2025 ambulatory 05/16/2025 11:00 AM EDT Procedure Gastroenterology [address] [place] [address] Fatty liver [K76.0] Gastroenterology Comment on above: Fatty liver [K76.0] Start: 05-14-2025 End: 05-14-2025 Patient encounter procedure 05/14/2025 9:15 AM EDT Office Visit General Surgery [address] [place] [address] Roland Kim MD [address] [place] [address] 2 wk path f/u General Surgery Comment on above: 2 wk path f/u Start: 04-23-2025 End: 04-23-2025 Patient encounter procedure 04/23/2025 10:30 AM EDT Office Visit General Surgery [address] [place], [place] [id number] Roland Kim MD [address] [place] [address] right thyroid nodule surg fna 30 General Surgery Comment on above: right thyroid nodule surg fna 30 Start: 04-21-2025 DIABETES SCREEN DIABETES SCREEN [facility] Start: 04-08-2025 End: 04-08-2025 Patient encounter procedure 04/08/2025 3:30 PM EDT Office Visit General Surgery [address] [place] [id number] Sailaja Real MD [address] [place] [id number] Right thyroid nodule [E04.1] General Surgery Comment on above: Right thyroid nodule [E04.1] Start: 06-10-2024 Covid-19 Vaccine ( season) Covid-19 Vaccine ( season) [facility] Start: 06-10-2024 Covid-19 Vaccine ( season) Covid-19 Vaccine ( season) [facility] Start: 06-10-2024 Influenza vaccination Influenza Vaccine (#1) [facility] Start: 06-01-2024 End: 06-01-2024 Follow-up encounter 06/01/2024 9:30 AM EDT [facility] [place] [address] [facility] [phone] Selene Lindsey PA-C [address] [place] [address] 6 month follow up office visit, fatty liver [facility] [place] Comment on above: 6 month follow up office visit, fatty li rell Start: 04-30-2024 End: 04-30-2024 Patient encounter procedure 04/30/2024 8:00 AM EDT Office Visit Family Medicine [place] [address] [facility] [place] [address] Td Vick DO [address] [facility] [place] [address] annual exam [facility] [place] Comment on above: annual exam Start: 04-23-2024 DIABETES SCREEN DIABETES SCREEN [facility] Start: 04-04-2024 End: 07-04-2024 PAIN PANEL, UR QUANT [facility] Work Phone: Comment on above: Expected: 04/04/2024, Expires: Start: 04-04-2024 End: 04-04-2024 Patient encounter procedure 04/04/2024 9:00 AM EDT Office Visit Family Medicine [place] [address] [facility] [place] [address] Milton Camacho APRN.VIDEO GAME ENGINEER [address] [facility] [place] [address] Medication refill [facility] [place] Comment on above: Medication refill Start: 12-23-2023 End: 01-21-2024 BALDEMAR SCREENING W GIOVANY BALDEMAR SCREENING [facility] Radiology Routine Encounter for screening mammogram for breast cancer Expected: 12/23/2023 (Approximate), Expires: 01/21/2024 [facility] Work Phone: Comment on above: Expected: 12/23/2023 (Approximate), Expi res: 01/21/2024 Start: 12-23-2023 Mammography [facility] Start: 12-23-2023 Screening for malignant neoplasm of breast Mammogram Screening [facility] Start: 10-10-2023 Behavioral Health Screening Behavioral Health Screening [facility] Start: 10-10-2023 Depression Assessment Depression Assessment [facility] Start: 08-18-2023 End: 11-17-2023 Ferritin [Mass/volume] in Serum or Plasma [facility] Work Phone: Comment on above: Expected: 08/18/2023, Expires: Start: 08-18-2023 End: 11-17-2023 Hepatic function 2000 panel - Serum or Plasma [facility] Work Phone: Comment on above: Expected: 08/18/2023, Expires: Start: 08-18-2023 End: 11-17-2023 HEPATITIS A ANTIBODY, IGG [facility] Work Phone: Comment on above: Expected: 08/18/2023, Expires: 4 Start: 08-18-2023 End: 11-17-2023 Hepatitis B virus core Ab [Presence] in Serum [facility] Work Phone: Comment on above: Expected: 08/18/2023, Expires: Start: 08-18-2023 End: 11-17-2023 Hepatitis B virus surface Ab [Presence] in Serum [facility] Work Phone: Comment on above: Expected: 08/18/2023, Expires: Start: 08-18-2023 End: 11-17-2023 Hepatitis B virus surface Ag [Presence] in Serum [facility] Work Phone: Comment on above: Expected: 08/18/2023, Expires: Start: 06-10-2023 Covid-19 Vaccine ( season) Covid-19 Vaccine ( season) [facility] Start: 06-10-2023 Influenza vaccination [facility] Start: 05-04-2023 End: 07-04-2023 Hepatic function 2000 panel - Serum or Plasma HEPATIC FUNCTION PNL Lab Routine Elevated ALT measurement Expected: 05/04/2023, Expires: 07/04/2023 [facility] Work Phone: Comment on above: Expected: 05/04/2023, Expires: 3 Start: 04-21-2023 Adult depression screening assessment DEPRESSION SCREENING [facility] Start: 11-09-2022 Mammography MAMMOGRAM [facility] Start: 10-10-2022 DEPRESSION ASSESSMENT DEPRESSION ASSESSMENT [facility] Start: 09-16-2022 HPV TESTING HPV TESTING [facility] Start: 09-16-2022 PAP TESTING PAP TESTING [facility] Start: 06-10-2022 Influenza vaccination INFLUENZA (#1) [facility] Start: 06-07-2022 End: 08-07-2022 CBC panel - Blood by Automated count [facility] Work Phone: Comment on above: Expected: 06/07/2022, Expires: 2 Start: 06-07-2022 End: 08-07-2022 Fibrin D-dimer FEU [Mass/volume] in Platelet poor plasma [facility] Work Phone: Comment on above: Expected: 06/07/2022, Expires: 2 Start: 04-21-2022 End: 06-21-2022 CBC W Auto Differential panel - Blood [facility] Work Phone: Comment on above: Expected: 04/21/2022, Expires: 2 Start: 04-21-2022 End: 06-21-2022 Comprehensive metabolic 2000 panel - Serum or Plasma [facility] Work Phone: Comment on above: Expected: 04/21/2022, Expires: 2 Start: 04-21-2022 End: 06-21-2022 Follitropin [Units/volume] in Serum or Plasma [facility] Work Phone: Comment on above: Expected: 04/21/2022, Expires: 2 Start: 04-21-2022 End: 06-21-2022 Hemoglobin A1c in Blood [facility] Work Phone: Comment on above: Expected: 04/21/2022, Expires: 2 Start: 04-21-2022 End: 06-21-2022 Lipid 1996 panel - Serum or Plasma [facility] Work Phone: Comment on above: Expected: 04/21/2022, Expires: 2 Start: 04-21-2022 End: 06-21-2022 THYROID PEROXIDASE ANTIBODY BLOOD [facility] Work Phone: Comment on above: Expected: 04/21/2022, Expires: 2 Start: 04-21-2022 End: 06-21-2022 Thyrotropin [Units/volume] in Serum or Plasma [facility] Work Phone: Comment on above: Expected: 04/21/2022, Expires: 2 Start: 04-21-2022 End: 06-21-2022 Thyroxine (T4) free [Mass/volume] in Serum or Plasma [facility] Work Phone: Comment on above: Expected: 04/21/2022, Expires: 2 Start: 04-21-2022 End: 06-21-2022 Triiodothyronine (T3) Free [Mass/volume] in Serum or Plasma [facility] Work Phone: Comment on above: Expected: 04/21/2022, Expires: 2 Start: 04-15-2022 Adult depression screening assessment DEPRESSION SCREENING [facility] Start: 01-10-2022 COVID-19 VACCINE (4 - Booster for Moderna series) COVID-19 VACCINE (4 - Booster for Moderna series) [facility] Start: 11-06-2021 COVID-19 VACCINE (4 - Booster for Moderna series) COVID-19 VACCINE (4 - Booster for Moderna series) [facility] Start: 05-11-2021 Colonoscopy COLONOSCOPY [facility] Start: 05-11-2021 COLORECTAL CANCER SCREENING COLORECTAL CANCER SCREENING [facility] Start: 2021 Pneumococcal Vaccine: 50+ (1 of 1 - PCV) Pneumococcal Vaccine: 50+ (1 of 1 - PCV) [facility] Start: 2021 SHINGRIX VACCINE (1 of 2) SHINGRIX VACCINE (1 of 2) [facility] Start: 01-02-2016 COLOGUARD (FIT-DNA) COLOGUARD (FIT-DNA) [facility] Start: 01-02-[address] COLONOGRAPHY [facility] Start: 01-02-2016 FECAL OCCULT BLOOD FECAL OCCULT BLOOD [facility] Start: 01-02-2016 Screening for malignant neoplasm of colon [facility] Start: 01-02-2016 SIGMOIDOSCOPY SIGMOIDOSCOPY [facility] Start: 1989 Depression Screening Depression Screening [facility] Calprotectin [Mass/m ass] in Stool CALPROTECTIN,FECAL Lab Routine Internal hemorrhoids Ordered: 06/07/2025 [facility] Comment on above: Ordered: 06/07/2025 End: 08-18-2024 COLONOSCOPY DIAGNOSTIC COLONOSCOPY DIAGNOSTIC Endoscopy Routine History of proctitis Other constipation 1 Occurrences starting 08/18/2023 until 08/18/2024 [facility] Work Phone: Comment on above: 1 Occurrences starting 08/18/2023 until 08/18/2024 End: 06-28-2026 CT Chest WO contrast CT CHEST WO IVCON Radiology Routine Chronic cough 1 Occurrences starting 05/29/2025 until 06/28/2026 [facility] Comment on above: 1 Occurrences starting 05/29/2025 until 06/28/2026 End: 06-28-2026 CT Heart and Coronary arteries for calcium scoring WO contrast CT CALCIUM SCORING SELF PAY Radiology Routine RBBB Encounter for screening for cardiovascular disorders 1 Occurrences starting 05/29/2025 until 06/28/2026 [facility] Comment on above: 1 Occurrences starting 05/29/2025 until 06/28/2026 CYTOLOGY NON-MORNING NANNY CYTOLOGY NON-GY N Lab Routine Multinodular goiter Ordered: 04/23/2025 [facility] Work Phone: Comment on above: Ordered: 04/23/2025 End: 02-23-2025 DBT Breast - bilateral screening BALDEMAR SCREENING W GI[facility] Radiology Routine 1 Occurrences starting 01/25/2024 until 02/23/2025 [facility] Work Phone: Comment on above: 1 Occurrences starting 01/25/2024 until 02/23/2025 End: 01-24-2026 DBT Breast - bilateral screening BALDEMAR SCREENING [facility] [place] Radiology Routine Encounter for screening mammogram for breast cancer 1 Occurrences starting 12/25/2024 until 01/24/2026 [facility] Work Phone: Comment on above: 1 Occurrences starting 12/25/2024 until 01/24/2026 DBT Breast - bilater al screening BALDEMAR SCREENING [facility] [place] Radiology Routine Encounter for screening mammogram for breast cancer 06/12/2025 11:31 AM EDT [facility] Work Phone: End: 05-21-2023 Dxa bone density study 1/> sites axial skel DXA-AXIAL SKELETON Radiology Routine Perimenopausal Screening for osteoporosis 1 Occurrences starting 04/21/2022 until 05/21/2023 [facility] Work Phone: Comment on above: 1 Occurrences starting 04/21/2022 until 05/21/2023 End: 05-29-2026 Echocardiography ECHO Cardiology Routine Palpitations RBBB Family history of aortic aneurysm 1 Occurrences starting 05/29/2025 until 05/29/2026 [facility] Comment on above: 1 Occurrences starting 05/29/2025 until 05/29/2026 End: 05-29-2026 EXERCISE STRESS ECG (WITHOUT IMAGING) EXERCISE STRESS ECG (WITHOUT IMAGING) Cardiology Routine Palpitations RBBB Chronic cough Encounter for screening for cardiovascular disorders Family history of aortic aneurysm 1 Occurrences starting 05/29/2025 until 05/29/2026 [facility] Comment on above: 1 Occurrences starting 05/29/2025 until 05/29/2026 FAT, FECAL QUAL FAT, FECAL QUAL Lab Routine Internal hemorrhoids Ordered: 06/07/2025 [facility] Comment on above: Ordered: 06/07/2025 Liver ultrasound attenuation by transient elastography DDI VIBRATION CONTROLLED TRANSIENT ELASTOGRAPHY (VCTE) Endoscopy Routine Fatty liver Ordered: 06/01/2024 [facility] Work Phone: Comment on above: Ordered: 06/01/2024 End: 01-14-2024 BALDEMAR SCREENING W GI[place] BALDEMAR SCREENING W [facility] Routine Encounter for screening mammogram for breast cancer 1 Occurrences starting 12/15/2022 until 01/14/2024 [facility] Work Phone: Comment on above: 1 Occurrences starting 12/15/2022 until 01/14/2024 PANC ELASTASE, FECAL PANC ELASTA SE, FECAL Lab Routine Internal hemorrhoids Ordered: 06/07/2025 [facility] Work Phone: Comment on above: Ordered: 06/07/2025 PAP TEST PAP TEST Lab Rou thi Encounter for gynecological examination (general) (routine) without abnormal findings Encounter for screening for human papillomavirus (HPV) Pap smear for cervical cancer screening 12/22/2022 11:19 AM EDT [facility] Work Phone: SPIROMETRY - BASELIN E AND POST DILATOR SPIROMETRY - BASELINE AND POST DILATOR PFT Routine Chest tightness Persistent cough Post-COVID chronic cough 06/21/2022 8:35 AM EDT [facility] Work Phone: End: 06-28-2024 US ABD RIGHT UPPER QUADRANT US ABD RIGHT UPPER QUADRANT Radiology Routine Elevated LFTs 1 Occurrences starting 05/30/2023 until 06/28/2024 [facility] Work Phone: Comment on above: 1 Occurrences starting 05/30/2023 until 06/28/2024 End: 05-21-2023 Us soft tissue head & neck real time imge docm US THYROID/PARATHYROID Radiology Routine Thyromegaly 1 Occurrences starting 04/21/2022 until 05/21/2023 [facility] Work Phone: Comment on above: 1 Occurrences starting 04/21/2022 until 05/21/2023 US Thyroid gland US THYROID/PARA THYROID Radiology Routine Multiple thyroid nodules 04/01/2025 8:36 AM EDT [facility] Work Phone: [facility] Immunizations Immunization Date Immunization Notes Care Provider Harlan langston 08-26-2023 influenza, injectabl e, quadrivalent, contains preservative Immunization Fernando Work Phone: [facility] Work Phone: 08-26-2023 influenza virus vaccine, unspecified formulation Td Vick DO Work Phone: [facility] 08-07-2022 influenza virus vaccine, unspecified formulation Ny Leblanc STUNNER ANIMAL.VIDEO GAME ENGINEER Work Phone: [facility] 09-11-2021 COVID-19 vaccine, fu ll dose (MODERNA) Ana Mcdaniels STUNNER ANIMAL.VIDEO GAME ENGINEER Work Phone: [facility] Work Phone: 07-20-2021 influenza, seasonal, injectable Ana Praisler-Wood STUNNER ANIMAL.VIDEO GAME ENGINEER Work Phone: [facility] 11-28-2020 COVID-19 vaccine, fu ll dose (MODERNA) Ana Praisler-Wood STUNNER ANIMAL.VIDEO GAME ENGINEER Work Phone: [facility] 10-28-2020 COVID-19 vaccine, fu ll dose (MODERNA) Ana Praisler-Wood STUNNER ANIMAL.VIDEO GAME ENGINEER Work Phone: [facility] 08-14-2020 influenza, seasonal, injectable Ana Praisler-Wood STUNNER ANIMAL.[facility] Work Phone: [facility] 08-24-2019 influenza, injectabl e, quadrivalent, contains preservative Ana Praisler-Wood STUNNER ANIMAL.[facility] Work Phone: [facility] Work Phone: 07-04-2017 tetanus toxoid, reduced diphtheria toxoid, and acellular pertussis vaccine, adsorbed Ana Praisler-Wood STUNNER ANIMAL.VIDEO GAME ENGINEER Work Phone: [facility] 09-29-2016 hepatitis A vaccine, adult dosage Ana Praisler-Wood STUNNER ANIMAL.VIDEO GAME ENGINEER Work Phone: [facility] Work Phone: 08-16-2016 hepatitis B vaccine, adult dosage Ana Praisler-Wood STUNNER ANIMAL.VIDEO GAME ENGINEER Work Phone: [facility] Work Phone: 03-15-2016 hepatitis B vaccine, adult dosage Ana Praisler-Wood STUNNER ANIMAL.VIDEO GAME ENGINEER Work Phone: [facility] Work Phone: 02-12-2016 hepatitis B vaccine, adult dosage Ana Praisler-Wood STUNNER ANIMAL.VIDEO GAME ENGINEER Work Phone: [facility] 01-29-2016 hepatitis A vaccine, adult dosage Ana Praisler-Wood STUNNER ANIMAL.VIDEO GAME ENGINEER Work Phone: [facility] Work Phone: 02-02-2007 tetanus and diphther ia toxoids, adsorbed, preservative free, for adult use (2 Lf of tetanus toxoid and 2 Lf of diphtheria toxoid) Ana Mcdaniels APRN.[facility] Work Phone: [facility] Payers Date Payer Category Payer Unknown [id number] 2024 Self-pay 2022 Private Health Insurance [employer] [id number] 2022 Unknown [id number] 2019 Unknown [employer] PPO [id number] 2019-Present [phone] [address] [place] [address] PPO [id number] 2019 Unknown [id number] Unknown [id number] Unknown [id number] Unknown [id number] Unknown [id number] Social History Date Type Detail Facility Start: 09-22-2011 End: 06-21-2022 Tobacco smoking status NHIS Never smoked tobacco [facility] Start: 03-28-2022 End: 05-31-2025 Alcohol intake Current drinker of alcohol (finding) [facility] Start: 10-19-2021 End: 12-30-2022 History SDOH Alcohol Frequency 2 [facility] Start: 10-19-2021 End: 12-30-2022 History SDOH Alcohol Std Drinks 1 [facility] Start: 04-29-2016 History SDOH Alcohol Comment rare [facility] Start: 10-19-2021 History SDOH Social Connections Phone 4 [facility] Start: 10-19-2021 End: 12-30-2022 History SDOH Social Connections [facility] 3 [facility] Start: 10-19-2021 End: 12-30-2022 History SDOH Financial 5 [facility] Start: 06-17-2020 Education 16 [facility] Start: 1970 Sex Assigned At Female [facility] Start: 03-18-2022 End: 04-21-2022 Exposure to SARS-CoV-2 (event) Not sure [facility] Start: 09-22-2011 End: 06-21-2022 Tobacco use and exposure Smokeless tobacco non-user [facility] Start: 06-08-2022 End: 06-18-2022 Exposure to SARS-CoV-2 (event) Unable to assess [facility] Work Phone: Start: 12-30-2022 History SDOH Physical Activity MPS 6 [facility] Start: 12-30-2022 End: 04-29-2023 History of Social function [facility] Start: 12-30-2022 End: 04-29-2023 Social connection and isolation panel [facility] Do you belong to any clubs or organizations such as sabianist groups, unions, fraternal or athletic groups, or school groups? Yes [facility] Are you now , , , , never or living with a partner? [facility] How often to you hav e a drink containing alcohol? 2-4 times a month [facility] How many standard dr inks containing alcohol do you have on a typical day? 1 or 2 [facility] How often do you hav e 6 or more drinks on 1 occasion? Never [facility] Start: 09-10-2012 How hard is it for you to pay for the very basics like food, housing, medical care, and heating Not hard at all [facility] Do you feel stress - tense, restless, nervous, or anxious, or unable to sleep at night because your mind is troubled all the time - these days [OSQ] To some extent [facility] (I/We) worried rodrigo er (my/our) food would run out before (I/we) got money to buy more. Never true [facility] In the past 12 month s, was there a time when you were not able to pay the mortgage or rent on time? No [facility] Start: 04-09-2019 Gender identity Identifies as female gender (finding) [facility] Start: 04-09-2019 Sexual orientation Heterosexual (finding) [facility] How often to you hav e a drink containing alcohol? Monthly or less [facility] Do you feel stress - tense, restless, nervous, or anxious, or unable to sleep at night because your mind is troubled all the time - these days [OSQ] Not at all [facility] Do you feel stress - tense, restless, nervous, or anxious, or unable to sleep at night because your mind is troubled all the time - these days [OSQ] Only a little [facility] Functional Status Date Assessment Result Facility 12-24-2013 Are you deaf, or do you have serious difficulty hearing No 12/24/2013 8:37 AM Lucinda De La Vega MA No [facility] 12-24-2013 Are you blind, or do you have serious difficulty seeing, even when wearing glasses No 12/24/2013 8:37 AM Lucinda De La Vega MA No [facility] 12-24-2013 Do you have serious difficulty walking or climbing stairs No 12/24/2013 8:37 AM Lucinda De La Vega MA No [facility] 12-24-2013 Do you have difficul ty dressing or bathing No 12/24/2013 8:37 AM Lucinda De La Vega MA No [facility] 12-24-2013 Because of a physica l, mental, or emotional condition, do you have difficulty doing errands alone such as visiting a physician's office or shopping No 12/24/2013 8:37 AM EDT Lucinda Chaudhary MA No [facility] Mental Status Date Assessment Result Facility 12-24-2013 Because of a physica l, mental, or emotional condition, do you have serious difficulty concentrating, remembering, or making decisions No 12/24/2013 8:37 AM EDT Lucinda Chaudhary MA No [facility] Clinical Notes 11-29-2008 to 06-18-2025 Telephone Encounter - Dahlia Santiago RN - 06/18/2025 3:43 PM EDTTelephone Encounter - Dahlia Santiago RN - 06/18/2025 3:43 PM EDTSJerry stratton Mammo Tech - 06/12/2025 11:30 AM EDT Note Date & Type Note Facility 06-18-2025 Telephone encounter Note Patient called and notified that prescription was sent to pharmacy. Patient voices understanding. [facility] had told her that provider would be sending in medication. Dahlia Santiago RN [facility] 06-18-2025 Miscellaneous Notes Patient called and notified that prescription was sent to pharmacy. Patient voices understanding. [facility] had told her that provider would be sending in medication. Dahlia Santiago RN The following approved medication requests have been transmitted electronically. Requested Prescriptions Signed Prescriptions Disp Refills metoprolol tartrate, short acting, (LOPRESSOR) 50 mg tablet 1 tablet 0 Sig: Take 1 tablet by mouth one time only for 1 dose. Authorizing Provider: TD VICK Ordering User: MILTON CAMACHO APRN.CNP Nickolas from [facility] Radiology calls and reports that patient is having a calcium scoring test done at [facility] tomorrow. Heart rate for this should be less than 74 to get a good reading. Nickolas reports that she spoke with patient and patient has no clue what her heart rate is. Last heart rate in office was 80 on 05/29/2025. Nickolas states that if one time dose of metoprolol 50 mg is sent to pharmacy that usually will help with patient's heart rate during testing. Patient's pharmacy is [email or web address]. Please review and advise, Dahlia Santiago RN documented in this encounter [facility] 06-18-2025 Telephone encounter Note The following approved medication requests have been transmitted electronically. Requested Prescriptions Signed Prescriptions Disp Refills metoprolol tartrate, short acting, (LOPRESSOR) 50 mg tablet 1 tablet 0 Sig: Take 1 tablet by mouth one time only for 1 dose. Authorizing Provider: TD VICK Ordering User: MILTON CAMACHO APRN.VIDEO GAME ENGINEER [facility] 06-18-2025 Telephone encounter Note Nickolas from [facility] Radiology calls and reports that patient is having a calcium scoring test done at [facility] tomorrow. Heart rate for this should be less than 74 to get a good reading. Nickolas reports that she spoke with patient and patient has no clue what her heart rate is. Last heart rate in office was 80 on 05/29/2025. Nickolas states that if one time dose of metoprolol 50 mg is sent to pharmacy that usually will help with patient's heart rate during testing. Patient's pharmacy is [facility]. Please review and advise, Dahlia Santiago RN [facility] 06-14-2025 Telephone encounter Note Sent my chart messages as to what superviors have told us. [facility] 06-14-2025 Miscellaneous Notes Sent my chart messages as to what superviors have told us. documented in this encounter [facility] 06-12-2025 History of Present illness Narrative Radiology Service Progress Note PATIENT NAME: Ny Colon DATE OF SERVICE: June 12, 2025 TIME: 11:34 AM PATIENT IDENTITY VERIFICATION COMPLETED USING TWO (2) IDENTIFIERS: Name and Date of confirmed by patient verbally. FALL SCREENING: Has the patient had 2 falls in the last year or 1 fall with injury or currently using an Ambulatory Assistive Device (Walker, Cane, Wheelchair, Crutches, etc.)? No PATIENT GENDER DATA: Assigned female at . status: : No status: NO. PATIENT RELEVANT IMPLANT DATA REVIEWED: Not Applicable PATIENT PRESENTS WITH AN IMPLANTABLE OR ATTACHED HIGH VOLTAGE ELECTRICIAN: No RADIOLOGY DEPARTMENT: Mammography PERIPHERAL IV DATA: Not applicable SIGNED BY: Maribeth Ellington June 12, 2025 11:34 AM documented in this encounter [facility] 06-12-2025 Note HNO ID: [id number] Author: JERRY NESBITT Mammo Tech Service: ? Author Type: Automobile Contract Clerk Type: Progress Notes Filed: 06/12/2025 11:35 Note Text: Radiology Service Progress Note PATIENT NAME: Ny Colon DATE OF SERVICE: June 12, 2025 TIME: 11:34 AM PATIENT IDENTITY VERIFICATION COMPLETED USING TWO (2) IDENTIFIERS: Name and Date of confirmed by patient verbally. FALL SCREENING: Has the patient had 2 falls in the last year or 1 fall with injury or currently using an Ambulatory Assistive Device (Walker, Cane, Wheelchair, Crutches, etc.)? No PATIENT GENDER DATA: Assigned female at . status: : No status: NO. PATIENT RELEVANT IMPLANT DATA REVIEWED: Not Applicable PATIENT PRESENTS WITH AN IMPLANTABLE OR ATTACHED HIGH VOLTAGE ELECTRICIAN: No RADIOLOGY DEPARTMENT: Mammography PERIPHERAL IV DATA: Not applicable SIGNED BY: Jerry Nesbitt Superbac June 12, 2025 11:34 AM [facility] 06-07-2025 History of Present illness Narrative VIRTUAL VISIT FOLLOW UP I have communicated my name and active licensure. The patient's identity and physical location were verified at the time of this visit. Either the patient or their legal instruments sales representative has been informed of the risks and benefits of -- and alternatives to -- treatment through a remote evaluation and consents to proceed with the evaluation remotely. I had a virtual visit with Mrs. Colon today for follow up of fatty liver. UPDATED HISTORY: Adhering to GF, dairy free diet 85-90% of the time Was previously on no sugar diet. Started noticing increased issues with bloody stools since 03/2025 after incorporating sugar this past summer Bms are daily, small caliber, blood mixed with stools and when wiping. Denies straining with Bms, constipation. Scheduled for CT chest 06/21 due to chronic cough Denies dysphagia, acid indigestion VCTE 05/2025 S3, F0-F1 Colon 09/2023 Int hemorrhoids FINAL DIAGNOSIS A. Terminal ileum, biopsy: - Small bowel mucosa with no diagnostic abnormality. B. Cecum, biopsy: - Colonic mucosa with no diagnostic abnormality. C. Ascending colon, biopsy: - Colonic mucosa with no diagnostic abnormality. D. Transverse colon, biopsy: - Colonic mucosa with no diagnostic abnormality. E. Descending colon, biopsy: - Colonic mucosa with no diagnostic abnormality. F. Sigmoid colon, biopsy: - Colonic mucosa with no diagnostic abnormality. G. Rectum, biopsy: - Colonic mucosa with no diagnostic abnormality. Latest Ref Rng 05/29/2025 WBC 3.70 - 11.00 k/uL 5.43 RBC 3.90 - 5.20 m/uL 4.84 Hemoglobin 11.5 - 15.5 g/dL 14.4 Hematocrit 36.0 - 46.0 % 43.0 MCV 80.0 - 100.0 fL 88.8 MCH 26.0 - 34.0 pg 29.8 MCHC 30.5 - 36.0 g/dL 33.5 RDW-CV 11.5 - 15.0 % 13.2 Platelet Count 150 - 400 k/uL 227 MPV 9.0 - 12.7 fL 11.5 Neut% % 62.2 Abs Neut (ANC) 1.45 - 7.50 k/uL 3.38 Lymph% % 26.9 Abs Lymph 1.00 - 4.00 k/uL 1.46 [place]% % 7.2 Abs [place] <0.87 k/uL 0.39 Eosin% % 2.8 Abs Eosin <0.46 k/uL 0.15 Baso% % 0.7 Abs Baso <0.11 k/uL 0.04 Immature Gran % % 0.2 IMMATURE GRANS (ABS) <0.10 k/uL <0.03 NRBC /100 WBC 0.0 Absolute nRBC <0.01 k/uL <0.01 DTYPE Auto Protein, Total 6.3 - 8.0 g/dL 7.3 Albumin 3.9 - 4.9 g/dL 4.6 Calcium 8.5 - 10.2 mg/dL 9.7 Bilirubin, Total 0.2 - 1.3 mg/dL 0.4 Alkaline Phosphatase 34 - 123 U/L 70 AST 13 - 35 U/L 23 ALT 7 - 38 U/L 19 Glucose 74 - 99 mg/dL 75 BUN 7 - 21 mg/dL 14 Creatinine 0.58 - 0.96 mg/dL 0.75 Sodium 136 - 144 mmol/L 143 Potassium 3.7 - 5.1 mmol/L 4.7 Chloride 98 - 107 mmol/L 106 CO2 22 - 30 mmol/L 24 Anion Gap 8 - 15 mmol/L 13 eGFR >=60 mL/min/1.73m 95 TSH 0.270 - 4.200 mIU/L 0.746 PAST MEDICAL HISTORY Diagnosis Date ADD (attention deficit disorder) Aortic dilatation 05/2025 borderline Fatty liver 05/2023 Personal history of malignant melanoma of skin age 36 Kristie, follows regularly, Independent Driver Thyroid nodule Ulcerative proctitis (HCC) PAST SURGICAL HISTORY Procedure Laterality Date DELIVERY ONLY 1998, 2000 , low cervical COLONOSCOPY 05/11/2016 proctitis, ulcerations COLONOSCOPY 09/09/2023 int hemorrhoids, neg random biopsies KNEE ARTHROSCOP MENISCUS REPAIR MED/LAT Right Root repair PAST SURGICAL HISTORY OF 09/2006 Dr. Flowers, [facility]; right ankle mole remoal-path + melanoma in situ FAMILY HISTORY Problem Relation Age of Onset Hypertension Mother late 30's Thyroid Mother unknown type Psychiatry Mother Heart Mother aortic aneurisym Allergies Father Hypertension Father Psychiatry Father Thyroid Sister Hypertension Brother Hypertension Brother other (thyroidectom) Brother Stroke Maternal Grandmother later in life (70's) Hypertension Maternal Grandmother Hypertension Maternal Aunt age unknown Hypertension Maternal Aunt age unknown Thyroid Maternal Aunt Diabetes Other none Coronary Artery Disease Other none Colon Cancer No Family History Liver Disease No Family History SOCIAL HISTORY[1] No current outpatient medications on file. No current facility-administered medications for this visit. ALLERGIES Allergen Reactions Wellbutrin [Bupropi* Rash See 04/21/2010 REVIEW OF SYSTEMS: PAIN ASSESSMENT: Negative for pain, history of chronic pain, or current treatment for a chronic pain condition. GENERAL: No weight loss, malaise or fevers RESPIRATORY: Chronic cough CARDIOVASCULAR: Negative for chest pain, leg swelling, hypertension, CHF or palpitations GI: See HPI : No history of dysuria, frequency or incontinence MORNING NANNY: Negative for abnormal vaginal bleeding, abnormal vaginal discharge PHYSICAL FINDINGS OF NOTE: General - Normal, healthy, cooperative, in no acute distress Able to interact verbally by video conference Psych - ORIENTATION: normal to time place, person and situation Mood/Affect: AFFECT AND MOOD: Normal Head/Neuro - Normal size and shape Facial appearance normal Pulmonary - respiratory effort normal Cardiovascular - patient describes extremities normal, warm, no cyanosis,no clubbing, and no edema Abdominal - Not performed Skin - abnormal lesions not visualized Motor - patient seen sitting with Normal appearing strength and coordination Anorectal exam - Not Performed 1. Fatty liver (Primary) - CONSULT TO NUTRITION THERAPY; Future - She is adhering to strict plant based diet. She is interested in speaking with dietitian to help with persistent fatty liver disease - Immune to Hep A/B - Normal LFTs 05/2025 - Recheck VCTE [phone] 2. Internal hemorrhoids - PANC ELASTASE, FECAL - FAT, FECAL QUAL - CALPROTECTIN,FECAL - Suppositories not covered by insurance, advised to grape picker prep H suppositories OTC - States her son has been dx with GP and is taking digestive enzymes. Advised to check stool studies first prior to starting additional supplementation - Is to contact me if no improvement in bleeding, will need to consider repeat colonoscopy/surgical referral to address hemorrhoids 3. Chronic cough - Reports chronic cough; scheduled for CT chest 06/2025 per PCP. She is concerned about underlying GERD. No current sx of acid indigestion, belching, dysphagia. - Advised to proceed with additional testing as scheduled. Could consider ENT referral, EGD pending results I spent a total of 22 minutes on the date of the service which included preparing to see the patient, [id number] patient care, completing clinical documentation, obtaining and/or reviewing separately obtained history, performing a medically appropriate examination, counseling and educating the patient/family/caregiver, ordering medications, tests, or procedures, communicating with other HCPs (not separately reported), independently interpreting results (not separately reported), communicating results to the patient/family/caregiver, and care coordination (not separately reported). Selene Lindsey PA-C June 07, 2025 9:34 AM [1] Social History Tobacco Use Smoking status: Never Smokeless tobacco: Never Vaping Use Vaping status: Never Used Substance Use Topics Alcohol use: Yes Comment: rare Drug use: No documented in this encounter [facility] 06-07-2025 Note HNO ID: [id number] Author: SELENE LINDSEY PA-C Service: ? Author Type: Physician Licensed Real Estate Broker Type: Progress Notes Filed: 06/07/2025 09:40 Note Text: VIRTUAL VISIT FOLLOW UP I have communicated my name and active licensure. The patient's identity and physical location were verified at the time of this visit. Either the patient or their legal instruments sales representative has been informed of the risks and benefits of -- and alternatives to -- treatment through a remote evaluation and consents to proceed with the evaluation remotely. I had a virtual visit with Mrs. Colon today for follow up of fatty liver. UPDATED HISTORY: Adhering to GF, dairy free diet 85-90% of the time Was previously on no sugar diet. Started noticing increased issues with bloody stools since 03/2025 after incorporating sugar this past summer Bms are daily, small caliber, blood mixed with stools and when wiping. Denies straining with Bms, constipation. Scheduled for CT chest 06/21 due to chronic cough Denies dysphagia, acid indigestion VCTE 05/2025 S3, F0-F1 Colon 09/2023 Int hemorrhoids FINAL DIAGNOSIS A. Terminal ileum, biopsy: - Small bowel mucosa with no diagnostic abnormality. B. Cecum, biopsy: - Colonic mucosa with no diagnostic abnormality. C. Ascending colon, biopsy: - Colonic mucosa with no diagnostic abnormality. D. Transverse colon, biopsy: - Colonic mucosa with no diagnostic abnormality. E. Descending colon, biopsy: - Colonic mucosa with no diagnostic abnormality. F. Sigmoid colon, biopsy: - Colonic mucosa with no diagnostic abnormality. G. Rectum, biopsy: - Colonic mucosa with no diagnostic abnormality. Latest Ref Rng 05/29/2025 WBC 3.70 - 11.00 k/uL 5.43 RBC 3.90 - 5.20 m/uL 4.84 Hemoglobin 11.5 - 15.5 g/dL 14.4 Hematocrit 36.0 - 46.0 % 43.0 MCV 80.0 - 100.0 fL 88.8 MCH 26.0 - 34.0 pg 29.8 MCHC 30.5 - 36.0 g/dL 33.5 RDW-CV 11.5 - 15.0 % 13.2 Platelet Count 150 - 400 k/uL 227 MPV 9.0 - 12.7 fL 11.5 Neut% % 62.2 Abs Neut (ANC) 1.45 - 7.50 k/uL 3.38 Lymph% % 26.9 Abs Lymph 1.00 - 4.00 k/uL 1.46 [place]% % 7.2 Abs [place] <0.87 k/uL 0.39 Eosin% % 2.8 Abs Eosin <0.46 k/uL 0.15 Baso% % 0.7 Abs Baso <0.11 k/uL 0.04 Immature Gran % % 0.2 IMMATURE GRANS (ABS) <0.10 k/uL <0.03 NRBC /100 WBC 0.0 Absolute nRBC <0.01 k/uL <0.01 DTYPE Auto Protein, Total 6.3 - 8.0 g/dL 7.3 Albumin 3.9 - 4.9 g/dL 4.6 Calcium 8.5 - 10.2 mg/dL 9.7 Bilirubin, Total 0.2 - 1.3 mg/dL 0.4 Alkaline Phosphatase 34 - 123 U/L 70 AST 13 - 35 U/L 23 ALT 7 - 38 U/L 19 Glucose 74 - 99 mg/dL 75 BUN 7 - 21 mg/dL 14 Creatinine 0.58 - 0.96 mg/dL 0.75 Sodium 136 - 144 mmol/L 143 Potassium 3.7 - 5.1 mmol/L 4.7 Chloride 98 - 107 mmol/L 106 CO2 22 - 30 mmol/L 24 Anion Gap 8 - 15 mmol/L 13 eGFR >=60 mL/min/1.73m? 95 TSH 0.270 - 4.200 mIU/L 0.746 PAST MEDICAL HISTORY Diagnosis Date ADD (attention deficit disorder) Aortic dilatation 05/2025 borderline Fatty liver 05/2023 Personal history of malignant melanoma of skin age 36 Kristie, follows regularly, Independent Driver Thyroid nodule Ulcerative proctitis (HCC) PAST SURGICAL HISTORY Procedure Laterality Date DELIVERY ONLY 1998, 2000 , low cervical COLONOSCOPY 05/11/2016 proctitis, ulcerations COLONOSCOPY 09/09/2023 int hemorrhoids, neg random biopsies KNEE ARTHROSCOP MENISCUS REPAIR MED/LAT Right Root repair PAST SURGICAL HISTORY OF 09/2006 Dr. Flowers, [facility]; right ankle mole remoal-path + melanoma in situ FAMILY HISTORY Problem Relation Age of Onset Hypertension Mother late 30's Thyroid Mother unknown type Psychiatry Mother Heart Mother aortic aneurisym Allergies Father Hypertension Father Psychiatry Father Thyroid Sister Hypertension Brother Hypertension Brother other (thyroidectom) Brother Stroke Maternal Grandmother later in life (70's) Hypertension Maternal Grandmother Hypertension Maternal Aunt age unknown Hypertension Maternal Aunt age unknown Thyroid Maternal Aunt Diabetes Other none Coronary Artery Disease Other none Colon Cancer No Family History Liver Disease No Family History SOCIAL HISTORY[1] No current outpatient medications on file. No current facility-administered medications for this visit. ALLERGIES Allergen Reactions Wellbutrin [Bupropi* Rash See 04/21/2010 REVIEW OF SYSTEMS: PAIN ASSESSMENT: Negative for pain, history of chronic pain, or current treatment for a chronic pain condition. GENERAL: No weight loss, malaise or fevers RESPIRATORY: Chronic cough CARDIOVASCULAR: Negative for chest pain, leg swelling, hypertension, CHF or palpitations GI: See HPI : No history of dysuria, frequency or incontinence MORNING NANNY: Negative for abnormal vaginal bleeding, abnormal vaginal discharge PHYSICAL FINDINGS OF NOTE: General - Normal, healthy, cooperative, in no acute distress Able to interact verbally by video conference Psych - ORIENT (more content not included)... [facility] 05-31-2025 Telephone encounter Note Pt. informed via my Chart [facility] 05-31-2025 Miscellaneous Notes Pt. informed via my Chart Please inform patient that her ECHO shows CONCLUSIONS: - Exam indication: Palpitations - The left ventricle is normal in size. Left ventricular systolic function is normal. EF = 68 5% (2D 4-ch.) Normal left ventricular diastolic function. - The right ventricle is normal in size. Right ventricular systolic function is normal. - There are no significant valvular abnormalities. - The visualized aorta is borderline dilated with a maximal dimension of 3.8 cm. - The patient has not had a prior CC echocardiographic exam for comparison. This means that her aorta is borderline large but not significantly dilated. Recommend echo every 2 years Also her labs are all normal. No signs of lupus or other autoimmune condition. Td Vick DO documented in this encounter [facility] 05-31-2025 Telephone encounter Note Please inform patient that her ECHO shows CONCLUSIONS: - Exam indication: Palpitations - The left ventricle is normal in size. Left ventricular systolic function is normal. EF = 68 5% (2D 4-ch.) Normal left ventricular diastolic function. - The right ventricle is normal in size. Right ventricular systolic function is normal. - There are no significant valvular abnormalities. - The visualized aorta is borderline dilated with a maximal dimension of 3.8 cm. - The patient has not had a prior CC echocardiographic exam for comparison. This means that her aorta is borderline large but not significantly dilated. Recommend echo every 2 years Also her labs are all normal. No signs of lupus or other autoimmune condition. Td Vick DO [facility] 05-29-2025 Note HNO ID: [id number] Author: TD VICK DO Service: ? Author Type: Physician Type: Progress Notes Filed: 05/29/2025 21:36 Note Text: CC: Ny Colon is a 55 year old female who presents to the office for physical HPI: Blood in stool recently since March, no abdominal pain. Had colonoscopy 18 months ago. No vomiting. No nausea typically Redness of her face, concerned since like a butterfly rash. Diagnosed with Rosacea previously. No known hx of lupus. Is photosensitive. Dry cough x 1 year, non productive, no sputum production, no hemoptysis. Occasional dyspnea. No exertional symptoms. Hasn't had exposure to tobacco primary or secondary and no obvious inhalant exposure that she is aware of, no tobacco use, no vaping. No obvious wheezing, no hx of asthma. Does get palpitations- recently diagnosed with RBBB when having testing before surgery- this was previously unknown to her. Fatty liver disease, has had elastography testing to show no signs of fibrosis or cirrhosis- frustrated by worsening of her fatty liver despite working very hard on weight loss process. Her weight is up to 161 lbs at this time. Mother recently diagnosed with aortic aneurysm thoracic and had to have repair done at [facility] main [facility] PAST MEDICAL HISTORY Diagnosis Date ADD (attention deficit disorder) Fatty liver 05/2023 Personal history of malignant melanoma of skin age 36 [place], follows regularly, Independent Driver Thyroid nodule Ulcerative proctitis (HCC) PAST SURGICAL HISTORY Procedure Laterality Date DELIVERY ONLY 1998, 2000 , low cervical COLONOSCOPY 05/11/2016 proctitis, ulcerations COLONOSCOPY 09/09/2023 int hemorrhoids, neg random biopsies KNEE ARTHROSCOP MENISCUS REPAIR MED/LAT Right Root repair PAST SURGICAL HISTORY OF 09/2006 Dr. Flowers, [facility]; right ankle mole remoal-path + melanoma in situ Social History: SOCIAL HISTORY[1] FAMILY HISTORY Problem Relation Age of Onset Hypertension Mother late 30's Thyroid Mother unknown type Psychiatry Mother Heart Mother aortic aneurisym Allergies Father Hypertension Father Psychiatry Father Thyroid Sister Hypertension Brother Hypertension Brother other (thyroidectom) Brother Stroke Maternal Grandmother later in life (70's) Hypertension Maternal Grandmother Hypertension Maternal Aunt age unknown Hypertension Maternal Aunt age unknown Thyroid Maternal Aunt Diabetes Other none Coronary Artery Disease Other none Colon Cancer No Family History Liver Disease No Family History Current Outpatient prescriptions: No prescriptions on file. Allergies: ALLERGIES Allergen Reactions Wellbutrin [Bupropi* Rash See 04/21/2010 ROS: See HPI PE: 05/29/25 0909 BP: 110/70 Pulse: 80 Resp: 12 Temp: 36.5 ?C (97.7 ?F) TempSrc: Left Tympanic Weight: 73 kg (161 lb) Height: 166.5 cm (5' 5.55) Gen: AANDO, NAD, non-toxic appearing, Pleasant, cooperative HEENT: NT/AC, PERRLA, EOMs intact b/l, nares clear and patent b/l, pharynx without erythema, exudate or lesions. Uvula midline. MMMEACs without erythema or debris. TMs pearly peres with intact landmarks b/l. Neck: supple, No cervical LAD, no thyromegaly, no carotid bruits CV: RRR, normal S1 and S2, no murmurs, no gallops, no rubs, Pulses 2+ and symmetric in UE and LE b/l Lungs: normal respiratory effort, CTA b/l- slightly diminished in bases, no wheezing or rhonchi or rales Abd: soft, overweight, NT, ND, +BS, no hepatosplenomegaly MS: FROM all 4 extremities Neuro: CN II-XII intact b/l, strength 5/5 b/l UE and LE, DTRs 2/4 UE and LE, sensation intact. Skin: warm, dry, intact, No rashes or lesions on exposed skin. Erythematous butterfly rash on cheeks of face ASSESSMENT/PLAN: 1. Well adult exam - ICD9: V70.0, ICD10: Z00.00 (primary diagnosis) - Counseled on healthy diet and regular exercise - Discussed need and benefit for weight loss. BMI 26.34 kg/(m2) - JARRELL BY IFA WITH REFLEX - C-REACTIVE PROTEIN - COMPLETE BLOOD COUNT AND DIFFERENTIAL - COMPREHENSIVE METABOLIC PANEL - THYROID STIMULATING HORMONE - T4 FREE/FREE THYROXINE - T3, FREE - HEMOGLOBIN A1C - CORTISOL, SERUM - LIPID PANEL, FASTING 2. Palpitations - ICD9: 785.1, ICD10: R00.2 ECHO as ordered Further testing with stress testing Concerns due to heart disease and thoracic aneurysm in family/mother - ECHO - PERFLUTREN LIPID MICROSPHERES 1.1 MG/ML INJECTION IN NS 10 ML - SODIUM CHLORIDE 0.9 % (FLUSH) INJECTION SYRINGE - EXERCISE STRESS ECG (WITHOUT IMAGING) 3. RBBB - ICD9: 426.4, ICD10: I45.10 ECHO as ordered Further testing with stress testing Concerns due to heart disease and thoracic aneurysm in family/mother - ECHO - PERFLUTREN LIPID MICROSPHERES 1.1 MG/ML INJECTION IN NS 10 ML - SODIUM CHLORIDE 0.9 % (FLUSH) INJECTION SYRINGE - CT CALCIUM SCORING SELF PAY - EXERCISE STRESS ECG (WITHOUT IMAGING) 4. Chronic cough - ICD9: (more content not included)... [facility] 05-29-2025 History of Present illness Narrative CC: Ny Colon is a 55 year old female who presents to the office for physical HPI: Blood in stool recently since March, no abdominal pain. Had colonoscopy 18 months ago. No vomiting. No nausea typically Redness of her face, concerned since like a butterfly rash. Diagnosed with Rosacea previously. No known hx of lupus. Is photosensitive. Dry cough x 1 year, non productive, no sputum production, no hemoptysis. Occasional dyspnea. No exertional symptoms. Hasn't had exposure to tobacco primary or secondary and no obvious inhalant exposure that she is aware of, no tobacco use, no vaping. No obvious wheezing, no hx of asthma. Does get palpitations- recently diagnosed with RBBB when having testing before surgery- this was previously unknown to her. Fatty liver disease, has had elastography testing to show no signs of fibrosis or cirrhosis- frustrated by worsening of her fatty liver despite working very hard on weight loss process. Her weight is up to 161 lbs at this time. Mother recently diagnosed with aortic aneurysm thoracic and had to have repair done at [facility] [place] PAST MEDICAL HISTORY Diagnosis Date ADD (attention deficit disorder) Fatty liver 05/2023 Personal history of malignant melanoma of skin age 36 [place], follows regularly, Independent Driver Thyroid nodule Ulcerative proctitis (HCC) PAST SURGICAL HISTORY Procedure Laterality Date DELIVERY ONLY 1998, 2000 , low cervical COLONOSCOPY 05/11/2016 proctitis, ulcerations COLONOSCOPY 09/09/2023 int hemorrhoids, neg random biopsies KNEE ARTHROSCOP MENISCUS REPAIR MED/LAT Right Root repair PAST SURGICAL HISTORY OF 09/2006 Dr. Flowers, [facility]; right ankle mole remoal-path + melanoma in situ Social History: SOCIAL HISTORY[1] FAMILY HISTORY Problem Relation Age of Onset Hypertension Mother late 30's Thyroid Mother unknown type Psychiatry Mother Heart Mother aortic aneurisym Allergies Father Hypertension Father Psychiatry Father Thyroid Sister Hypertension Brother Hypertension Brother other (thyroidectom) Brother Stroke Maternal Grandmother later in life (70's) Hypertension Maternal Grandmother Hypertension Maternal Aunt age unknown Hypertension Maternal Aunt age unknown Thyroid Maternal Aunt Diabetes Other none Coronary Artery Disease Other none Colon Cancer No Family History Liver Disease No Family History Current Outpatient prescriptions: No prescriptions on file. Allergies: ALLERGIES Allergen Reactions Wellbutrin [Bupropi* Rash See 04/21/2010 ROS: See HPI PE: 05/29/25 0909 BP: 110/70 Pulse: 80 Resp: 12 Temp: 36.5 C (97.7 F) TempSrc: Left Tympanic Weight: 73 kg (161 lb) Height: 166.5 cm (5' 5.55) Gen: A&O, NAD, non-toxic appearing, Pleasant, cooperative HEENT: NT/AC, PERRLA, EOMs intact b/l, nares clear and patent b/l, pharynx without erythema, exudate or lesions. Uvula midline. MMMEACs without erythema or debris. TMs pearly peres with intact landmarks b/l. Neck: supple, No cervical LAD, no thyromegaly, no carotid bruits CV: RRR, normal S1 and S2, no murmurs, no gallops, no rubs, Pulses 2+ and symmetric in UE and LE b/l Lungs: normal respiratory effort, CTA b/l- slightly diminished in bases, no wheezing or rhonchi or rales Abd: soft, overweight, NT, ND, +BS, no hepatosplenomegaly MS: FROM all 4 extremities Neuro: CN II-XII intact b/l, strength 5/5 b/l UE and LE, DTRs 2/4 UE and LE, sensation intact. Skin: warm, dry, intact, No rashes or lesions on exposed skin. Erythematous butterfly rash on cheeks of face ASSESSMENT/PLAN: 1. Well adult exam - ICD9: V70.0, ICD10: Z00.00 (primary diagnosis) - Counseled on healthy diet and regular exercise - Discussed need and benefit for weight loss. BMI 26.34 kg/(m^2) - JARRELL BY IFA WITH REFLEX - C-REACTIVE PROTEIN - COMPLETE BLOOD COUNT AND DIFFERENTIAL - COMPREHENSIVE METABOLIC PANEL - THYROID STIMULATING HORMONE - T4 FREE/FREE THYROXINE - T3, FREE - HEMOGLOBIN A1C - CORTISOL, SERUM - LIPID PANEL, FASTING 2. Palpitations - ICD9: 785.1, ICD10: R00.2 ECHO as ordered Further testing with stress testing Concerns due to heart disease and thoracic aneurysm in family/mother - ECHO - PERFLUTREN LIPID MICROSPHERES 1.1 MG/ML INJECTION IN NS 10 ML - SODIUM CHLORIDE 0.9 % (FLUSH) INJECTION SYRINGE - EXERCISE STRESS ECG (WITHOUT IMAGING) 3. RBBB - ICD9: 426.4, ICD10: I45.10 ECHO as ordered Further testing with stress testing Concerns due to heart disease and thoracic aneurysm in family/mother - ECHO - PERFLUTREN LIPID MICROSPHERES 1.1 MG/ML INJECTION IN NS 10 ML - SODIUM CHLORIDE 0.9 % (FLUSH) INJECTION SYRINGE - CT CALCIUM SCORING SELF PAY - EXERCISE STRESS ECG (WITHOUT IMAGING) 4. Chronic cough - ICD9: 786.2, ICD10: R05.3 ECHO as ordered Further testing with stress testing Concerns due to heart disease and thoracic aneurysm in family/mother Concerns for cause due to 1 year of symptoms- ? Sarcoidosis vs. Pulm fibrosis/interstitial lung disease - CT CHEST WO IVCON - EXERCISE STRESS ECG (WITHOUT IMAGING) 5. Encounter for screening for cardiovascular disorders - ICD9: V81.2, ICD10: Z13.6 - CT CALCIUM SCORING SELF PAY - EXERCISE STRESS ECG (WITHOUT IMAGING) 6. Family history of aortic aneurysm - ICD9: V17.49, ICD10: Z82.49 See above - ECHO - PERFLUTREN LIPID MICROSPHERES 1.1 MG/ML INJECTION IN NS 10 ML - SODIUM CHLORIDE 0.9 % (FLUSH) INJECTION SYRINGE - EXERCISE STRESS ECG (WITHOUT IMAGING) 7. Butterfly rash - ICD9: 782.1, ICD10: R21 Labs as ordered, lupus vs. Rosacea? - JARRELL BY IFA WITH REFLEX - C-REACTIVE PROTEIN - COMPLETE BLOOD COUNT AND DIFFERENTIAL - COMPREHENSIVE METABOLIC PANEL - CORTISOL, SERUM - SEDIMENTATION RATE, WESTERGREN 8. Dyslipidemia - ICD9: 272.4, ICD10: E78.5 - Control undetermined, due for labs - Counseled on healthy diet and regular exercise - Discussed need for and benefit of weight loss. BMI 26.34 kg/(m^2) - LIPID PANEL, FASTING Td Vick DO To ER if develops chest pain, shortness of breath, or severe worsening of symptoms. Discussed risks, benefits, alternatives, and potential side effects of medications. Patient expressed understanding and agreed with the plan. Td Vick DO [address] [place] [address] [1] Social History Tobacco Use Smoking status: Never Smokeless tobacco: Never Vaping Use Vaping status: Never Used Substance Use Topics Alcohol use: Yes Comment: rare Drug use: No documented in this encounter [facility] 05-16-2025 Note HNO ID: [id number] Author: ASAF NEAL PA-C Service: ? Author Type: Physician Licensed [employer] Type: Progress Notes Filed: 05/16/2025 11:49 Note Text: Fibroscan Report Date performed: May 16, 2025 Indication : Fatty liver (primary encounter diagnosis) Patient fasted 3 hours:Yes Performed by Dorina Ruelas LPN Result-Findings Technical difficulties: None. Result: The reading was adequate. Please refer to get images report for individual readings Number of readings: 10 IQR %: 9 E (kpa): 4.1 CAP: 320 Impression The liver stiffness is 4.1 kPa which corresponds to 97% chance of stage 0-2 fibrosis. The CAP analysis showed grade S3 of liver steatosis. Stage of liver fibrosis based on above kPa: A 97% chance of stage 0-2 fibrosis A 3% chance of stage 3-4 fibrosis (advanced fibrosis) A <1% chance of stage 4 fibrosis (cirrhosis). A kPa >20 indicates a high likelihood of stage 4 fibrosis/cirrhosis, consider further testing to confirm and refer to hepatology. Recommendations If kPa <8.0, reassess periodically Fib-4 score every 1-2 years if T2DM/Pre-T2DM OR with 2 or more metabolic risk factors Fib-4 score 2-3 years if no T2DM and <2 metabolic risk factors If kPa >8.0, refer to hepatology for further evaluation Interpreted by: Asaf SWANN Fibroscan Fibrosis Risk <7 kPA = F0-F2 97%, F3+F4 3%, F4 <1% <10 kPA = F0-F2 91%, F3+F4 9%, F4 1.3% 10-15 kPA = F0-F2 56%, F3+F4 43%, F4 14% >15 kPA = F0-F2 26%, F3+F4 74%, F4 46% Grade CAP value up to 237 dB/M corresponds to S0 (< 10 % Fat) CAP value between (238 - 258 dB/M) corresponds to S1 (>/= 11 % Fat) CAP value between (259 - 289 dB/M) corresponds to S2 (>/= 33 % Fat) CAP value > 290dB/M corresponds to S3 (>/= 67 % Fat) stage 0 ( S0:< 10 % steatosis) stage 1 (>/= S1: 11%-33% steatosis) stage 2 (>/= S2: 34%-66% steatosis) stage 3 (>/= S3: > 66% steatosis) References Real Y, Jose Manuel Q, Real T, Lizz J, Real H, Jass T. Controlled attenuation parameter for assessment of hepatic steatosis grades: a diagnostic meta-analysis. Int J Clin Exp Med. 2015 Jul 15;8(10):90947-74. PMID: [id number]; PMCID: [id number]. Tejinder Pina, Sheyla TERESA, Darlene M, [place] F, Cornelio J, Anthony O, Luciana F, Emmy M, Pepe G, Rizwan A, Ivonne E, Moon L, Darcie G, Liane A, [place] U, Simpson S, Dejuan P, Letio V, de Antonette V, Hussein M, Meng SOLIS. Refining the Baveno elastography criteria for the definition of compensated advanced chronic liver disease. J Hepatol. 2020;74(5):7269-8117. doi: 10.1016/j.jhep.2020.11.050. Epub 2019Sep 17. PMID: [id number]. Rinella M, Yaz Cabrera, Mariana Pina, Jeanne M, Bertin S, Reny Naylor, Anthony Naylor, Iliana Damon. AAS practice guidance on the clinical assessment and management of nonalcoholic fatty liver disease. Hepatology. 2022;77(5):8902-3313. doi:10.1097/[id number] [facility] 04-23-2025 Note HNO ID: [id number] Author: ROLAND KIM MD Service: ? Author Type: Physician Type: Progress Notes Filed: 04/23/2025 12:29 Note Text: Preoperative diagnosis: Multinodular goiter Postoperative diagnosis: The same Procedure: Ultrasound-guided fine-needle aspiration of dominant right thyroid nodule Surgeon: Duane Procedure: Ultrasound the right thyroid gland and inferior lobe revealed the nodule in question. Prepped the skin with alcohol. Injected 1% lidocaine plain. Under ultrasound guidance for fine-needle aspirations were performed. These were plated on glass slides. Under ultrasound guidance Afirma test was sent. Sterile dressings were applied patient tolerated the procedure well. [facility] 04-23-2025 History of Present illness Narrative Preoperative diagnosis: Multinodular goiter Postoperative diagnosis: The same Procedure: Ultrasound-guided fine-needle aspiration of dominant right thyroid nodule Surgeon: Duane Procedure: Ultrasound the right thyroid gland and inferior lobe revealed the nodule in question. Prepped the skin with alcohol. Injected 1% lidocaine plain. Under ultrasound guidance for fine-needle aspirations were performed. These were plated on glass slides. Under ultrasound guidance Afirma test was sent. Sterile dressings were applied patient tolerated the procedure well. UNIVERSAL PROTOCOL / SAFETY CHECKLIST Procedure to be Performed: Sign In:Ultrasound Guided Fine Needle Aspiration Thyroid right A Moment of CARE was completed. Appropriate PPE (Personal Protective Equipment) worn by all providers involved with the procedure. Special equipment utilized ultrasound. Patient/Surrogate Stated/Verified: Patient name, Date of , Relevant allergies, and The intended procedure Time Out: Relevant labs, photos, and/or imaging studies have been reviewed. Intended patient and procedure match the source document(s) (e.g. consent, H&P, associated studies [imaging, pathology]) match the intended patient and procedure. Consent obtained and matches the intended procedure. Yes. Correct side/site has been marked and visible. Medications required for this procedure are verified. Fire risk assessed and is not applicable. Implants: are not applicable. Sign Out: Specimens are all correctly labeled and sent. All instruments, equipment, possible retained foreign bodies are accounted for. Yes. The post-procedure plan of care has been communicated to the patient or surrogate. documented in this encounter [facility] 04-23-2025 Instructions Tommie Catherine RN - 04/23/2025 10:34 AM EDT The following instructions are important for you related to your office visit today with the [facility] General Surgeons. Instructions After THYROID FINE NEEDLE ASPIRATION Please do not take aspirin or other blood thinners for the next few days. If you have bleeding from the needle site, hold pressure with a clean gauze. If the bleeding continues, contact our office immediately. I recommend taking Advil or Tylenol for the discomfort. An ice pack may improve your discomfort to the area. Contact our office immediately if you have any questions or concerns @ [phone]. Please make an appointment to follow up in one week with your physician and thank you for choosing the [facility]. If you note any additional difficulties, questions, or concerns, you should contact our office immediately @ [phone] and ask to be transferred to the General Surgery department. documented in this encounter [facility] 04-23-2025 Note HNO ID: [id number] Author: TOMMIE CATHERINE RN Service: ? Author Type: Registered Nurse Type: Progress Notes Filed: 04/23/2025 10:26 Note Text: UNIVERSAL PROTOCOL / SAFETY CHECKLIST Procedure to be Performed: Sign In:Ultrasound Guided Fine Needle Aspiration Thyroid right A Moment of CARE was completed. Appropriate PPE (Personal Protective Equipment) worn by all providers involved with the procedure. Special equipment utilized ultrasound. Patient/Surrogate Stated/Verified: Patient name, Date of , Relevant allergies, and The intended procedure Time Out: Relevant labs, photos, and/or imaging studies have been reviewed. Intended patient and procedure match the source document(s) (e.g. consent, HANDP, associated studies [imaging, pathology]) match the intended patient and procedure. Consent obtained and matches the intended procedure. Yes. Correct side/site has been marked and visible. Medications required for this procedure are verified. Fire risk assessed and is not applicable. Implants: are not applicable. Sign Out: Specimens are all correctly labeled and sent. All instruments, equipment, possible retained foreign bodies are accounted for. Yes. The post-procedure plan of care has been communicated to the patient or surrogate. [facility] 04-15-2025 Note HNO ID: [id number] Author: SAILAJA REAL MD Service: ? Author Type: Physician Type: Progress Notes Filed: 04/15/2025 09:03 Note Text: Ny Colon 1970 REFERRING PHYSICIAN: Td Vick DO CHIEF COMPLAINT: Consult (Thyroid nodule) HPI: The patient is a 55 year old female presents with abnormal ultrasound of thyroid. She had previous been noted with multinodular goiter by thyroid ultrasound in 2021. She notes that in the past 6 months she has coughing when lying supine. She denies choking sensation. She denies swallowing difficulties. She denies unusual exposure to radiation. She denies history of thyroiditis. She notes no immediate family members with thyroid cancer. PAST MEDICAL HISTORY Diagnosis Date ADD (attention deficit disorder) Fatty liver 05/2023 Personal history of malignant melanoma of skin age 36 [place], follows regularly, Independent Driver Thyroid nodule Ulcerative proctitis (HCC) PAST SURGICAL HISTORY Procedure Laterality Date DELIVERY ONLY 1998, 2000 , low cervical COLONOSCOPY 05/11/2016 proctitis, ulcerations COLONOSCOPY 09/09/2023 int hemorrhoids, neg random biopsies PAST SURGICAL HISTORY OF 09/2006 Dr. Flowers, [facility]; right ankle mole remoal-path + melanoma in situ Current Outpatient Medications Medication Sig MULTIVITAMIN ORAL Take by mouth. busPIRone (BUSPAR) 5 mg tablet Take 1 tablet by mouth two times a day as needed (anxiety symptoms). dextroamphetamine-amphetamine (ADDERALL) 5 mg tablet Take 1 tablet by mouth two times a day for 30 days. No current facility-administered medications for this visit. ALLERGIES: Wellbutrin [Bupropion Hcl] PERSONAL HISTORY: Social History Tobacco Use Smoking status: Never Smokeless tobacco: Never Vaping Use Vaping status: Never Used Substance Use Topics Alcohol use: Yes Comment: rare Drug use: No FAMILY HISTORY Problem Relation Age of Onset Hypertension Mother late 30's Thyroid Mother unknown type Psychiatry Mother Allergies Father Hypertension Father Psychiatry Father Thyroid Sister Hypertension Brother Hypertension Brother other (thyroidectom) Brother Stroke Maternal Grandmother later in life (70's) Hypertension Maternal Grandmother Hypertension Maternal Aunt age unknown Hypertension Maternal Aunt age unknown Thyroid Maternal Aunt Diabetes Other none Coronary Artery Disease Other none Colon Cancer No Family History Liver Disease No Family History REVIEW OF SYSTEMS: General - denies fevers, intentional weight loss HEENT - denies trauma/infections Resp - denies breathing difficulties Cardiac - denies chest pain GI - denies vomiting up of blood 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 The patient is oriented to time, place, and person. VITALS: Blood pressure 118/82, pulse 100, temperature 36.2 ?C (97.2 ?F), height 167.6 cm (5' 6), weight 74.7 kg (164 lb 9.6 oz), last menstrual period 10/23/2018, SpO2 98%. Body mass index is 26.57 kg/m?. Head - Normocephalic. EOM intact with sclera clear and no icterus noted. . Neck - supple with no jugular venous distention noted. Trachea is midline. No thyroid masses noted. Neck is supple with no tracheal deviation Cardiac: normal heart sounds, regular Respiratory: Normal respiratory excursion and pattern. Abdominal exam: benign Extremities: no clubbing, cyanosis or edema. Neuro: non focal Psych: normal mood The sensitive examination was discussed with the Patient or Patient's Authorized Burrito Maker. As applicable, any other physician, advance practice provider, medical student, or other health professional student that will be observing or involved in the sensitive examination for educational or training purposes was discussed with the Patient or Authorized Burrito Maker. The Patient or Authorized Burrito Maker has agreed to proceed with the sensitive examination. (Sensitive examination includes inspection and/or palpation of the breasts, pelvis, prostate and anorectal regions) Assessment IMPRESSION: abnormal thyroid ultrasound PLAN: I have discussed the above with the patient and her who is present with her I have recommended US guided FNA of right lower thyroid nodule I have explained the procedure to the patient. I have counseled the patient as to the risks of the procedure, including but not limited to: infection, bleeding etc. - the patient understands. The patient wishes to proceed. Patient wants procedure as soon as possible. Will schedule with Dr. Kim as he has availability in his schedule. I have answered all questions to the patient?s satisfaction and the patient has no further questions. I have confirmed and edited as necessary (more content not included)... [facility] 04-15-2025 History of Present illness Narrative Ny Colon 1970 REFERRING PHYSICIAN: Td Vick DO CHIEF COMPLAINT: Consult (Thyroid nodule) HPI: The patient is a 55 year old female presents with abnormal ultrasound of thyroid. She had previous been noted with multinodular goiter by thyroid ultrasound in 2021. She notes that in the past 6 months she has coughing when lying supine. She denies choking sensation. She denies swallowing difficulties. She denies unusual exposure to radiation. She denies history of thyroiditis. She notes no immediate family members with thyroid cancer. PAST MEDICAL HISTORY Diagnosis Date ADD (attention deficit disorder) Fatty liver 05/2023 Personal history of malignant melanoma of skin age 36 Kristie, follows regularly, Independent Driver Thyroid nodule Ulcerative proctitis (HCC) PAST SURGICAL HISTORY Procedure Laterality Date DELIVERY ONLY 1998, 2000 , low cervical COLONOSCOPY 05/11/2016 proctitis, ulcerations COLONOSCOPY 09/09/2023 int hemorrhoids, neg random biopsies PAST SURGICAL HISTORY OF 09/2006 Dr. Flowers, [facility]; right ankle mole remoal-path + melanoma in situ Current Outpatient Medications Medication Sig MULTIVITAMIN ORAL Take by mouth. busPIRone (BUSPAR) 5 mg tablet Take 1 tablet by mouth two times a day as needed (anxiety symptoms). dextroamphetamine-amphetamine (ADDERALL) 5 mg tablet Take 1 tablet by mouth two times a day for 30 days. No current facility-administered medications for this visit. ALLERGIES: Wellbutrin [Bupropion Hcl] PERSONAL HISTORY: Social History Tobacco Use Smoking status: Never Smokeless tobacco: Never Vaping Use Vaping status: Never Used Substance Use Topics Alcohol use: Yes Comment: rare Drug use: No FAMILY HISTORY Problem Relation Age of Onset Hypertension Mother late 30's Thyroid Mother unknown type Psychiatry Mother Allergies Father Hypertension Father Psychiatry Father Thyroid Sister Hypertension Brother Hypertension Brother other (thyroidectom) Brother Stroke Maternal Grandmother later in life (70's) Hypertension Maternal Grandmother Hypertension Maternal Aunt age unknown Hypertension Maternal Aunt age unknown Thyroid Maternal Aunt Diabetes Other none Coronary Artery Disease Other none Colon Cancer No Family History Liver Disease No Family History REVIEW OF SYSTEMS: General - denies fevers, intentional weight loss HEENT - denies trauma/infections Resp - denies breathing difficulties Cardiac - denies chest pain GI - denies vomiting up of blood 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 The patient is oriented to time, place, and person. VITALS: Blood pressure 118/82, pulse 100, temperature 36.2 C (97.2 F), height 167.6 cm (5' 6), weight 74.7 kg (164 lb 9.6 oz), last menstrual period 10/23/2018, SpO2 98%. Body mass index is 26.57 kg/m . Head - Normocephalic. EOM intact with sclera clear and no icterus noted. . Neck - supple with no jugular venous distention noted. Trachea is midline. No thyroid masses noted. Neck is supple with no tracheal deviation Cardiac: normal heart sounds, regular Respiratory: Normal respiratory excursion and pattern. Abdominal exam: benign Extremities: no clubbing, cyanosis or edema. Neuro: non focal Psych: normal mood The sensitive examination was discussed with the Patient or Patient's Authorized Burrito Maker. As applicable, any other physician, advance practice provider, medical student, or other health professional student that will be observing or involved in the sensitive examination for educational or training purposes was discussed with the Patient or Authorized Burrito Maker. The Patient or Authorized Burrito Maker has agreed to proceed with the sensitive examination. (Sensitive examination includes inspection and/or palpation of the breasts, pelvis, prostate and anorectal regions) Assessment IMPRESSION: abnormal thyroid ultrasound PLAN: I have discussed the above with the patient and her who is present with her I have recommended US guided FNA of right lower thyroid nodule I have explained the procedure to the patient. I have counseled the patient as to the risks of the procedure, including but not limited to: infection, bleeding etc. - the patient understands. The patient wishes to proceed. Patient wants procedure as soon as possible. Will schedule with Dr. Kim as he has availability in his schedule. I have answered all questions to the patient s satisfaction and the patient has no further questions. I have confirmed and edited as necessary, the PFSH and ROS obtained by others. Consultation requested by Dr. Td Vick for an opinion regarding patient's abnormal thyroid ultrasound. My final recommendations will be communicated back to the requesting physician by way of shared Medical record or letter to requesting physician via US mail. . Diagnoses: (E04.1) Right thyroid nodule Medical Decision Making: Problems: Moderate: New problem with uncertain prognosis Risk: Low: Low risk from testing/treatment Medical Decision Making Level: 3 - Low Sailaja Real MD documented in this encounter [facility] 04-03-2025 Telephone encounter Note Patient notified of results and provider's instructions. Patient verbalizes understanding. Dahlia Santiago RN [facility] 04-03-2025 Miscellaneous Notes Patient notified of results and provider's instructions. Patient verbalizes understanding. Dahlia Santiago RN Please inform patient that her thyroid US results show IMPRESSION: Multiple thyroid nodules. Nodule #3 has slightly increased in size and now has size/category for which FNA is recommended. This means that the one nodule in the right lower lobe is of size and appearance that it needs a fine needle aspiration biopsy by a general surgeon or an endocrine surgeon, whichever she prefers, either does a great job. This will make sure that the nodule is benign Td Vick DO documented in this encounter [facility] 04-03-2025 Telephone encounter Note Please inform patient that her thyroid US results show IMPRESSION: Multiple thyroid nodules. Nodule #3 has slightly increased in size and now has size/category for which FNA is recommended. This means that the one nodule in the right lower lobe is of size and appearance that it needs a fine needle aspiration biopsy by a general surgeon or an endocrine surgeon, whichever she prefers, either does a great job. This will make sure that the nodule is benign Td Vick DO [facility] 04-01-2025 History of Present illness Narrative Radiology Service Progress Note PATIENT NAME: Ny Colon DATE OF SERVICE: April 01, 2025 TIME: 11:12 AM PATIENT IDENTITY VERIFICATION COMPLETED USING TWO (2) IDENTIFIERS: Name and Date of confirmed by patient verbally. FALL SCREENING: Has the patient had 2 falls in the last year or 1 fall with injury or currently using an Ambulatory Assistive Device (Walker, Cane, Wheelchair, Crutches, etc.)? No PATIENT GENDER DATA: Assigned female at . status: : No status: NO. PATIENT RELEVANT IMPLANT DATA REVIEWED: Not Applicable PATIENT PRESENTS WITH AN IMPLANTABLE OR ATTACHED HIGH VOLTAGE ELECTRICIAN: No RADIOLOGY DEPARTMENT: Ultrasound PERIPHERAL IV DATA: Not applicable SIGNED BY: Francy Floyd RDMS RVT April 01, 2025 11:12 AM documented in this encounter [facility] 04-01-2025 Note HNO ID: [id number] Author: FRANCY FLOYD RDMS Service: ? Author Type: District Ranger Type: Progress Notes Filed: 04/01/2025 11:12 Note Text: Radiology Service Progress Note PATIENT NAME: Ny Colon DATE OF SERVICE: April 01, 2025 TIME: 11:12 AM PATIENT IDENTITY VERIFICATION COMPLETED USING TWO (2) IDENTIFIERS: Name and Date of confirmed by patient verbally. FALL SCREENING: Has the patient had 2 falls in the last year or 1 fall with injury or currently using an Ambulatory Assistive Device (Walker, Cane, Wheelchair, Crutches, etc.)? No PATIENT GENDER DATA: Assigned female at . status: : No status: NO. PATIENT RELEVANT IMPLANT DATA REVIEWED: Not Applicable PATIENT PRESENTS WITH AN IMPLANTABLE OR ATTACHED HIGH VOLTAGE ELECTRICIAN: No RADIOLOGY DEPARTMENT: Ultrasound PERIPHERAL IV DATA: Not applicable SIGNED BY: Francy Floyd RDMS Nguyễn April 01, 2025 11:12 AM [facility] 03-27-2025 Telephone encounter Note See telephone note [facility] 03-27-2025 Miscellaneous Notes See telephone note documented in this encounter [facility] 12-25-2024 Note Patient Outreach (FA MPWS) NY COLON ([id number]) 1970 F Date Time Provider Department 12/25/24 TD VICK During your visit today, we recorded the following information about you: Allergies As of Date: 12/25/2024 Noted Allergy Reaction WELLBUTRIN (BUPROPION HCL) 04/21/2010 2 - Rash Comments: See 04/21/2010 Date Reviewed: 06/01/2024 Reviewed by: Kalka, Selene, PA-C - Fully Assessed Visit Diagnosis:Encounter for screening mammogram for breast cancer [Z12.31] Order(s):BALDEMAR SCREENING W GIOVANY [[id number]] Order #: [id number] FUTURE Prescriptions as of 01/25/2025 - busPIRone (BUSPAR) 5 mg tablet Take 1 tablet by mouth two times a day as needed (anxiety symptoms). - dextroamphetamine-amphetamine (ADDERALL) 5 mg tablet Take 1 tablet by mouth two times a day for 30 days. - MULTIVITAMIN ORAL Take by mouth. Meds Comments as of 04/20/2021: Magnesium glyconate 425mg- two before bed Problem List As Of Date 12/25/2024 Noted Resolved Routine general medical examination at [facility]*11/29/2008 07/24/2012 Anxiety [F41.9] 12/10/2009 Unspecified pruritic disorder [L29.9] 07/24/2012 Vaginitis [N76.0] 07/24/2012 Acne [L70.9] 12/24/2013 Bright red blood per rectum [K62.5] 04/29/2016 ADD (attention deficit disorder) [F98.8] Fatty liver [K76.0] 05/2023 Encounter Status:Closed by ChuguobangTERRAUSER on 01/25/25 [facility] 06-01-2024 History of Present illness Narrative VIRTUAL VISIT FOLLOW UP I have communicated my name and active licensure. The patient's identity and physical location were verified at the time of this visit. Either the patient or their legal instruments sales representative has been informed of the risks and benefits of -- and alternatives to -- treatment through a remote evaluation and consents to proceed with the evaluation remotely. I had a virtual visit with Ms. Colon today for follow up of fatty liver. UPDATED HISTORY: Adhering to GF, dairy free diet. Does not need fiber supplement since starting plant based diet 12/2023 BMI is WNL Colon 09/2023 Int hemorrhoids FINAL DIAGNOSIS A. Terminal ileum, biopsy: - Small bowel mucosa with no diagnostic abnormality. B. Cecum, biopsy: - Colonic mucosa with no diagnostic abnormality. C. Ascending colon, biopsy: - Colonic mucosa with no diagnostic abnormality. D. Transverse colon, biopsy: - Colonic mucosa with no diagnostic abnormality. E. Descending colon, biopsy: - Colonic mucosa with no diagnostic abnormality. F. Sigmoid colon, biopsy: - Colonic mucosa with no diagnostic abnormality. G. Rectum, biopsy: - Colonic mucosa with no diagnostic abnormality. VCTE 06/2023 Impression The reading was adequate. FS=3.5 kPA. The CAP score is 327 and corresponds to steatosis grade of S3. This reading corresponds: A 97% chance of stage 0-2 fibrosis A 3% chance of stage 3-4 fibrosis (advanced fibrosis) A <1% chance of stage 4 fibrosis (cirrhosis). RUQ US 05/2023 IMPRESSION: Hepatic steatosis with heterogeneous liver parenchyma. Latest Ref Rng 04/30/2024 WBC 3.70 - 11.00 k/uL 5.52 RBC 3.90 - 5.20 m/uL 4.64 Hemoglobin 11.5 - 15.5 g/dL 13.9 Hematocrit 36.0 - 46.0 % 42.2 MCV 80.0 - 100.0 fL 90.9 MCH 26.0 - 34.0 pg 30.0 MCHC 30.5 - 36.0 g/dL 32.9 RDW-CV 11.5 - 15.0 % 12.9 Platelet Count 150 - 400 k/uL 234 MPV 9.0 - 12.7 fL 11.0 Neut% % 56.4 Abs Neut (ANC) 1.45 - 7.50 k/uL 3.11 Lymph% % 32.2 Abs Lymph 1.00 - 4.00 k/uL 1.78 [place]% % 8.5 Abs [place] <0.87 k/uL 0.47 Eosin% % 2.0 Abs Eosin <0.46 k/uL 0.11 Baso% % 0.7 Abs Baso <0.11 k/uL 0.04 Immature Gran % % 0.2 IMMATURE GRANS (ABS) <0.10 k/uL <0.03 NRBC /100 WBC 0.0 Absolute nRBC <0.01 k/uL <0.01 DTYPE Auto Protein, Total 6.3 - 8.0 g/dL 6.6 Albumin 3.9 - 4.9 g/dL 4.2 Calcium 8.5 - 10.2 mg/dL 9.4 Bilirubin, Total 0.2 - 1.3 mg/dL 0.3 Alkaline Phosphatase 34 - 123 U/L 72 AST 13 - 35 U/L 27 ALT 7 - 38 U/L 21 Glucose 74 - 99 mg/dL 86 BUN 7 - 21 mg/dL 7 Creatinine 0.58 - 0.96 mg/dL 0.70 Sodium 136 - 144 mmol/L 141 Potassium 3.7 - 5.1 mmol/L 4.4 Chloride 98 - 107 mmol/L 105 CO2 22 - 30 mmol/L 27 Anion Gap 8 - 15 mmol/L 9 eGFR >=60 mL/min/1.73m 104 Cholesterol, Total <200 mg/dL 94 Triglyceride <150 mg/dL 31 HDL Cholesterol >39 mg/dL 56 Non HDL Cholesterol <130 mg/dL 38 Fasting Time hrs 16 VLDL Cholesterol <30 mg/dL 6 TC:HDL Ratio <5.10 1.68 LDL Cholesterol <100 mg/dL 32 LDL:HDL Ratio <2.54 0.57 Hemoglobin A1C 4.3 - 5.6 % 4.7 Estimated Average Glucose mg/dL 88 TSH 0.270 - 4.200 mIU/L 1.060 Free T4 0.9 - 1.7 ng/dL 1.1 Vitamin B12 232 - 1,245 pg/mL 458 Vitamin D 25 Hydroxy 31.0 - 80.0 ng/mL 57.6 OV 11/2023 Bms have been regular, no issues with bleeding. Takes fiber supplement PRN. Adhering to GF, dairy free diet with relief. PAST MEDICAL HISTORY No date: ADD (attention deficit disorder) 05/2023: Fatty liver age 36: Personal history of malignant melanoma of skin Comment: Kristie follows regularly, Independent Driver No date: Ulcerative proctitis (HCC) PAST SURGICAL HISTORY 1998, 2000: DELIVERY ONLY Comment: , low cervical 05/11/2016: COLONOSCOPY Comment: proctitis, ulcerations 09/09/2023: COLONOSCOPY Comment: int hemorrhoids, neg random biopsies 09/2006: PAST SURGICAL HISTORY OF Comment: Dr. Flowers, [facility]; right ankle mole remoal-path + melanoma in situ FAMILY HISTORY Problem Relation Age of Onset Hypertension Mother late 30's Thyroid Mother unknown type Psychiatry Mother Allergies Father Hypertension Father Psychiatry Father Thyroid Sister Hypertension Brother Hypertension Brother other (thyroidectom) Brother Stroke Maternal Grandmother later in life (70's) Hypertension Maternal Grandmother Hypertension Maternal Aunt age unknown Hypertension Maternal Aunt age unknown Thyroid Maternal Aunt Diabetes Other none Coronary Artery Disease Other none Colon Cancer No Family History Liver Disease No Family History Social History Tobacco Use Smoking status: Never Smokeless tobacco: Never Vaping Use Vaping status: Never Used Substance Use Topics Alcohol use: Yes Comment: rare Drug use: No Current Outpatient Medications Medication Sig Dispense Refill busPIRone (BUSPAR) 5 mg tablet Take 1 tablet by mouth two times a day as needed (anxiety symptoms). 30 tablet 2 dextroamphetamine-amphetamine (ADDERALL) 5 mg tablet Take 1 tablet by mouth two times a day for 30 days. 60 tablet 0 MULTIVITAMIN ORAL Take by mouth. No current facility-administered medications for this visit. Facility-Administered Medications Ordered in Other Visits Medication Dose Route Frequency Provider Last Rate Last Admin lidocaine (PF) 10 mg/mL (1 %) 1-2 mg injection (XYLOCAINE) 0.1-0.2 mL INTRADERMAL PRN Bear Hess MD lactated ringers iv infusion 30 mL/hr INTRAVENOUS CONTINUOUS Bear Hess MD ALLERGIES Allergen Reactions Wellbutrin [Bupropi* Rash See 04/21/2010 REVIEW OF SYSTEMS: PAIN ASSESSMENT: Negative for pain, history of chronic pain, or current treatment for a chronic pain condition. GENERAL: No weight loss, malaise or fevers RESPIRATORY: Negative for cough, hemoptysis, wheezing, COPD, dyspnea or shortness of breath CARDIOVASCULAR: Negative for chest pain, leg swelling, hypertension, CHF or palpitations GI: See HPI : No history of dysuria, frequency or incontinence MORNING NANNY: Negative for abnormal vaginal bleeding, abnormal vaginal discharge PHYSICAL FINDINGS OF NOTE: General - Normal, healthy, cooperative, in no acute distress Able to interact verbally by video conference Psych - ORIENTATION: normal to time place, person and situation Mood/Affect: AFFECT AND MOOD: Normal Head/Neuro - Normal size and shape Facial appearance normal Pulmonary - respiratory effort normal Cardiovascular - patient describes extremities normal, warm, no cyanosis,no clubbing, and no edema Abdominal - Not performed Skin - abnormal lesions not visualized Motor - patient seen sitting with Normal appearing strength and coordination Anorectal exam - Not Performed Assessment/Plan (K76.0) Fatty liver (primary encounter diagnosis) 1. Fatty liver - DDI VIBRATION CONTROLLED TRANSIENT ELASTOGRAPHY (VCTE) - Adhering to GF, dairy free, plant based diet, BMI WNL, recent LFTs 04/2024 WNL - Will plan to obtain updated fibroscan. Informed if scan improved from prior imaging last year may not need further follow up routine fibroscan imaging - Immune to Hep A/B Follow up in office 12 months/PRN. I spent a total of <10 minutes on the date of the service which included preparing to see the patient, [id number] patient care, completing clinical documentation, obtaining and/or reviewing separately obtained history, performing a medically appropriate examination, counseling and educating the patient/family/caregiver, ordering medications, tests, or procedures, communicating with other HCPs (not separately reported), independently interpreting results (not separately reported), communicating results to the patient/family/caregiver, and care coordination (not separately reported). Selene Lindsey PA-C June 01, 2024 9:29 AM documented in this encounter [facility] 05-01-2024 History of Present illness Narrative CC: Ny Colon is a 54 year old female who presents to the office for physical HPI: She has actively been working on weight loss and has lost about 25-30 lbs since summer. She states that this is helping with her enegy and feels much better. Hx of melanoma, sees Independent Driver regularly ADD, stable, taking adderall as needed with benefit Chronic anxiety symptoms. Was well controlled with healthy diet and exercise, which she is continuing to do consistently. She has had increased anxiety recently she her daughter is getting in 48 days and her son whom is in the is going to be engaged soon and likely Jul 2025 and she will need to be planning most of it. No SI or HI. Has good support from her . This has recently been intermittently consuming her. She would like an as needed medication that she can try- doesn't want to be on a daily medication PAST MEDICAL HISTORY Diagnosis Date ADD (attention deficit disorder) Fatty liver 05/2023 Personal history of malignant melanoma of skin age 36 Kristie, follows regularly, Independent Driver Ulcerative proctitis (HCC) PAST SURGICAL HISTORY Procedure Laterality Date DELIVERY ONLY 1998, 2000 , low cervical COLONOSCOPY 05/11/2016 proctitis, ulcerations COLONOSCOPY 09/09/2023 int hemorrhoids, neg random biopsies PAST SURGICAL HISTORY OF 09/2006 Dr. Flowers, [facility]; right ankle mole remoal-path + melanoma in situ Social History: Social History Tobacco Use Smoking status: Never Smokeless tobacco: Never Vaping Use Vaping Use: Never used Substance Use Topics Alcohol use: Yes Comment: rare Drug use: No FAMILY HISTORY Problem Relation Age of Onset Hypertension Mother late 30's Thyroid Mother unknown type Psychiatry Mother Allergies Father Hypertension Father Psychiatry Father Thyroid Sister Hypertension Brother Hypertension Brother other (thyroidectom) Brother Stroke Maternal Grandmother later in life (70's) Hypertension Maternal Grandmother Hypertension Maternal Aunt age unknown Hypertension Maternal Aunt age unknown Thyroid Maternal Aunt Diabetes Other none Coronary Artery Disease Other none Colon Cancer No Family History Liver Disease No Family History Current Outpatient prescriptions: busPIRone (BUSPAR) 5 mg tablet^Take 1 tablet by mouth two times a day as needed (anxiety symptoms).^Disp: 30 tablet^Rfl: 2 dextroamphetamine-amphetamine (ADDERALL) 5 mg tablet^Take 1 tablet by mouth two times a day for 30 days.^Disp: 60 tablet^Rfl: 0 MULTIVITAMIN ORAL^Take by mouth.^Disp: ^Rfl: Allergies: ALLERGIES Allergen Reactions Wellbutrin [Bupropi* Rash See 04/21/2010 ROS: See HPI PE: 04/30/24 0803 BP: 110/78 Pulse: 80 Resp: 16 Temp: 36.1 C (97 F) TempSrc: Left Tympanic Weight: 68 kg (150 lb) Height: 166.5 cm (5' 5.55) Gen: A&O, NAD, non-toxic appearing, Pleasant, cooperative HEENT: NT/AC, PERRLA, EOMs intact b/l, nares clear and patent b/l, pharynx without erythema, exudate or lesions. Uvula midline. EACs without erythema or debris. TMs pearly peres with intact landmarks b/l. Neck: supple, No cervical LAD, no thyromegaly, no carotid bruits CV: RRR, normal S1 and S2, no murmurs, no gallops, no rubs, Pulses 2+ and symmetric in UE and LE b/l Lungs: normal respiratory effort, CTA b/l, no wheezing or rhonchi or rales Abd: soft, NT, ND, +BS, no hepatosplenomegaly MS: FROM all 4 extremities Neuro: CN II-XII intact b/l, strength 5/5 b/l UE and LE, DTRs 2/4 UE and LE, sensation intact. Skin: warm, dry, intact, No rashes or lesions on exposed skin. No edema, normal pulses ASSESSMENT/PLAN: 1. Situational anxiety - ICD9: 300.09, ICD10: F41.8 (primary diagnosis) rx prn Has triggers recently that have sometimes been difficult to control If buspirone not effective, then change to alprazolam - BUSPIRONE 5 MG TABLET 2. Well adult exam - ICD9: V70.0, ICD10: Z00.00 - Counseled on healthy diet and regular exercise - CORTISOL, SERUM - COMPREHENSIVE METABOLIC PANEL - HEMOGLOBIN A1C - THYROID STIMULATING HORMONE - T4 FREE/FREE THYROXINE - LIPID PANEL BASIC - COMPLETE BLOOD COUNT AND DIFFERENTIAL - T3, FREE - VITAMIN B12 - VITAMIN D 25 HYDROXY 3. Vitamin D deficiency - ICD9: 268.9, ICD10: E55.9 Continue supplement - VITAMIN D 25 HYDROXY 4. Attention deficit disorder (ADD) in adult - ICD9: 314.00, ICD10: F98.8 rx prn, not daily Stable symptoms - DEXTROAMPHETAMINE-AMPHETAMINE 5 MG TABLET 5. Elevated LFTs - ICD9: 790.6, ICD10: R79.89 Recheck labs Has lost 30 lbs intentionally in the last 1 year - COMPREHENSIVE METABOLIC PANEL - COMPLETE BLOOD COUNT AND DIFFERENTIAL Td Vick DO PDMP website checked and validated. All prescriptions have been APPROPRIATELY filled. No suspicious activity was identified. 05/01/2024 by Td Vick DO To ER if develops chest pain, shortness of breath, or severe worsening of symptoms. Discussed risks, benefits, alternatives, and potential side effects of medications. Patient expressed understanding and agreed with the plan. Td Vick DO [address] [place] [address] documented in this encounter [facility] 04-04-2024 History of Present illness Narrative Chief Complaint Patient presents with: Medication Request: Would like to restart adderall, has not been filled x years, did take left over adderall the last 4 days HPI Ny Colon is a 54 year old female who presents here today for Above Complaints.. Over the past 3 months has had a lot going on in her life. Daughter is getting , twins graduated from college, son is going to the army. Can't seem to get anything done, difficulty with organization. Trying to control her emotions and this makes things difficult to get things done. Had some leftover Adderall from previous rx. Took 5mg in the am, 5mg in the pm and this has been great for her. noticed a big difference. Tried Vyvanse but this made her feel like a zombie. Works out 5 days per week. No sugar, no flour. Exercises regularly. Past medical history, appointments, medications, allergies reviewed. Previous Medical History PAST MEDICAL HISTORY Diagnosis Date ADD (attention deficit disorder) Fatty liver 05/2023 Personal history of malignant melanoma of skin age 36 Kristie, follows regularly, Independent Driver Ulcerative proctitis (HCC) Previous Surgical History PAST SURGICAL HISTORY Procedure Laterality Date DELIVERY ONLY 1998, 2000 , low cervical COLONOSCOPY 05/11/2016 proctitis, ulcerations COLONOSCOPY 09/09/2023 int hemorrhoids, neg random biopsies PAST SURGICAL HISTORY OF 09/2006 Dr. Flowers, [facility]; right ankle mole remoal-path + melanoma in situ Family History FAMILY HISTORY Problem Relation Age of Onset Hypertension Mother late 30's Thyroid Mother unknown type Psychiatry Mother Allergies Father Hypertension Father Psychiatry Father Thyroid Sister Hypertension Brother Hypertension Brother other (thyroidectom) Brother Stroke Maternal Grandmother later in life (70's) Hypertension Maternal Grandmother Hypertension Maternal Aunt age unknown Hypertension Maternal Aunt age unknown Thyroid Maternal Aunt Diabetes Other none Coronary Artery Disease Other none Colon Cancer No Family History Liver Disease No Family History Patient Allergies ALLERGIES Allergen Reactions Wellbutrin [Bupropi* Rash See 04/21/2010 Current Medications Current Outpatient Medications on File Prior to Visit Medication Sig MULTIVITAMIN ORAL Take by mouth. Current Facility-Administered Medications on File Prior to Visit Medication lidocaine (PF) 10 mg/mL (1 %) 1-2 mg injection (XYLOCAINE) lactated ringers iv infusion Social History Social History Tobacco Use Smoking status: Never Smokeless tobacco: Never Vaping Use Vaping Use: Never used Substance Use Topics Alcohol use: Yes Comment: rare Drug use: No Review of Symptoms REVIEW OF SYSTEMS See HPI, otherwise negative EXAM: BP 120/82 (BP Site: Left Arm, BP Position: Sitting, BP Cuff Size: Regular Adult) Pulse 96 Resp 16 Wt 67.9 kg (149 lb 12.8 oz) LMP 10/23/2018 (Exact Date) SpO2 95% BMI 24.93 kg/m General Appearance: Well appearing, alert, in no acute distress, well-hydrated, well nourished.. Lungs: Lungs clear to auscultation. No wheezing, rhonchi, rales.. Heart: RRR without murmur, gallop, or rubs. No ectopy. Psychiatric: pleasant, cooperative. Health Maintenance List Shingrix Vaccine(1 of 2) Never done Covid-19 Vaccine( season) due on 06/10/2023 Mammogram Screening due on 12/23/2023 Diabetes Screening due on 04/29/2026 DTaP,Tdap,Td Vaccine(2 - Td or Tdap) due on 07/04/2027 Cervical Cancer Screening due on 12/23/2027 Lipid Screening due on 04/29/2028 Colorectal Cancer Screening due on 09/09/2033 Influenza Vaccine Completed Behavioral Health Screening Completed Hepatitis C Screening Completed HIV Screening Completed Data reviewed Previous records, office notes, [facility] report PDMP website checked and validated. All prescriptions have been APPROPRIATELY filled. No suspicious activity was identified. 04/04/2024 by Milton Camacho CNP. ASSESSMENT/PLAN: 1. Attention deficit disorder (ADD) in adult - ICD9: 314.00, ICD10: F98.8 Previous Adderall dose 5mg bid worked well and has done well the past couple days. Urine tox screen ordered. Controlled substance agreement signed. Is already scheduled with PCP Dr. Vick in a month, can reassess at that point. - TOXICOLOGY SCREEN, ROUTINE URINE - PAIN PANEL, UR QUANT - DEXTROAMPHETAMINE-AMPHETAMINE 5 MG TABLET Milton Camacho APRN.JATIN documented in this encounter [facility] 12-02-2023 History of Present illness Narrative VIRTUAL VISIT FOLLOW UP I have communicated my name and active licensure. The patient's identity and physical location were verified at the time of this visit. Either the patient or their legal instruments sales representative has been informed of the risks and benefits of -- and alternatives to -- treatment through a remote evaluation and consents to proceed with the evaluation remotely. I had a virtual visit with Ms. Colon today for follow up of fatty liver, constipation. UPDATED HISTORY: Bms have been regular, no issues with bleeding. Takes fiber supplement PRN. Adhering to GF, dairy free diet with relief. Colon 09/2023 Int hemorrhoids FINAL DIAGNOSIS A. Terminal ileum, biopsy: - Small bowel mucosa with no diagnostic abnormality. B. Cecum, biopsy: - Colonic mucosa with no diagnostic abnormality. C. Ascending colon, biopsy: - Colonic mucosa with no diagnostic abnormality. D. Transverse colon, biopsy: - Colonic mucosa with no diagnostic abnormality. E. Descending colon, biopsy: - Colonic mucosa with no diagnostic abnormality. F. Sigmoid colon, biopsy: - Colonic mucosa with no diagnostic abnormality. G. Rectum, biopsy: - Colonic mucosa with no diagnostic abnormality. VCTE 06/2023 Impression The reading was adequate. FS=3.5 kPA. The CAP score is 327 and corresponds to steatosis grade of S3. This reading corresponds: A 97% chance of stage 0-2 fibrosis A 3% chance of stage 3-4 fibrosis (advanced fibrosis) A <1% chance of stage 4 fibrosis (cirrhosis). RUQ US 05/2023 IMPRESSION: Hepatic steatosis with heterogeneous liver parenchyma. Component Latest Ref Rng & Units 08/18/2023 Albumin 3.9 - 4.9 g/dL 4.4 Bilirubin, Total 0.2 - 1.3 mg/dL 0.4 Bilirubin, Conjug <0.2 mg/dL <0.2 Alkaline Phosphatase 34 - 123 U/L 71 AST 13 - 35 U/L 24 ALT 7 - 38 U/L 32 Protein, Total 6.3 - 8.0 g/dL 6.6 Hep B Surface Ab, Qual Positive Hep B Surf Ab Quant mIU/mL 294.10 Ferritin 14.7 - 205.1 ng/mL 108.0 Hepatitis A IgG Positive OV 08/2023 Ny Colon is a 53 year old female who presents for Elevated LFT's (Fatty Liver, constipation ). Lost 21 lbs since dx of fatty liver 05/2023. Gave up dairy, eating GF diet. Was taking Advil daily 800 mg due to knee injury 02/2023, stopped after initial findings of elevated LFTs 04/2023. Bms are 1-2x per week, attributes this to her fasting, no blood. Denies EtOH, family hx of GI related cancers, regular GERD sx. Family hx of liver disease in brother (fatty liver) Colonoscopy 2015 CONVERTED FINAL DIAGNOSIS 1. Ileocecal valve, biopsy (A) - Colonic mucosa with no significant diagnostic alteration. 2. Rectum, biopsy (B) - Chronic active colitis with rare crypt rupture granuloma, negative for dysplasia. See comment. DSA/rw 05/13/2016 PAST MEDICAL HISTORY Diagnosis Date ADD (attention deficit disorder) Fatty liver 05/2023 Personal history of malignant melanoma of skin age 36 Kristie, follows regularly, Independent Driver Ulcerative proctitis (HCC) PAST SURGICAL HISTORY Procedure Laterality Date DELIVERY ONLY 1998, 2000 , low cervical COLONOSCOPY 05/11/2016 proctitis, ulcerations COLONOSCOPY 09/09/2023 int hemorrhoids, neg random biopsies PAST SURGICAL HISTORY OF 09/2006 Dr. Flowers, [facility]; right ankle mole remoal-path + melanoma in situ FAMILY HISTORY Problem Relation Age of Onset Hypertension Mother late 30's Thyroid Mother unknown type Psychiatry Mother Allergies Father Hypertension Father Psychiatry Father Thyroid Sister Hypertension Brother Hypertension Brother other (thyroidectom) Brother Stroke Maternal Grandmother later in life (70's) Hypertension Maternal Grandmother Hypertension Maternal Aunt age unknown Hypertension Maternal Aunt age unknown Thyroid Maternal Aunt Diabetes Other none Coronary Artery Disease Other none Colon Cancer No Family History Liver Disease No Family History Social History Tobacco Use Smoking status: Never Smokeless tobacco: Never Vaping Use Vaping Use: Never used Substance Use Topics Alcohol use: Yes Comment: rare Drug use: No Current Outpatient Medications Medication Sig Dispense Refill MULTIVITAMIN ORAL Take by mouth. No current facility-administered medications for this visit. Facility-Administered Medications Ordered in Other Visits Medication Dose Route Frequency Provider Last Rate Last Admin lidocaine (PF) 10 mg/mL (1 %) 1-2 mg injection (XYLOCAINE) 0.1-0.2 mL INTRADERMAL PRN Bear Hess MD lactated ringers iv infusion 30 mL/hr INTRAVENOUS CONTINUOUS Bear Hess MD ALLERGIES Allergen Reactions Wellbutrin [Bupropi* Rash See 04/21/2010 REVIEW OF SYSTEMS: PAIN ASSESSMENT: Negative for pain, history of chronic pain, or current treatment for a chronic pain condition. GENERAL: No weight loss, malaise or fevers RESPIRATORY: Negative for cough, hemoptysis, wheezing, COPD, dyspnea or shortness of breath CARDIOVASCULAR: Negative for chest pain, leg swelling, hypertension, CHF or palpitations GI: No nausea, vomiting, or diarrhea : No history of dysuria, frequency or incontinence MORNING NANNY: Negative for abnormal vaginal bleeding, abnormal vaginal discharge PHYSICAL FINDINGS OF NOTE: General - Normal, healthy, cooperative, in no acute distress Able to interact verbally by video conference Psych - ORIENTATION: normal to time place, person and situation Mood/Affect: AFFECT AND MOOD: Normal Head/Neuro - Normal size and shape Facial appearance normal Pulmonary - respiratory effort normal Cardiovascular - patient describes extremities normal, warm, no cyanosis,no clubbing, and no edema Abdominal - Not performed Skin - abnormal lesions not visualized Motor - patient seen sitting with Normal appearing strength and coordination Anorectal exam - Not Performed Assessment/Plan (K76.0) Fatty liver (primary encounter diagnosis) 1. Fatty liver - Adhering to GF, dairy free diet. Working on lifestyle changes, mild weight loss - Encouraged Mediterranean diet - Avoid NSAIDs - Immune to Hep A/B - Repeat fibroscan, LFTs in 6 mos, will order next OV I spent a total of 10 minutes on the date of the service which included preparing to see the patient, [id number] patient care, completing clinical documentation, obtaining and/or reviewing separately obtained history, performing a medically appropriate examination, counseling and educating the patient/family/caregiver, ordering medications, tests, or procedures, communicating with other HCPs (not separately reported), independently interpreting results (not separately reported), communicating results to the patient/family/caregiver, and care coordination (not separately reported). Selene Lindsey PA-C December 02, 2023 8:34 AM documented in this encounter [facility] 09-15-2023 History of Present illness Narrative 09/15/2023 Patient presents with: Cough: Congestion, body aches & sore throat x 4 days; + COVID at home test 08/30 with onset same day SUBJECTIVE: This is a 53 year old that is here today for Above Complaints. Had COVID-19 with symptoms starting on 08/30. Reports symptoms resolved. Tuesday developed cough, sinus congestion, body aches, and sore throat. Has been taking dayquil which helps with symptoms.Denies fevers, chills, rhinorrhea, headaches, SOB, dyspnea, nausea vomiting or diarrhea PAST MEDICAL HISTORY Diagnosis Date ADD (attention deficit disorder) Fatty liver 05/2023 Personal history of malignant melanoma of skin age 36 [place], follows regularly, Independent Driver Ulcerative proctitis (HCC) ALLERGIES Wellbutrin [Bupropion Hcl] MEDICATIONS Current Outpatient Medications Medication Sig MULTIVITAMIN ORAL Take by mouth. No current facility-administered medications for this visit. Facility-Administered Medications Ordered in Other Visits Medication Dose Route Frequency lidocaine (PF) 10 mg/mL (1 %) 1-2 mg injection (XYLOCAINE) 0.1-0.2 mL INTRADERMAL PRN lactated ringers iv infusion 30 mL/hr INTRAVENOUS CONTINUOUS Medications and allergies reviewed by this provider. SOCIAL HISTORY Social History Tobacco Use Smoking status: Never Smokeless tobacco: Never Vaping Use Vaping Use: Never used Substance Use Topics Alcohol use: Yes Comment: rare Drug use: No REVIEW OF SYSTEMS All other reviewed and negative other than HPI. OBJECTIVE: BP 110/86 Pulse 97 Temp 36.9 C (98.5 F) (Right Tympanic) Resp 16 Wt 72.8 kg (160 lb 9.6 oz) LMP 10/23/2018 (Exact Date) SpO2 99% BMI 26.73 kg/m . Vital signs reviewed by this provider. APPEARANCE Well appearing, alert, in no acute distress, well-hydrated, well nourished. EYES conjunctiva and sclera normal. EARS External ears normal, canals clear NOSE/SINUS negative findings: no sinus tenderness THROAT normal, no erythema NECK Supple, no adenopathy HEART RRR with normal S1 and S2, no murmurs, no gallops, no JVD appreciated LUNG clear to auscultation. NO wheezes, rhonchi or rales SKIN Skin color, texture, turgor normal, no suspicious rashes or lesions to exposed skin Shingrix Vaccine(1 of 2) Never done Covid-19 Vaccine(2022-) due on 06/10/2023 Mammogram Screening due on 12/23/2023 Diabetes Screening due on 04/29/2026 DTaP,Tdap,Td Vaccine(2 - Td or Tdap) due on 07/04/2027 Pap Testing due on 12/23/2027 HPV Testing due on 12/23/2027 Lipid Screening due on 04/29/2028 Colorectal Cancer Screening due on 09/09/2028 Influenza Vaccine Completed Depression Assessment Completed Hepatitis C Screening Completed HIV Screening Completed ASSESSMENT/PLAN: 1. Upper respiratory infection, viral - ICD9: 465.9, ICD10: J06.9 - Discussed viral etiology and rationale for treatment. - Symptomatic treatment with prn analgesia - Supportive care with fluids and rest - The patient may also use OTC decongestants prn, OTC cough and cold meds as needed, warm salt water gargles, throat lozenges and/or OTC throat spray as needed, and nasal saline gtts and suction prn. - Follow up in 3-5 days if symptoms persist or sooner if worsening of symptoms Maite Villa APRN.VIDEO GAME ENGINEER Prescription instructions reviewed with patient as applicable. Patient advised if symptoms do not improve or if symptoms worsen sooner, to contact their primary care physician. Potential red flag symptoms discussed with the patient. Reviewed appropriate action plan to take if red flag symptoms occur. Patient agreeable to treatment plan. I spent a total of 20 minutes on the date of the service which included preparing to see the patient, [id number] patient care, completing clinical documentation, obtaining and/or reviewing separately obtained history, performing a medically appropriate examination, counseling and educating the patient/family/caregiver, and ordering medications, tests, or procedures. documented in this encounter [facility] 09-09-2023 Nurse Note Patient passing air. [facility] 09-09-[address] Humble Aly spoke with patient and at bedside. [facility] 09-09-2023 Nurse Note Patient passing air. Dr Humble Aly spoke with patient and at bedside. documented in this encounter [facility] 08-18-2023 Instructions Selene Lindsey PA-C - 08/18/2023 10:33 AM EST Images from the original note were not included. Bowel Preparation Instructions for: Miralax-Gatorade Preparations IF YOU DO NOT FOLLOW THESE DIRECTIONS, YOUR COLONOSCOPY WILL BE CANCELLED. [employer] Instructions: Your bowel must be empty so that your doctor can clearly view your colon. Follow all of the instructions in this handout EXACTLY as they are written. Do NOT eat any solid food the ENTIRE day before your colonoscopy. Buy your bowel preparation at least 5 days before your colonoscopy. Four (4) Dulcolax laxative tablets containing 5mg of bisacodyl each (NOT Dulcolax stool softener) One (1) 8.3oz. bottle Miralax (238 grams) or generic equivalent 2 x 32oz. Bottles of Gatorade (NOT RED) Diabetic Patients: Use G2 (Gatorade 2) TRANSPORTATION on the Day of Your Exam A responsible adult MUST be present with you at Check In prior to your colonoscopy and REMAIN in the endoscopy area until you are discharged. You are NOT ALLOWED to drive, take a taxi or bus, or leave the Endoscopy Center ALONE. If you do not have a responsible lyft driver (family member or friend) with you to take you home, your exam cannot be done with sedation and will be cancelled. Please bring a list of all of your current medications, including any [id number] medications with you. Medications If you take insulin, diabetic medications or blood thinners such as Coumadin (warfarin), Plavix (clopidogrel), Ticlid (ticlopidine hydrochloride), Agrylin (anagrelide), Xarelto (Rivaroxaban), Pradaxa (Dabigatran), Eliquis (Apixaban), and Effient (Prasugrel). You MUST call the doctors who orders those medicines for instructions on altering the dosage before your colonoscopy. All other medications should be taken the day of the exam with a sip of water including ASPIRIN. Five (5) Days Before Your Colonoscopy Do NOT take medicines that stop diarrhea - such as Imodium, Kaopectate, or Pepto Bismol. Do NOT take fiber supplements - such as Metamucil, Citrucel, or Perdiem. Do NOT take products that contain iron - such as multi-vitamins (the label lists what is in the products). Three (3) Days Before Your Colonoscopy Do NOT eat high-fiber foods - such as popcorn, beans, seeds (flax, sunflower, quinoa), multigrain bread, nuts, salad/vegetables, or fresh and dried fruit. 1 Bowel Preparation Instructions for: Miralax-Gatorade Preparations One (1) Day Before Your Colonoscopy Only drink clear liquids the ENTIRE DAY before your colonoscopy. Do NOT eat any solid foods. Drink at least 8 ounces of clear liquids every hour after waking up. The clear liquids you can drink include: Clear Liquid (NO RED LIQUIDS) DO NOT DRINK Gatorade, Pedialyte or Powerade Clear broth or bouillon Coffee or tea (no milk or non-dairy creamer) Carbonated and non-carbonated soft drinks Kirit-Aid or other fruit flavored drinks Strained fruit juices (no pulp) Jell-O, popsicles, hard candy Water Alcohol Milk or non-dairy creamers Noodles or vegetables in soup Juice with pulp Liquid you cannot see through Do not use tobacco/vaping products Mix 1/2 of Miralax bottle (119 grams) in each 32 ounces of Gatorade bottle until dissolved. Keep cool in the refrigerator. DO NOT ADD ICE. The bowel preparation solution will be consumed in two parts. Part 1 5:00 PM - Evening before your colonoscopy Take 4 Dulcolax tablets. 6 PM - Evening before your colonoscopy Drink 32 oz. of the mixed solution. Drink an 8 oz. glass of bowel preparation every 15 minutes for a total of 4 glasses. Fifteen (15) minutes later, drink an 8 oz. glass of of clear liquids every 15 minutes for a total of 2 glasses. You may continue to drink clear liquids till midnight. Part 2 On the day of your colonoscopy you may drink clear liquids up to (three) 3 hours prior to procedure. 4 1/2 hours before your colonoscopy Take another 32 oz. bottle of mixed solution. Drink an 8 oz. glass of bowel prep every 15 minutes for a total of 4 glasses. Fifteen (15) minutes later, drink an 8 oz. glass of clear liquids every 15 minutes for a total of 2 glasses. You may continue to drink clear liquids up to (three) 3 hours before your exam. 2 09/2019 documented in this encounter [facility] 08-18-2023 History of Present illness Narrative CHIEF COMPLAINT: Patient presents with: Elevated LFT's : Fatty Liver, constipation HPI: Ny Colon is a 53 year old female who presents for Elevated LFT's (Fatty Liver, constipation ). Lost 21 lbs since dx of fatty liver 05/2023. Gave up dairy, eating GF diet. Was taking Advil daily 800 mg due to knee injury 02/2023, stopped after initial findings of elevated LFTs 04/2023. Bms are 1-2x per week, attributes this to her fasting, no blood. Denies EtOH, family hx of GI related cancers, regular GERD sx. Family hx of liver disease in brother (fatty liver) VCTE 06/2023 Impression The reading was adequate. FS=3.5 kPA. The CAP score is 327 and corresponds to steatosis grade of S3. This reading corresponds: A 97% chance of stage 0-2 fibrosis A 3% chance of stage 3-4 fibrosis (advanced fibrosis) A <1% chance of stage 4 fibrosis (cirrhosis). RUQ US 05/2023 IMPRESSION: Hepatic steatosis with heterogeneous liver parenchyma. Colonoscopy 2016 CONVERTED FINAL DIAGNOSIS 1. Ileocecal valve, biopsy (A) - Colonic mucosa with no significant diagnostic alteration. 2. Rectum, biopsy (B) - Chronic active colitis with rare crypt rupture granuloma, negative for dysplasia. See comment. DSA/rw 05/13/2016 Component Latest Ref Rng & Units 04/29/2023 05/27/2023 WBC 3.70 - 11.00 k/uL 5.47 RBC 3.90 - 5.20 m/uL 4.84 Hemoglobin 11.5 - 15.5 g/dL 14.4 Hematocrit 36.0 - 46.0 % 43.9 MCV 80.0 - 100.0 fL 90.7 MCH 26.0 - 34.0 pg 29.8 MCHC 30.5 - 36.0 g/dL 32.8 RDW-CV 11.5 - 15.0 % 13.1 Platelet Count 150 - 400 k/uL 241 MPV 9.0 - 12.7 fL 11.3 Neut% % 60.1 Abs Neut (ANC) 1.45 - 7.50 k/uL 3.29 Lymph% % 28.7 Abs Lymph 1.00 - 4.00 k/uL 1.57 [place]% % 7.5 Abs [place] <0.87 k/uL 0.41 Eosin% % 2.6 Abs Eosin <0.46 k/uL 0.14 Baso% % 0.9 Abs Baso <0.11 k/uL 0.05 Immature Gran % % 0.2 IMMATURE GRANS (ABS) <0.10 k/uL <0.03 NRBC /100 WBC 0.0 Absolute nRBC <0.01 k/uL <0.01 DTYPE Auto Protein, Total 6.3 - 8.0 g/dL 6.7 7.2 Albumin 3.9 - 4.9 g/dL 4.7 4.4 Calcium 8.5 - 10.2 mg/dL 9.5 Bilirubin, Total 0.2 - 1.3 mg/dL 0.3 0.3 Alkaline Phosphatase 34 - 123 U/L 69 67 AST 13 - 35 U/L 32 35 ALT 7 - 38 U/L 51 (H) 61 (H) Glucose 74 - 99 mg/dL 95 BUN 7 - 21 mg/dL 17 Creatinine 0.58 - 0.96 mg/dL 0.72 Sodium 136 - 144 mmol/L 143 Potassium 3.7 - 5.1 mmol/L 4.4 Chloride 97 - 105 mmol/L 109 (H) CO2 22 - 30 mmol/L 23 Anion Gap 9 - 18 mmol/L 11 eGFR >=60 mL/min/1.73m 101 Bilirubin, Conjug <0.2 mg/dL <0.2 Iron 41 - 186 ug/dL 88 TIBC 232 - 386 ug/dL 334 Transferrin Saturation 15.0 - 57.0 % 26.3 Hemoglobin A1C 4.3 - 5.6 % 5.1 Estimated Average Glucose mg/dL 100 TSH 0.270 - 4.200 mIU/L 0.607 Vitamin D 25 Hydroxy 31.0 - 80.0 ng/mL 66.9 Vitamin B12 232 - 1,245 pg/mL 496 Record Review: [facility] / Outside records reviewed. PAST MEDICAL HISTORY Diagnosis Date ADD (attention deficit disorder) Fatty liver 05/2023 Personal history of malignant melanoma of skin age 36 Krist[place], follows regularly, Independent Driver Ulcerative proctitis (HCC) PAST SURGICAL HISTORY Procedure Laterality Date DELIVERY ONLY 1998, 2000 , low cervical COLONOSCOPY 05/11/16 proctitis, ulcerations PAST SURGICAL HISTORY OF 09/14 Dr. Flowers, [facility]; right ankle mole remoal-path + melanoma in situ Allergies: ALLERGIES Allergen Reactions Wellbutrin [Bupropi* Rash See 04/21/2010 Medications: MULTIVITAMIN ORAL Take by mouth. 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 All other systems reviewed and are negative. Are you taking any blood thinners? No Physical Examination: BP 116/74 Pulse 60 Ht 5' 5.75 (1.67m) Wt 157 lb 1.6 oz (71.3kg) LMP 10/23/2018 BMI 25.55 kg/(m^2). Physical Exam Constitutional: General: She is not in acute distress. Appearance: Normal appearance. She is normal weight. She is not ill-appearing, toxic-appearing or diaphoretic. HENT: Head: Normocephalic and atraumatic. Nose: Nose normal. Eyes: General: No scleral icterus. Right eye: No discharge. Left eye: No discharge. Extraocular Movements: Extraocular movements intact. Conjunctiva/sclera: Conjunctivae normal. Pupils: Pupils are equal, round, and reactive to light. Cardiovascular: Rate and Rhythm: Normal rate and regular rhythm. Pulses: Normal pulses. Heart sounds: Normal heart sounds. No murmur heard. No friction rub. No gallop. Pulmonary: Effort: No respiratory distress. Breath sounds: Normal breath sounds. No stridor. No wheezing, rhonchi or rales. Chest: Chest wall: No tenderness. Abdominal: General: Abdomen is flat. Bowel sounds are normal. There is no distension. Palpations: Abdomen is soft. There is no mass. Tenderness: There is no abdominal tenderness. There is no right CVA tenderness, left CVA tenderness, guarding or rebound. Hernia: No hernia is present. Musculoskeletal: General: Normal range of motion. Cervical back: Normal range of motion and neck supple. Skin: General: Skin is warm and dry. Neurological: General: No focal deficit present. Mental Status: She is alert and oriented to person, place, and time. Psychiatric: Mood and Affect: Mood normal. Behavior: Behavior normal. Assessment/Plan (K76.0) Fatty liver (primary encounter diagnosis) (K59.09) Other constipation (Z87.19) History of proctitis 1. Fatty liver - HEPATIC FUNCTION PNL; Future - FERRITIN BLD; Future - HEPATITIS A ANTIBODY, IGG; Future - HEP B SURF AB; Future - HEP B SURF AG SCRN; Future - HEP B CORE AB TOTAL; Future - Discussed fatty liver in detail and risk for cirrhosis - Consuming GF/dairy diet, encouraged Mediterranean diet as tolerated - Intentionally losing weight successfully - Repeat fibroscan 2023 2. Other constipation - COLONOSCOPY DIAGNOSTIC; Future - Continue daily fiber supplement - Continue plenty of fluid intake - H/O UC on last colon 2015, did not take recommended Canasa suppository due to issues with cost 3. History of proctitis - COLONOSCOPY DIAGNOSTIC; Future I spent a total of 20 minutes on the date of the service which included preparing to see the patient, [id number] patient care, completing clinical documentation, obtaining and/or reviewing separately obtained history, performing a medically appropriate examination, counseling and educating the patient/family/caregiver, ordering medications, tests, or procedures, communicating with other HCPs (not separately reported), independently interpreting results (not separately reported), communicating results to the patient/family/caregiver, and care coordination (not separately reported). Selene Lindsey PA-C August 18, 2023 10:37 AM documented in this encounter [facility] 06-27-2023 Miscellaneous Notes TC to patient who verbalized understanding of providers message below. Patient states that her appointment with GI in August is in regards to her liver and she will make sure to follow through with appointment. No questions at this time. VENICE Rodriges Please call patient and let her know that fibroscan results show a likely > 66% steatosis of liver. I would like her to follow up with hepatology --- which I think is already scheduled for August -- please make sure this is what the GI appointment is for. Thank you, Ny Leblanc APRN.JATIN documented in this encounter [facility] 06-24-2023 History of Present illness Narrative Patient fasting for 3 hours:Yes Fibroscan was performed on June 24, 2023, by Selena Mccabe LPN and results are interpreted by Reshma Rodriguez APRN, CNP Diagnosis: Fatty liver Please refer to get images report for individual readings Number of readings: 10 IQR %: 9 E (kpa): 3.5 CAP: 327 Impression The reading was adequate. FS=3.5 kPA. The CAP score is 327 and corresponds to steatosis grade of S3. This reading corresponds: A 97% chance of stage 0-2 fibrosis A 3% chance of stage 3-4 fibrosis (advanced fibrosis) A <1% chance of stage 4 fibrosis (cirrhosis). Reshma Rodriguez APRN.CNP NAFLD Fibroscan Fibrosis Risk <7 kPA = F0-F2 97%, F3+F4 3%, F4 <1% <10 kPA = F0-F2 91%, F3+F4 9%, F4 1.3% 10-15 kPA = F0-F2 56%, F3+F4 43%, F4 14% >15 kPA = F0-F2 26%, F3+F4 74%, F4 46% Grade CAP value up to 237 dB/M corresponds to S0 (< 10 % Fat) CAP value between (238 - 258 dB/M) corresponds to S1 (>/= 11 % Fat) CAP value between (259 - 289 dB/M) corresponds to S2 (>/= 33 % Fat) CAP value > 290dB/M corresponds to S3 (>/= 67 % Fat) stage 0 ( S0:< 10 % steatosis) stage 1 (>/= S1: 11%-33% steatosis) stage 2 (>/= S2: 34%-66% steatosis) stage 3 (>/= S3: > 66% steatosis) Reference Farhan Y, Jose Manuel Q, Farhan T, Lizz J, Farhan H, Jass T. Controlled attenuation parameter for assessment of hepatic steatosis grades: a diagnostic meta-analysis. Int J Clin Exp Med. 2015 Jul 15;8(10):99548-83. PMID: 80094925; PMCID: [id number]. Tejinder M, Sheyla TERESA, Ramonr-Gallito M, Chico F, Cornelio J, Anthony O, Luciana F, Emmy M, Pepe G, Rizwan A, Ivonne E, Moon L, Darcie G, Liane A, Thomas U, Simpson S, Dejuan P, Letio V, de Antonette V, Pinlenore M, Meng SOLIS. Refining the Baveno elastography criteria for the definition of compensated advanced chronic liver disease. J Hepatol. 2020;74(5):0534-8543. doi: 10.1016/j.jhep.2020.11.050. Epub 2019Sep 17. PMID: 64511153. documented in this encounter [facility] 06-10-2023 Miscellaneous Notes Pt. informed via My Chart. GI doctor will manage and dx liver conditions as well. Hepatology is a branch under GI. Ny Leblanc APRN.VIDEO GAME ENGINEER MC message turned into TE. CM Hi, When I received the recommendations yesterday from my liver ultrasound test results, you had said to see a calender tender. My was wondering why I would need to see a GI Dr for a liver issue? He was wanting to know your thoughts and why you would recommend this or if there were other things you were looking for? Wanted more information. Thank you very much! Jyoti Sarah MA documented in this encounter [facility] 06-10-2023 Miscellaneous Notes MC message turned into TE. Suzanne Sarah MA documented in this encounter [facility] 06-09-2023 Miscellaneous Notes Spoke with patient. Given message from provider's office. Patient verbalizes understanding. She declines further testing/GASTRO consult at this time. She states she will try working on her diet to see if this will help. Xenia Montgomery RN Phoned patient and left message to return call and ask to speak to triage nurse for results. Please inform patient that her RUQ US shows that there are fatty liver changes occurring. Can consider further testing with elastography vibration testing which helps us to understand if there is any risk of fibrosis occurring due to the fatty liver changes. Need for her to follow a low cholesterol diet. Can also consider seeing Volunteer Fire Fighter for opinion as well. Td Vick DO documented in this encounter [facility] 06-08-2023 History of Present illness Narrative Radiology Service Progress Note PATIENT NAME: Ny Colon DATE OF SERVICE: June 08, 2023 TIME: 11:01 AM PATIENT IDENTITY VERIFICATION COMPLETED USING TWO (2) IDENTIFIERS: Name and Date of confirmed by patient verbally. FALL SCREENING: Has the patient had 2 falls in the last year or 1 fall with injury or currently using an Ambulatory Assistive Device (Walker, Cane, Wheelchair, Crutches, etc.)? No PATIENT GENDER DATA: Female. status: : No status: NO. PATIENT RELEVANT IMPLANT DATA REVIEWED: Not Applicable RADIOLOGY DEPARTMENT: Ultrasound PERIPHERAL IV DATA: Not applicable SIGNED BY: Francy Floyd RDMS RVT June 08, 2023 11:01 AM documented in this encounter [facility] 05-30-2023 Miscellaneous Notes Patient notified and verbalized understanding. She will call into schedule US. Jacki Hoyt MA Please inform patient that her labs show that her ALT liver enzyme is still slightly high. Other liver labs are normal. Can consider checking RUQ US to see anatomy of the liver. My concerns would be fatty liver changes. This is ordered Td Vick DO documented in this encounter [facility] 05-06-2023 Miscellaneous Notes Pt. informed. The Advil may have affected CRP or WSR labs but wouldn't affect any of the results from the anti woody panel or RF or CCP levels Td Vick DO Spoke with pt gave information provided. Pt voices understanding. She is asking if the 1600 mg of Advil she had been taking that month prior could have any correlation to her inflammatory labs being normal? Please advise. Please call patient and let her know that her lab results show that her iron levels are low normal. Make sure she is eating more iron rich foods in her diet. Also her inflammation labs and specific inflammatory arthritis / rheum arthritis labs are all normal. Her ALT liver enzyme is mildly high at 51. Other liver enzyme levels are normal. Would recommend repeat LFTs in 2-4 weeks Td Vick DO documented in this encounter [facility] 12-30-2022 Miscellaneous Notes This was addressed in TE on 12/27. Closing this encounter. Ny Leblanc APRN.JATIN Please see pt message and TE from yesterday Christina Holiday documented in this encounter [facility] 12-27-2022 Miscellaneous Notes Pt informed, verbalized understanding. Christina Holiday Thanks please notify patient that osteopenia found on BMD BMD is showing some beginning bone mass loss (osteopenia), which may increase the risk of insufficiency fractures. I suggest 1200 mg of Calcium carbonate or citrate as a supplement, into 2 doses daily as well as at least 1000 units of Vitamin D3 daily. Weight bearing exercise, if not already doing, and f/u exam in 2 years for bone density. Td Vick DO Called radiologist this morning and reports bone scan results have been corrected and should say osteopenia rather than osteoporosis Christina Limon Please see provider message below Christina Limon MA Please clarify results of patient's bone density with the reading radiologist. Appears to just be in osteopenia, not osteoporosis Td Vick DO documented in this encounter [facility] 12-22-2022 Miscellaneous Notes December 24, 2022 PID: [id number] Ny Colon [address] [place] [address] Dear Ms. Colon, We are pleased to inform you that the results of your recent breast imaging exam on 12/22/2022 are normal. Your mammogram demonstrates that you have dense breast tissue, which could hide abnormalities. Dense breast tissue, in and of itself, is a relatively common condition. Therefore, this information is not provided to cause undue concern; rather, it is to raise your awareness and promote discussion with your health care provider regarding the presence of dense breast tissue in addition to other risk factors. Early detection of cancer is very important. We also understand recommendations regarding breast cancer screening are controversial. Please discuss with your primary care provider which strategy is best for you and whether a mammogram is right for you. Your imaging studies and report will be kept on file at [facility] as part of your permanent medical record and are available for your continuing care. Thank you for allowing us to help in meeting your health care needs. Sincerely, Dr. Escalante Interpreting Radiologist [facility] (Normal over 40) documented in this encounter [facility] 12-22-2022 History of Present illness Narrative Flap Presser offered: Patient declinesJacob Montes is a 52 year old who presents for an annual gynecologic exam without complaints. Postmenopausal: Yes since 2018 HRT use: No. Last Pap: 09/26/2017 normal HPV: 09/20/2017 negative History of abnormal pap: No Last mammogram: 2022 Pending History of abnormal mammogram: No Sexually active: Yes History of STDS: None Time with current partner: 28 years Pain with intercourse: No Postcoital bleeding: No Hot flashes: No Night sweats: No Vaginal dryness: No Mood swings: No Insomnia: No Exercise: 3 times a week for 60 minutes. Type: weight lifting and cardio class Diet: no dairy, gluten free Seatbelt use: Yes OB History T2 L3 SAB1 IAB0 Ectopic0 Multiple1 Live Births0 Mixer Diamond Powder History LMP: 10/23/2018 (Exact Date), Postmenopausal Age at Menarche: Age at First : Age at Menopause: Mixer Diamond Powder History Comments: Sexual Activity: Yes; Male; no tatoos, transfusion, std's Contraception: Vasectomy PAST MEDICAL HISTORY Diagnosis Date ADD (attention deficit disorder) Personal history of malignant melanoma of skin age 36 [place], follows regularly, Independent Driver Ulcerative proctitis (HCC) PAST SURGICAL HISTORY Procedure Laterality Date DELIVERY ONLY 1998, 2000 , low cervical COLONOSCOPY 05/11/16 proctitis, ulcerations PAST SURGICAL HISTORY OF 09/14 Dr. Flowers, [facility]; right ankle mole remoal-path + melanoma in situ FAMILY HISTORY Problem Relation Age of Onset Hypertension Mother late 30's Thyroid Mother unknown type Psychiatry Mother Allergies Father Hypertension Father Psychiatry Father Thyroid Sister Hypertension Brother Hypertension Brother other (thyroidectom) Brother Stroke Maternal Grandmother later in life (70's) Hypertension Maternal Grandmother Hypertension Maternal Aunt age unknown Hypertension Maternal Aunt age unknown Thyroid Maternal Aunt Diabetes Other none Coronary Artery Disease Other none Colon Cancer Other none SOCIAL HISTORY Social History Tobacco Use Smoking status: Never Smokeless tobacco: Never Vaping Use Vaping Use: Never used Substance Use Topics Alcohol use: Yes Comment: rare Drug use: No REVIEW OF SYSTEMS Abdomen: No abdominal pain, nausea, vomiting, diarrhea, or constipation. No bloating, early satiety, indigestion, or increased flatulence. Bladder: No dysuria, gross hematuria, urinary frequency, urinary urgency, or incontinence Breast: No breast lumps, nipple d/c, overlying skin changes, redness or skin retraction Allergies and current medication updated:Yes EXAM: BP 110/72 Ht 5' 5.75 (1.67m) Wt 170 lb 12.8 oz (77.5kg) LMP 10/23/2018 BMI 27.78 kg/(m^2). GENERAL: pleasant, female in no apparent distress HEENT: Normocephalic, atraumatic, mucus membranes moist, and no lesions NECK: Supple, full range of motion, no adenopathy, and thyroid normal DERMATOLOGY: Normal, without lesions, non-icteric, and non-hirsute BREAST: soft, non-tender, symmetric, no dominant mass, normal nipple-areolar complex, no lymphadenopathy, and no nipple discharge CHEST: Normal inspiratory effort ABDOMEN: soft, non-tender, and no masses PELVIC: external genitalia normal, normal Bartholin's glands, urethra, [place]'s glands, no vulvar lesions, no cervical lesions, good vaginal support, physiologic discharge present, normal appearing perineal body and perianal region, cervical polyp noted, patient declines removal at this time. BIMANUAL: uterus normal size, shape and consistency, no adnexal masses, and non-tender RECTOVAGINAL: Deferred. NEURO: alert and oriented x3,exam grossly non-focal EXTREMITIES: normal ASSESSMENT/PLAN: 1. Encounter for gynecological examination (general) (routine) without abnormal findings - ICD9: V72.31, ICD10: Z01.419 (primary diagnosis) - Completed pap test and breast exam - Completed pelvic and breast exam - check HPV - Set up for mammogram, yearly mammogram recommended - Encouraged monthly BSE - Increase calcium intake with supplements or by diet (goal of 2068-9802 mg/day - Follow up for annual exam in one year. - PAP TEST 2. Encounter for screening for human papillomavirus (HPV) - ICD9: V73.81, ICD10: Z11.51 - PAP TEST 3. Pap smear for cervical cancer screening - ICD9: V76.2, ICD10: Z12.4 - Completed pap test and breast exam - Completed pelvic and breast exam - check HPV - Set up for mammogram, yearly mammogram recommended - Encouraged monthly BSE - Increase calcium intake with supplements or by diet (goal of 8700-4900 mg/day - Follow up for annual exam in one year. - PAP TEST 4. Encounter for screening mammogram for breast cancer - ICD9: V76.12, ICD10: Z12.31 - Completed pap test and breast exam - Completed pelvic and breast exam - check HPV - Set up for mammogram, yearly mammogram recommended - Encouraged monthly BSE - Follow up for annual exam in one year. - BALDEMAR SCREENING W GIOVANY 5. Cervical polyp - ICD9: 622.7, ICD10: N84.1 - Discussed removal, patient declines at this time. - Discussed symptoms associated with cervical polyp - Patient agreeable to come at later date for removal 1) Health maintenance: Pap done with HPV. Mammogram up to date Nutrition, exercise and routine health maintenance exams reviewed. Calcium/Vitamin D supplementation information provided. 2) Follow up one year or sooner as needed Hugo Christianson, student KIRILL Wong APRN.CNM documented in this encounter [facility] 11-29-2022 History of Present illness Narrative This note was created using GroSocial[employer]. Subjective Ny Colon is a 52 year old female. HPI 52-year-old female presents for right ear pain. Patient states that last week she went snorkeling and thought she might of gotten some water in her ear. She has been using [id number] drops, but is still having pain in the right ear. States she feels like there is pressure and pain in the ear. She has not really had any drainage from the ear. No purulent drainage. No fevers. No cough. She does report some nasal congestion PAST MEDICAL HISTORY Diagnosis Date ADD (attention deficit disorder) Personal history of malignant melanoma of skin age 36 [place], follows regularly, Independent Driver Ulcerative proctitis (HCC) PAST SURGICAL HISTORY Procedure Laterality Date DELIVERY ONLY 1998, 2000 , low cervical COLONOSCOPY 05/11/16 proctitis, ulcerations PAST SURGICAL HISTORY OF 09/14 Dr. Flowers, [facility]; right ankle mole remoal-path + melanoma in situ ALLERGIES Wellbutrin [Bupropion Hcl] MEDICATIONS MULTIVITAMIN ORAL Take by mouth. amoxicillin (AMOXIL) 875 mg tablet Take 1 tablet by mouth twice daily for 7 days. dextroamphetamine-amphetamine (ADDERALL) 5 mg tablet Take 1 tablet in the afternoon as needed for continued productivity. lisdexamfetamine (VYVANSE) 20 mg capsule Take 1 capsule by mouth once daily for 30 days. Fluticasone Propionate 50 mcg/actuation diskus inhaler Inhale 1 Puff as instructed twice daily. (Patient not taking: Reported on 11/29/2022) albuterol HFA (PROVENTIL HFA, VENTOLIN HFA) 90 mcg/actuation inhaler Inhale 2 Puffs as instructed every 6 hours as needed for wheezing/shortness of breath. (Patient not taking: Reported on 11/29/2022) hydrOXYzine HCl (ATARAX) 25 mg tablet Take 1 tablet by mouth three times daily as needed for anxiety. (Patient not taking: Reported on 11/29/2022) FAMILY HISTORY Problem Relation Age of Onset Hypertension Mother late 30's Thyroid Mother unknown type Psychiatry Mother Allergies Father Hypertension Father Psychiatry Father Thyroid Sister Hypertension Brother Hypertension Brother other (thyroidectom) Brother Stroke Maternal Grandmother later in life (70's) Hypertension Maternal Grandmother Hypertension Maternal Aunt age unknown Hypertension Maternal Aunt age unknown Thyroid Maternal Aunt Diabetes Other none Coronary Artery Disease Other none Colon Cancer Other none Social History Tobacco Use Smoking status: Never Smokeless tobacco: Never Vaping Use Vaping Use: Never used Substance Use Topics Alcohol use: Yes Comment: rare Drug use: No Review of Systems Constitutional: Negative for chills and fever. HENT: Positive for congestion and ear pain. Negative for sore throat. Respiratory: Negative for cough and shortness of breath. Cardiovascular: Negative for chest pain. Gastrointestinal: Negative for diarrhea and vomiting. Objective BP 130/86 Pulse 96 Temp 37.3 C (99.1 F) Resp 18 Wt 78.2 kg (172 lb 6.4 oz) LMP 10/23/2018 (Exact Date) SpO2 98% BMI 27.83 kg/m Physical Exam Vitals and nursing note reviewed. Constitutional: General: She is not in acute distress. Appearance: Normal appearance. She is not toxic-appearing. HENT: Right Ear: Ear canal normal. No drainage. Tympanic membrane is erythematous. Left Ear: Tympanic membrane and ear canal normal. Nose: Nose normal. Mouth/Throat: Mouth: Mucous membranes are moist. Pharynx: No oropharyngeal exudate or posterior oropharyngeal erythema. Eyes: Conjunctiva/sclera: Conjunctivae normal. Cardiovascular: Rate and Rhythm: Normal rate and regular rhythm. Pulmonary: Effort: Pulmonary effort is normal. Breath sounds: Normal breath sounds. Neurological: Mental Status: She is alert. Assessment and Plan ASSESSMENT/PLAN: 1. Acute otitis media, right - ICD9: 382.9, ICD10: H66.91 - Will begin treatment with Amoxicillin for 7 days - Supportive care with plenty of fluids, rest, and analgesia prn. Diagnosis and treatment plan were discussed and questions were answered to the patient's satisfaction. Pt acknowledged understanding of concepts and follow up plan. Specific signs and symptoms that would indicate the need for higher level of care were discussed in detail warranting prompt ER evaluation. MARIO Hill documented in this encounter [facility] 11-29-2022 Miscellaneous Notes Patient reports she went snorkling in [facility] on Tue. Last night noted fluid drainage out of her right ear, and blowing nose noted blood in mucous. No fever. No ear pain. Hearing is muffled in that ear. Patient agreeable to EC for evaluation. documented in this encounter [facility] 07-01-2022 Miscellaneous Notes The following approved medication requests have been transmitted electronically. Requested Prescriptions Signed Prescriptions Disp Refills dextroamphetamine-amphetamine (ADDERALL) 5 mg tablet 30 tablet 0 Sig: Take 1 tablet in the afternoon as needed for continued productivity. Ny Hurst APRN.VIDEO GAME ENGINEER documented in this encounter [facility] 06-30-2022 Miscellaneous Notes Refilled 06/30/22 to DAVID King. Pt notified via [facility] to check with pharmacy. Thelma Sinclair Ma documented in this encounter [facility] 06-30-2022 Miscellaneous Notes PDMP website checked and validated. All prescriptions have been APPROPRIATELY filled. No suspicious activity was identified. 06/30/2022 by Ny Hurst APRN.CNP The following approved medication requests have been transmitted electronically. Requested Prescriptions Signed Prescriptions Disp Refills lisdexamfetamine (VYVANSE) 20 mg capsule 30 capsule 0 Sig: Take 1 capsule by mouth once daily for 30 days. Authorizing Provider: NY HURST APRN.CNP Patient phones requesting refills as follows: Requested Prescriptions Pending Prescriptions Disp Refills lisdexamfetamine (VYVANSE) 20 mg capsule 30 capsule 0 Sig: Take 1 capsule by mouth once daily for 30 days. ALEJANDRA 06/07/22 (virtual) 04/21/22 (in person) NOV no upcoming appt Last rx written 05/24/22 #30 with 0 refills Last urine tox screen NA Please review and advise. Heri Sanches LPN documented in this encounter [facility] 06-21-2022 History of Present illness Narrative PULM FUNCTION SMARTBLOCK: Provider: Milton Camacho APRN.VIDEO GAME ENGINEER Assisting Tech: KOFFI Loera Spirometry w/BD: 1 documented in this encounter [facility] 06-07-2022 History of Present illness Narrative Radiology Service Progress Note PATIENT NAME: Ny Colon DATE OF SERVICE: June 07, 2022 TIME: 9:50 AM PATIENT IDENTITY VERIFICATION COMPLETED USING TWO (2) IDENTIFIERS: Name and Date of confirmed by patient verbally. FALL SCREENING: Has the patient had 2 falls in the last year or 1 fall with injury or currently using an Ambulatory Assistive Device (Walker, Cane, Wheelchair, Crutches, etc.)? No PATIENT GENDER DATA: Female. status: : No status: NO. PATIENT RELEVANT IMPLANT DATA REVIEWED: Yes RADIOLOGY DEPARTMENT: General X-ray: Exam(s) Completed: Chest X-Ray PERIPHERAL IV DATA: Not applicable SIGNED BY: RT Negra(R) June 07, 2022 9:50 AM documented in this encounter [facility] 06-07-2022 History of Present illness Narrative AMBULATORY TELEPHONE VISIT Ny Colon has consented to this telephone encounter. Persons Present: patient Chief Complaint/Reason: cough, chest tightness HPI: Had COVID on 03/19. Got an antibiotic-Augmentin. [place] like this improved somewhat. Still coughing. Having pressure and tightness in her chest. Worse with laying down. Coughing fits-are dry. Is not muscular. Pain is right in the middle of her chest but extending downward. No fevers. Denies SOB. Sx are not exacerbated with exertion/activity. Data Reviewed: Most recent labs and imaging results. Office notes Assessment: (R07.89) Chest tightness (primary encounter diagnosis) (R05.3) Persistent cough (R05.3, U09.9) Post-COVID chronic cough Plan: Chest xray CBC, d-dimer Concern for pneumonia vs PE vs post-covid situation May consider inhaled corticosteroid and/or prn albuterol May consider PFTs May consider CT chest Milton Camacho APRN.CNP documented in this encounter [facility] 05-24-2022 Miscellaneous Notes PDMP website checked and validated. All prescriptions have been APPROPRIATELY filled. No suspicious activity was identified. 05/24/2022 by Ny Hurst APRN.VIDEO GAME ENGINEER The following approved medication requests have been transmitted electronically. Requested Prescriptions Signed Prescriptions Disp Refills lisdexamfetamine (VYVANSE) 20 mg capsule 30 capsule 0 Sig: Take 1 capsule by mouth once daily for 30 days. Authorizing Provider: [place] HURST APRN.JATIN Patient phones requesting refills as follows: Requested Prescriptions Pending Prescriptions Disp Refills lisdexamfetamine (VYVANSE) 20 mg capsule 30 capsule 0 Sig: Take 1 capsule by mouth once daily for 30 days. ALEJANDRA-04/21/22 Labs-04/21/22 NOV-none med filled 04/21/22 ends 05/21/22 Please review and advise. Halie Irwin LPN documented in this encounter [facility] 04-23-2022 History of Present illness Narrative Radiology Service Progress Note PATIENT NAME: Ny Colon DATE OF SERVICE: April 23, 2022 TIME: 9:18 AM PATIENT IDENTITY VERIFICATION COMPLETED USING TWO (2) IDENTIFIERS: Name and Date of confirmed by patient verbally. FALL SCREENING: Has the patient had 2 falls in the last year or 1 fall with injury or currently using an Ambulatory Assistive Device (Walker, Cane, Wheelchair, Crutches, etc.)? No PATIENT GENDER DATA: Female. status: : No status: N/A PATIENT RELEVANT IMPLANT DATA REVIEWED: Not Applicable RADIOLOGY DEPARTMENT: Ultrasound PERIPHERAL IV DATA: Not applicable SIGNED BY: Francy Floyd RDMS RVT April 23, 2022 9:18 AM documented in this encounter [facility] 04-21-2022 Instructions Td Vick DO - 04/21/2022 8:19 AM EDT Vitamin B complex- consider liquid supplement, Fernando Natural foods. Bio identical hormone therapy - Dr. Murphy MORNING NANNY Can consider adding on short acting 5 mg of Adderall as needed for ADD symptoms in the afternoon if needed. Magnesium glycinate or gluconate 400-500 mg in evening. [place] supplement if interested in the evening to help with menopause Can consider buspirone or trazodone for sleep in future if hydroxyzine isn't helping documented in this encounter [facility] 04-21-2022 History of Present illness Narrative CC: Ny Colon is a 52 year old female who presents to the office for physical HPI: ADD, feels that her vyvanse dose at 30 mg a day may be too much. If I don't eat a big meal when I take it I feel jittery and anxious, when I don't take it at all I feel fatigued and not able to focus/concentrate. Has been on Adderall XR 10 mg in the past which caused her to feel irritable and emotionless. Over the last few months has also been struggling with feeling of anxiety, more irritable and overwhelmed at times. Feels she isn't able to juggle all that she needs to get done. Working 1-2 days a week as well as taking care of her adult son etc. No depressed mood. Does struggle with being able to fall asleep and stay asleep and sometimes waking up in the middle of the night and not able to fall back asleep for hours. Has been trying valerian root and has tried melatonin. Fatigue symptoms PAST MEDICAL HISTORY Diagnosis Date ADD (attention deficit disorder) Personal history of malignant melanoma of skin age 36 [place], follows regularly, Independent Driver Ulcerative proctitis (HCC) PAST SURGICAL HISTORY Procedure Laterality Date DELIVERY ONLY 1998, 2000 , low cervical COLONOSCOPY 05/11/16 proctitis, ulcerations PAST SURGICAL HISTORY OF 09/14 Dr. Flowers, [facility]; right ankle mole remoal-path + melanoma in situ Social History: Social History Tobacco Use Smoking status: Never Smoker Smokeless tobacco: Never Used Vaping Use Vaping Use: Never used Substance Use Topics Alcohol use: Yes Comment: rare Drug use: No FAMILY HISTORY Problem Relation Age of Onset Hypertension Mother late 30's Thyroid Mother unknown type Psychiatry Mother Allergies Father Hypertension Father Psychiatry Father Thyroid Sister Hypertension Brother Hypertension Brother other (thyroidectom) Brother Stroke Maternal Grandmother later in life (70's) Hypertension Maternal Grandmother Hypertension Maternal Aunt age unknown Hypertension Maternal Aunt age unknown Thyroid Maternal Aunt Diabetes Other none Coronary Artery Disease Other none Colon Cancer Other none Current Outpatient prescriptions: fexofenadine HCl (MUCINEX ALLERGY ORAL) Take by mouth. lisdexamfetamine (VYVANSE) 30 mg capsule Take 1 capsule by mouth once daily for 30 days. Do not start before December 21, 2021. lisdexamfetamine (VYVANSE) 30 mg capsule Take 1 capsule by mouth once daily for 30 days. Do not start before November 25, 2021. MULTIVITAMIN ORAL Take by mouth. lisdexamfetamine (VYVANSE) 30 mg capsule Take 1 capsule by mouth once daily for 30 days. Do not start before October 27, 2021. Allergies: ALLERGIES Allergen Reactions Wellbutrin [Bupropi* Rash See 04/21/2010 ROS: See HPI PE: 04/21/22 0742 BP: 100/60 Pulse: 80 Resp: 16 Temp: 36.7 C (98.1 F) TempSrc: Left Tympanic Weight: 75.8 kg (167 lb) Height: 166.5 cm (5' 5.55) Gen: A&O, NAD, non-toxic appearing, Pleasant, cooperative HEENT: NT/AC, PERRLA, EOMs intact b/l, nares clear and patent b/l, pharynx without erythema, exudate or lesions. Uvula midline. EACs without erythema or debris. TMs pearly peres with intact landmarks b/l. Neck: supple, No cervical LAD, mild symmetric non tender thyromegaly, no carotid bruits CV: RRR, normal S1 and S2, no murmurs, no gallops, no rubs, Pulses 2+ and symmetric in UE and LE b/l Lungs: normal respiratory effort, CTA b/l, no wheezing or rhonchi or rales Abd: soft, NT, ND, +BS, no hepatosplenomegaly MS: FROM all 4 extremities Neuro: CN II-XII intact b/l, strength 5/5 b/l UE and LE, DTRs 2/4 UE and LE, sensation intact. Skin: warm, dry, intact, No rashes or lesions on exposed skin. No edema, normal pulses ASSESSMENT/PLAN: 1. Well adult exam - ICD9: V70.0, ICD10: Z00.00 (primary diagnosis) - Counseled on healthy diet and regular exercise - Calcium intake with supplements or by diet of 1000 mg/day for under 50, 2878-7571 mg/day for 50+ - COMP METABOLIC PANEL - CBC + DIFF - LIPID PANEL BASIC - TSH BLD - T4 FREE/FREE THYROX - T3 FREE BLD - HGB A1C - THYROID PEROXIDASE ANTIBODY BLOOD 2. Perimenopausal - ICD9: 627.2, ICD10: N95.1 - labs as ordered, likely contributing to her symptoms of irritability and insomnia and anxiety and fatigue. Will start on OTC supplements and prn hydroxyzine at bedtime. Consider bio identical hormone therapy with MORNING NANNY or alternative medications such as buspirone or trazodone if needing other options in future. She is aware. - FSH BLD - THYROID PEROXIDASE ANTIBODY BLOOD - HYDROXYZINE HCL 25 MG TABLET - DXA-AXIAL SKELETON 3. Fatigue, unspecified type - ICD9: 780.79, ICD10: R53.83 - see above, decrease dose of vyvanse, can consider adding prn adderall short acting 5 mg to afternoon as needed. - LISDEXAMFETAMINE 20 MG CAPSULE 4. Attention deficit disorder (ADD) without hyperactivity - ICD9: 314.00, ICD10: F98.8 - see above, decrease dose of vyvanse, can consider adding prn adderall short acting 5 mg to afternoon as needed. - LISDEXAMFETAMINE 20 MG CAPSULE 5. GIBSON (generalized anxiety disorder) - ICD9: 300.02, ICD10: F41.1 - see above, decrease dose of vyvanse, can consider adding prn adderall short acting 5 mg to afternoon as needed. - labs as ordered, likely contributing to her symptoms of irritability and insomnia and anxiety and fatigue. Will start on OTC supplements and prn hydroxyzine at bedtime. Consider bio identical hormone therapy with MORNING NANNY or alternative medications such as buspirone or trazodone if needing other options in future. She is aware. - HYDROXYZINE HCL 25 MG TABLET 6. Situational insomnia - ICD9: 307.41, ICD10: F51.09 - see above, decrease dose of vyvanse, can consider adding prn adderall short acting 5 mg to afternoon as needed. - labs as ordered, likely contributing to her symptoms of irritability and insomnia and anxiety and fatigue. Will start on OTC supplements and prn hydroxyzine at bedtime. Consider bio identical hormone therapy with MORNING NANNY or alternative medications such as buspirone or trazodone if needing other options in future. She is aware. - HYDROXYZINE HCL 25 MG TABLET 7. Screening for osteoporosis - ICD9: V82.81, ICD10: Z13.820 - DXA-AXIAL SKELETON 8. Thyromegaly - ICD9: 240.9, ICD10: E01.0 Labs and thyroid US as ordered. - US THYROID/PARATHYROID Td Vcik DO To ER if develops chest pain, shortness of breath, or severe worsening of symptoms. Discussed risks, benefits, alternatives, and potential side effects of medications. Patient expressed understanding and agreed with the plan. Td Vick DO [address] [place] [address] documented in this encounter [facility] 03-28-2022 History of Present illness Narrative Subjective HPI Ny Colon is a 52 year old female who presents with sinus congestion, cough, headache, sinus pressure for the past 9 days. She was diagnosed with COVID on 03/19. She has been taking Mucinex and Advil at home. She denies fever, chest pain, or muscle aches. Review of Systems Constitutional: Negative for chills and fever. HENT: Positive for congestion and sinus pain. Negative for sore throat. Respiratory: Positive for cough. Negative for shortness of breath. Cardiovascular: Negative for chest pain. Musculoskeletal: Negative for myalgias. BP 120/74 Pulse 91 Temp 37 C (98.6 F) Resp 16 Wt 75.1 kg (165 lb 9.6 oz) LMP 10/23/2018 (Exact Date) SpO2 99% BMI 27.14 kg/m PAST MEDICAL HISTORY Diagnosis Date ADD (attention deficit disorder) Personal history of malignant melanoma of skin age 36 [place], follows regularly, Independent Driver Ulcerative proctitis (HCC) PAST SURGICAL HISTORY Procedure Laterality Date DELIVERY ONLY 1998, 2000 , low cervical COLONOSCOPY 05/11/16 proctitis, ulcerations PAST SURGICAL HISTORY OF 09/14 Dr. Flowers, [facility]; right ankle mole remoal-path + melanoma in situ ALLERGIES Wellbutrin [Bupropion Hcl] MEDICATIONS fexofenadine HCl (MUCINEX ALLERGY ORAL) Take by mouth. MULTIVITAMIN ORAL Take by mouth. amoxicillin-clavulanic acid (AUGMENTIN) 875-125 mg per tablet Take 1 tablet by mouth twice daily for 7 days. lisdexamfetamine (VYVANSE) 30 mg capsule Take 1 capsule by mouth once daily for 30 days. Do not start before December 21, 2021. lisdexamfetamine (VYVANSE) 30 mg capsule Take 1 capsule by mouth once daily for 30 days. Do not start before November 25, 2021. lisdexamfetamine (VYVANSE) 30 mg capsule Take 1 capsule by mouth once daily for 30 days. Do not start before October 27, 2021. FAMILY HISTORY Problem Relation Age of Onset Hypertension Mother late 30's Thyroid Mother unknown type Psychiatry Mother Allergies Father Hypertension Father Psychiatry Father Thyroid Sister Hypertension Brother Hypertension Brother Stroke Maternal Grandmother later in life (70's) Hypertension Maternal Grandmother Hypertension Maternal Aunt age unknown Hypertension Maternal Aunt age unknown Thyroid Maternal Aunt Diabetes Other none Coronary Artery Disease Other none Colon Cancer Other none Social History Tobacco Use Smoking status: Never Smoker Smokeless tobacco: Never Used Vaping Use Vaping Use: Never used Substance Use Topics Alcohol use: Yes Comment: rare Drug use: No Objective Physical Exam Vitals and nursing note reviewed. Constitutional: Appearance: Normal appearance. HENT: Right Ear: Tympanic membrane, ear canal and external ear normal. Left Ear: Tympanic membrane, ear canal and external ear normal. Nose: Nasal tenderness, mucosal edema and congestion present. Mouth/Throat: Mouth: Mucous membranes are moist. Pharynx: Oropharynx is clear. Uvula midline. No oropharyngeal exudate or posterior oropharyngeal erythema. Cardiovascular: Rate and Rhythm: Normal rate and regular rhythm. Heart sounds: Normal heart sounds. Pulmonary: Effort: Pulmonary effort is normal. No respiratory distress. Breath sounds: Normal breath sounds. No wheezing or rales. Musculoskeletal: Cervical back: Neck supple. Lymphadenopathy: Cervical: No cervical adenopathy. Skin: General: Skin is warm and dry. Findings: No erythema or rash. Neurological: Mental Status: She is alert. ASSESSMENT/PLAN: 1. Acute sinusitis, recurrence not specified, unspecified location - ICD9: 461.9, ICD10: J01.90 - Will begin treatment with Augmentin 875 mg PO BID for 7 days - The patient should also be given FLONASE nasal spray for the first 5-7 days of treatment. - Supportive care with plenty of fluids, rest, and analgesia prn. - AMOXICILLIN 875 MG-POTASSIUM CLAVULANATE 125 MG TABLET - Follow-up with your PCP in 3-5 days if symptoms have not improved or sooner if symptoms worsen - Discussed red flags and need for immediate medical evaluation if any occur. - Discussed supportive care treatment with fluids, rest and analgesia. - Discussed expected course of illness Ana Mcdaniels APRN.CNP documented in this encounter [facility] 03-28-2022 Instructions Ana Mcdaniels APRN.CNP - 03/28/2022 2:47 PM EDT ASSESSMENT/PLAN: 1. Acute sinusitis, recurrence not specified, unspecified location - ICD9: 461.9, ICD10: J01.90 - Will begin treatment with Augmentin 875 mg PO BID for 7 days - The patient should also be given FLONASE nasal spray for the first 5-7 days of treatment. - Supportive care with plenty of fluids, rest, and analgesia prn. - AMOXICILLIN 875 MG-POTASSIUM CLAVULANATE 125 MG TABLET - Follow-up with your PCP in 3-5 days if symptoms have not improved or sooner if symptoms worsen - Discussed red flags and need for immediate medical evaluation if any occur. - Discussed supportive care treatment with fluids, rest and analgesia. - Discussed expected course of illness Ana Mcdaniels APRN.[facility] PATIENT INFO ACUTE SINUSITIS OVERVIEW Rhinosinusitis, or more commonly sinusitis, is the medical term for inflammation (swelling) of the lining of the sinuses and nose. The sinuses are the hollow areas within the facial bones that are connected to the nasal openings. The sinuses are lined with mucous membranes, similar to the inside of the nose. There are two main types of sinusitis: acute and chronic. Acute sinusitis is inflammation that lasts for less than four weeks while chronic sinusitis lasts for more than 12 weeks. Acute sinusitis is common, affecting approximately one million people per year in the [place]. ACUTE SINUSITIS CAUSES The most common cause of acute sinusitis is a viral infection associated with the common cold. Bacterial sinusitis occurs much less commonly, in only 0.5 to 2 percent of cases, usually as a complication of viral sinusitis. Because antibiotics are effective only against bacterial, and not viral, infections, most people do not need antibiotics for acute sinusitis. ACUTE SINUSITIS SYMPTOMS Symptoms of acute sinusitis include: Nasal congestion or blockage Thick, yellow to green discharge from the nose Pain in the teeth Pain or pressure in the face that is worse when bending forwards Other acute sinusitis symptoms can include fever (temperature greater than 100.4 F or 38 C), fatigue, cough, difficulty or inability to smell, ear pressure or fullness, headache, and bad breath. In most cases, these symptoms develop over the course of one day and begin to improve within seven to 10 days. DO I NEED TO BE EXAMINED? It is difficult to know if you have a viral or bacterial sinus infection initially. However, most people with a viral infection improve without treatment within seven to 10 days after symptoms begin. Bacterial sinusitis also sometimes improves without treatment, although it can also worsen and require treatment. If one or more of the following bothersome symptoms last more than seven days, an examination by a healthcare provider is recommended: Thick, yellow to green discharge from the nose Face or tooth pain, especially if it is only on one side Tenderness over the maxillary sinuses (located on the left and right side of the nose, inside the cheekbones) Symptoms that initially improve and then worsen When to seek immediate help If you have one or more of the following symptoms, you should seek medical attention immediately (even if symptoms have been present for less than seven days): High fever (>102.5 F or 39.2 C) Sudden, severe pain in the face or head Double vision or difficulty seeing Confusion or difficulty thinking clearly Swelling or redness around one or both eyes Stiff neck, shortness of breath ACUTE SINUSITIS TREATMENT Initial treatment of a sinus infection aims to relieve symptoms since almost everyone will improve within the first seven to 10 days. Experts recommend avoiding antibiotics during this time unless there is clear evidence of a severe bacterial infection. Initial treatment Pain relief Non-prescription pain medications, such as acetaminophen (eg, Tylenol ) or ibuprofen (eg, Motrin , Advil ) are recommended for pain. Nasal irrigation and saline sprays Rinsing the nose with a salt-water (saline) solution is called nasal irrigation or nasal lavage. Saline is also available in a standard nasal spray, although this is not as effective as using larger amounts of water in an irrigation. Nasal irrigation is particularly useful for treating drainage down the back of the throat, sneezing, nasal dryness, and congestion. The treatment helps by rinsing out allergens and irritants from the nose. Saline rinses also clean the nasal lining and can be used before applying sprays containing medications, to get a better effect from the medication. Nasal lavage with warmed saline can be performed as needed, once per day, or twice daily for increased symptoms. Nasal lavage carries few risks when performed correctly. Saline nasal sprays and irrigation kits can be purchased [id number]. Saline mixes can also be purchased or patients can make their own solution. A variety of devices, including bulb syringes, Neti pots, and bottle sprayers, may be used to perform nasal lavage; instructions for nasal lavage are provided in the table. At least 200 mL (about 3/4 cup) of fluid is recommended for each nostril. Nasal decongestants Nasal decongestant sprays, including oxymetazoline (Afrin ) and phenylephrine (Inderjit-synephrine ) can be used to temporarily treat congestion. However, these sprays should not be used for more than two to three days due to the risk of rebound congestion (when the nose is congested constantly unless the medication is used repeatedly). Other treatments Other treatments for congestion, such as oral antihistamines (such as diphenhydramine/Benadryl ) or zinc supplements are not proven to improve symptoms of sinusitis and can have unwanted side effects. Medications to thin secretions (such as guaifenesin) may help to clear mucus. Secondline treatment If symptoms have not improved in seven to ten days, you should arrange for medical evaluation. You may need further treatment. Nasal glucocorticoids Nasal glucocorticoids (steroids delivered by a nasal spray) can help to reduce swelling inside the nose, usually within two to three days. These drugs have few side effects and dramatically relieve symptoms in most people. There are a number of nasal glucocorticoids available by prescription. These drugs are all effective, but differ in how frequently they must be used and how much they cost. You may need to use a nasal decongestant for a few days before starting a nasal glucocorticoid to reduce nasal swelling; this will allow the nasal glucocorticoid to reach more areas of the nasal passages Do I need an antibiotic? If bothersome symptoms of sinusitis persist for 10 or more days, it is possible that you have bacterial sinusitis. The need for antibiotics depends upon the severity of your symptoms. Mild symptoms There are two possible treatment options if you have mild sinusitis symptoms: treat with antibiotics or continue to watch and wait for one week. Watching and waiting is a reasonable option because up to 75 percent of people with bacterial sinusitis improve within one month without antibiotics. During the watch and wait period, treatments to improve symptoms are recommended. If symptoms worsen or do not improve after watching and waiting, treatment with an antibiotic is usually recommended. Treatments to relieve symptoms are recommended while using antibiotics. Moderate or severe symptoms Most healthcare providers will prescribe an antibiotic for moderate to severe symptoms (temperature >38.3 C or 101 F and/or severe pain that interferes with usual activities). Treatments to relieve symptoms are also recommended during antibiotic treatment. One of the least expensive and most effective antibiotics for sinusitis is amoxicillin. An alternate antibiotic will be prescribed if you are allergic to penicillin. Regardless of which antibiotic is prescribed, it is important to follow the dosing instructions carefully and to finish the entire course of treatment. Taking the medication less often than prescribed or stopping the medication early can lead to complications, such as a recurrent infection. What if I do not improve with treatment? If you do not improve or worsen after a course of antibiotics, you should be re-examined. In some cases, symptoms of sinusitis improve but then recur. This is usually because the infection was not completely eliminated by the antibiotic. An alternate antibiotic, extended antibiotic treatment, and/or further testing may be recommended, depending upon your individual situation. documented in this encounter [facility] 11-29-2008 History of Past i llness Narrative Problem Noted Date Resolved Date Routine general medical exam ination at a health care facility 11/29/2008 07/24/2012 Overview: 4 documented as of this encounter (statuses as of 03/28/2022) [facility] History of Past illness Narrative* Problem Noted Date Resolved Date Routine general medical exam ination at a health care facility 11/29/2008 07/24/2012 Overview: 4 documented as of this encounter (statuses as of 04/21/2022) [facility] History of Past illness Narrative* Problem Noted Date Resolved Date Routine general medical exam ination at a health care facility 11/29/2008 07/24/2012 Overview: 4 documented as of this encounter (statuses as of 04/24/2022) [facility] History of Past illness Narrative* Problem Noted Date Resolved Date Routine general medical exam ination at a health care facility 11/29/2008 07/24/2012 Overview: 4 documented as of this encounter (statuses as of 05/24/2022) [facility] History of Past illness Narrative* Problem Noted Date Resolved Date Routine general medical exam ination at a health care facility 11/29/2008 07/24/2012 Overview: 01/14 documented as of this encounter (statuses as of 06/07/2022) [facility] History of Past illness Narrative* Problem Noted Date Resolved Date Routine general medical exam ination at a health care facility 11/29/2008 07/24/2012 Overview: 4 documented as of this encounter (statuses as of 06/21/2022) [facility] History of Past illness Narrative* Problem Noted Date Resolved Date Routine general medical exam ination at a health care facility 11/29/2008 07/24/2012 Overview: 4 documented as of this encounter (statuses as of 06/30/2022) [address]20-2009 History of Past illness Narrative* Problem Noted Date Resolved Date Routine general medical exam ination at a health care facility 11/29/2008 07/24/2012 Overview: 4 documented as of this encounter (statuses as of 06/30/2022) [address]20-2009 History of Past illness Narrative* Problem Noted Date Resolved Date Routine general medical exam ination at a health care facility 11/29/2008 07/24/2012 Overview: 4 documented as of this encounter (statuses as of 07/01/2022) [address]20-2009 History of Past illness Narrative* Problem Noted Date Resolved Date Routine general medical exam ination at a health care facility 11/29/2008 07/24/2012 Overview: 4 documented as of this encounter (statuses as of 11/29/2022) [address]20-2009 History of Past illness Narrative* Problem Noted Date Resolved Date Routine general medical exam ination at a health care facility 11/29/2008 07/24/2012 Overview: 4 documented as of this encounter (statuses as of 11/29/2022) [address]20-2009 History of Past illness Narrative* Problem Noted Date Resolved Date Routine general medical exam ination at a health care facility 11/29/2008 07/24/2012 Overview: 4 documented as of this encounter (statuses as of 12/20/2022) [place] [address]-20-2009 History of Past illness Narrative* Problem Noted Date Resolved Date Routine general medical exam ination at a health care facility 11/29/2008 07/24/2012 Overview: 4/ documented as of this encounter (statuses as of 12/22/2022) [facility] History of Past illness Narrative* Problem Noted Date Resolved Date Routine general medical exam ination at a health care facility 11/29/2008 07/24/2012 Overview: 4/ documented as of this encounter (statuses as of 12/25/2022) [address]20-2009 History of Past illness Narrative* Problem Noted Date Resolved Date Routine general medical exam ination at a health care facility 11/29/2008 07/24/2012 Overview: 4/ documented as of this encounter (statuses as of 12/27/2022) [address]20-2009 History of Past illness Narrative* Problem Noted Date Resolved Date Routine general medical exam ination at a health care facility 11/29/2008 07/24/2012 Overview: 4/ documented as of this encounter (statuses as of 12/30/2022) [address]20-2009 History of Past illness Narrative* Problem Noted Date Diagnosed Date Resolved Date Routine general medical exam ination at a health care facility 11/29/2008 07/24/2012 Overview: 4/ documented as of this encounter (statuses as of 05/06/2023) [facility] History of Past illness Narrative* Problem Noted Date Diagnosed Date Resolved Date Routine general medical exam ination at a health care facility 11/29/2008 07/24/2012 Overview: 4/ documented as of this encounter (statuses as of 05/30/2023) [address]20-2009 History of Past illness Narrative* Problem Noted Date Diagnosed Date Resolved Date Routine general medical exam ination at a health care facility 11/29/2008 07/24/2012 Overview: 4/ documented as of this encounter (statuses as of 06/09/2023) [place] [address]-20-2009 History of Past illness Narrative* Problem Noted Date Diagnosed Date Resolved Date Routine general medical exam ination at a health care facility 11/29/2008 07/24/2012 Overview: 4/ documented as of this encounter (statuses as of 06/10/2023) [address]20-2009 History of Past illness Narrative* Problem Noted Date Diagnosed Date Resolved Date Routine general medical exam ination at a health care facility 11/29/2008 07/24/2012 Overview: 4/ documented as of this encounter (statuses as of 06/10/2023) [address]20-2009 History of Past illness Narrative* Problem Noted Date Diagnosed Date Resolved Date Routine general medical exam ination at a health care facility 11/29/2008 07/24/2012 Overview: 4 documented as of this encounter (statuses as of 06/15/2023) [address]20-2009 History of Past illness Narrative* Problem Noted Date Diagnosed Date Resolved Date Routine general medical exam ination at a health care facility 11/29/2008 07/24/2012 Overview: 4 documented as of this encounter (statuses as of 06/24/2023) [place] [address]-20-2009 History of Past illness Narrative* Problem Noted Date Diagnosed Date Resolved Date Routine general medical exam ination at a health care facility 11/29/2008 07/24/2012 Overview: 4 documented as of this encounter (statuses as of 06/27/2023) [place] [address]-20-2009 History of Past illness Narrative* Problem Noted Date Diagnosed Date Resolved Date Routine general medical exam ination at a health care facility 11/29/2008 07/24/2012 Overview: 4 documented as of this encounter (statuses as of 06/27/2023) [place] [address]-20-2009 History of Past illness Narrative* Problem Noted Date Diagnosed Date Resolved Date Routine general medical exam ination at a health care facility 11/29/2008 07/24/2012 Overview: 4/ documented as of this encounter (statuses as of 08/11/2023) [facility] History of Past illness Narrative* Problem Noted Date Diagnosed Date Resolved Date Routine general medical exam ination at a health care facility 11/29/2008 07/24/2012 Overview: 4 documented as of this encounter (statuses as of 08/18/2023) [place] [address]-20-2009 History of Past illness Narrative* Problem Noted Date Diagnosed Date Resolved Date Routine general medical exam ination at a health care facility 11/29/2008 07/24/2012 Overview: 4 documented as of this encounter (statuses as of 08/26/2023) [address]20-2009 History of Past illness Narrative* Problem Noted Date Diagnosed Date Resolved Date Routine general medical exam ination at a health care facility 11/29/2008 07/24/2012 Overview: 4 documented as of this encounter (statuses as of 08/31/2023) [facility] History of Past illness Narrative* Problem Noted Date Diagnosed Date Resolved Date Routine general medical exam ination at a health care facility 11/29/2008 07/24/2012 Overview: 4 documented as of this encounter (statuses as of 09/15/2023) [place] [address]-20-2009 History of Past illness Narrative* Problem Noted Date Diagnosed Date Resolved Date Routine general medical exam ination at a health care facility 11/29/2008 07/24/2012 Overview: 4 documented as of this encounter (statuses as of 12/02/2023) [place] [address]20-2009 History of Past illness Narrative* Problem Noted Date Diagnosed Date Resolved Date Routine general medical exam ination at a health care facility 11/29/2008 07/24/2012 Overview: 4 documented as of this encounter (statuses as of 01/30/2024) [facility] Acute sinusitis, recurrence not specified, unspecified location- [facility] Diagnosis Well adult exam- Primary Routine general medical examination at a health care facility Perimenopausal Symptomatic menopausal or female climacteric states Fatigue, unspecified type Attention deficit disorder (ADD) without hyperactivity GISBON (generalized anxiety disorder) Generalized anxiety disorder Situational insomnia Transient disorder of initiating or maintaining sleep Screening for osteoporosis Special screening for osteoporosis Thyromegaly Goiter, unspecified [facility] Thyromegaly Goiter, unspecified [facility] Diagnosis Fatigue, unspecified type Attention deficit disorder (ADD) without hyperactivity [facility] Diagnosis Chest tightness- Primary Other chest pain Persistent cough Cough Post-COVID chronic cough [facility] Chest tightness Other chest pain Persistent cough Cough Post-COVID chronic cough [facility] Diagnosis Fatigue, unspecified type Attention deficit disorder (ADD) without hyperactivity [facility] Diagnosis Fatigue, unspecified type Attention deficit disorder (ADD) without hyperactivity [facility] Diagnosis Attention deficit disorder (ADD) without hyperactivity- Primary [facility] Diagnosis Acute otitis media, right- Primary Unspecified otitis media [facility] Diagnosis Encounter for screening mammogram for breast cancer [facility] Diagnosis Encounter for gynecological examination (general) (routine) without abnormal findings- Primary Encounter for screening for human papillomavirus (HPV) Special screening examination for human papillomavirus (HPV) Pap smear for cervical cancer screening Screening for malignant neoplasm of the cervix Encounter for screening mammogram for breast cancer Cervical polyp Mucous polyp of cervix Postmenopausal state Asymptomatic postmenopausal status (age-related) (natural) [facility] Diagnosis Elevated ALT measurement- Primary Nonspecific elevation of levels of transaminase or lactic acid dehydrogenase (LDH) [facility] Diagnosis Elevated LFTs- Primary Other abnormal blood chemistry [facility] Diagnosis Fatty liver- Primary Other chronic nonalcoholic liver disease [facility] Diagnosis Fatty liver- Primary Other chronic nonalcoholic liver disease [facility] Diagnosis Elevated LFTs- Primary Other abnormal blood chemistry Fatty liver Other chronic nonalcoholic liver disease documented in this encounter [facility] note* Diagnosis Elevated LFTs Other abnormal blood chemistry documented in this encounter [facility] note* Diagnosis Fatty liver- Primary Other chronic nonalcoholic liver disease Other constipation History of proctitis Personal history of other diseases of digestive system [facility] Diagnosis Upper respiratory infection, viral- Primary documented in this encounter [facility] note* Diagnosis Fatty liver- Primary Other chronic nonalcoholic liver disease documented in this encounter [facility] note* Diagnosis Attention deficit disorder (ADD) in adult- Primary documented in this encounter [facility] note* Diagnosis Well adult exam- Primary Routine general medical examination at a health care facility Situational anxiety Other anxiety states Vitamin D deficiency Unspecified vitamin D deficiency Attention deficit disorder (ADD) in adult Elevated LFTs Other abnormal blood chemistry documented in this encounter [facility] note* Diagnosis Fatty liver- Primary Other chronic nonalcoholic liver disease documented in this encounter [facility] note* Diagnosis History of proctitis Personal history of other diseases of digestive system Other constipation [facility]* Diagnosis Chest tightness Other chest pain Persistent cough Cough Post-COVID chronic cough documented in this encounter [facility] note* Diagnosis Encounter for screening mammogram for breast cancer documented in this encounter [facility] note* Diagnosis Multiple thyroid nodules Nontoxic multinodular goiter documented in this encounter [facility] note* Diagnosis Right thyroid nodule- Primary Nontoxic uninodular goiter documented in this encounter [facility] note* Diagnosis Abnormal ultrasound of thyroid gland Nonspecific abnormal results of thyroid function study documented in this encounter [facility] note* Diagnosis Multinodular goiter- Primary Nontoxic multinodular goiter [facility] Diagnosis Well adult exam- Primary Routine general medical examination at a health care facility Palpitations RBBB Right bundle branch block Chronic cough Cough Encounter for screening for cardiovascular disorders Screening for other and unspecified cardiovascular conditions Family history of aortic aneurysm Family history of other cardiovascular diseases Butterfly rash Rash and other nonspecific skin eruption Dyslipidemia Other and unspecified hyperlipidemia [facility] Diagnosis Aortic dilatation- Primary Aortic ectasia, unspecified site documented in this encounter [facility] note* Diagnosis Fatty liver- Primary Other chronic nonalcoholic liver disease Internal hemorrhoids Internal hemorrhoids without mention of complication Chronic cough Cough documented in this encounter [facility] note* Diagnosis Encounter for screening mammogram for breast cancer documented in this encounter [facility] note* Diagnosis Palpitations- Primary Aortic dilatation Aortic ectasia, unspecified site RBBB Right bundle branch block Encounter for screening for cardiovascular disorders Screening for other and unspecified cardiovascular conditions documented in this encounter [facility] for referral (narrative)* Diagnostic Procedure Only (Routine) - Authorized Specialty Diagnoses / Procedures Referred By Elisabeth gayle Referred To Contact [facility] Diagnoses Thyromegaly Procedures US THYROID/PARATHYROID US SOFT TISSUE HEAD & NECK REAL TIME IMGE Td Caballero DO [address] [place] [address] [facility] Referral ID Status Reason Start Date Expiration Date Visits Requested Visits Authorized [id number] Authorized Auto-Generat ed Referral 04/23/2022 10/09/2022 1 1 [facility] for referral (narrative)* Diagnostic Procedure Only (Routine) - Closed Specialty Diagnoses / Procedures Referred By Elisabeth gayle Referred To Contact [facility] Diagnoses Thyromegaly Procedures US THYROID/PARATHYROID US SOFT TISSUE HEAD & NECK REAL TIME IMGE Td Caballero DO [address] [place] [address] [facility] Referral ID Status Reason Start Date Expiration Date V isits Requested Visits Authorized [id number] Closed Auto-Generate d Referral 04/23/2022 10/09/2022 1 1 T [facility] for referral (narrative)* Diagnostic Procedure Only (Routine) - Authorized Specialty Diagnoses / Procedures Referred By Elisabeth gayle Referred To Contact [facility] Diagnoses Encounter for screening mammogram for breast cancer Procedures BALDEMAR SCREENING W GIOVANY SCREENING DIGITAL BREAST TOMOSYNTHESIS BI SCREENING MAMMOGRAPHY BI 2-VIEW BREAST INC CAD Td Vick DO [address] [place] [address] [facility] [address] [place] [address] Referral ID Status Reason Start Date Expiration Date Visits Requested Visits Authorized [id number] Authorized Auto-Generat ed Referral 12/15/2022 01/14/2024 1 1 [facility] for referral (narrative)* Diagnostic Procedure Only (Routine) - Pending Review Specialty Diagnoses / Procedures Referred By Contac t Referred To Contact [facility] Diagnoses Encounter for screening mammogram for breast cancer Procedures BALDEMAR SCREENING W GIOVANY SCREENING DIGITAL BREAST TOMOSYNTHESIS BI SCREENING MAMMOGRAPHY BI 2-VIEW BREAST INC Francy Kruse APRN.CNM [address] [place] [address] [facility] [address] [place] [phone] Referral ID Status Reason Start Date Expiration Date Visits Requested Visits Authorized [id number] Pending Review Auto-Generat ed Referral 12/23/2023 01/21/2024 1 1 T [facility] for referral (narrative)* Diagnostic Procedure Only (Routine) - Authorized Specialty Diagnoses / Procedures Referred By Contac t Referred To Contact [facility] Diagnoses Elevated LFTs Procedures US ABD RIGHT UPPER QUADRANT US ABDOMINAL REAL TIME W/IMAGE LIMITED Td Vick DO [address] [place] [address] [place] [address] Referral ID Status Reason Start Date Expiration Date Visits Requested Visits Authorized [id number] Authorized Auto-Generat ed Referral 05/30/2023 10/09/2023 1 1 [facility] for referral (narrative)* Diagnostic Procedure Only (Routine) - Closed Specialty Diagnoses / Procedures Referred By Contac t Referred To Contact [facility] Diagnoses Elevated LFTs Procedures US ABD RIGHT UPPER QUADRANT US ABDOMINAL REAL TIME W/IMAGE LIMITED Td Vick, DO [address] [place] [address] [facility] [address] Referral ID Status Reason Start Date Expiration Date V isits Requested Visits Authorized [id number] Closed Auto-Generate d Referral 05/30/2023 10/09/2023 1 1 [facility] for referral (narrative)* Outpatient Procedure (Routine) - Authorized Specialty Diagnoses / Procedures Referred By Contac t Referred To Contact [facility] Diagnoses History of proctitis Other constipation Procedures COLONOSCOPY DIAGNOSTIC COLONOSCOPY FLX DX W/COLLJ SPEC WHEN Selene Haq PA-C [address] [place] [address] [facility] [address] [place] [address] Referral ID Status Reason Start Date Expiration Date Visits Requested Visits Authorized [id number] Authorized Auto-Generat ed Referral 08/18/2023 08/18/2024 1 1 [facility] for referral (narrative)* Diagnostic Procedure Only (Routine) - Pending Review Specialty Diagnoses / Procedures Referred By Elisabeth t Referred To Contact [facility] Procedures BALDEMAR SCREENING W GIOVANY SCREENING DIGITAL BREAST TOMOSYNTHESIS BI SCREENING MAMMOGRAPHY BI 2-VIEW BREAST INC Td Sultana, DO [address] [place] [address] [facility] [address] [place] [phone] Referral ID Status Reason Start Date Expiration Date Visits Requested Visits Authorized [id number] Pending Review Auto-Generat ed Referral 01/25/2024 02/23/2025 1 1 T [facility] for referral (narrative)* Outpatient Procedure (Routine) - New Request Specialty Diagnoses / Procedures Referred By Elisabeth t Referred To Contact [facility] Diagnoses Fatty liver Procedures DDI VIBRATION CONTROLLED TRANSIENT ELASTOGRAPHY (VCTE) LIVER ELASTOGRAPHY W/O IMAG W/I&R Selene Lindsey PA-C [address] [place] [address] [address] Referral ID Status Reason Start Date Expiration Date Visits Requested Visits Authorized [id number] New Request Auto-Generat ed Referral 06/01/2024 06/01/2025 1 1 [facility] for referral (narrative)* Outpatient Procedure (Routine) - Closed Specialty Diagnoses / Procedures Referred By Contac t Referred To Contact [facility] Diagnoses History of proctitis Other constipation Procedures COLONOSCOPY DIAGNOSTIC COLONOSCOPY FLX DX W/COLLJ SPEC WHEN PFRMD Selene Lindsey PA-C [address] [place] [address] [address] Referral ID Status Reason Start Date Expiration Date V isits Requested Visits Authorized [id number] Closed Auto-Generate d Referral 08/18/2023 08/18/2024 1 1 [facility] for visit Narrative* Outpatient Procedure (Routine) - Closed Specialty Diagnoses / Procedures Referred By Contac t Referred To Contact [facility] Diagnoses Elevated LFTs Fatty liver Procedures DDI VIBRATION CONTROLLED TRANSIENT ELASTOGRAPHY (VCTE) LIVER ELASTOGRAPHY W/O IMAG W/I&R Ny Leblanc, STUNNER ANIMAL.VIDEO GAME ENGINEER [address] [place] [address] [address] [address] Referral ID Status Reason Start Date Expiration Date V isits Requested Visits Authorized [id number] Closed Auto-Generate d Referral 06/24/2023 10/09/2023 1 1 [facility] for visit Narrative* Outpatient Procedure (Routine) - Closed Specialty Diagnoses / Procedures Referred By Contac t Referred To Contact [facility] Diagnoses History of proctitis Other constipation Procedures COLONOSCOPY DIAGNOSTIC COLONOSCOPY FLX DX W/COLLJ SPEC WHEN PFRMD Selene Lindsey PA-C [address] [place] [address] [facility] [address] [place] [address] Referral ID Status Reason Start Date Expiration Date V isits Requested Visits Authorized [id number] Closed Auto-Generate d Referral 08/18/2023 08/18/2024 1 1 [facility] Diagnostic Procedure Only (Routine) - Closed Specialty Diagnoses / Procedures Referred By Contac t Referred To Contact [facility] Diagnoses Encounter for screening mammogram for breast cancer Procedures BALDEMAR SCREENING W GIOVANY SCREENING DIGITAL BREAST TOMOSYNTHESIS BI SCREENING MAMMOGRAPHY BI 2-VIEW BREAST INC Td Sultana, DO [address] [place] [address] Phone: tel: fax: [facility] [address] [place] [address] Referral ID Status Reason Start Date Expiration Date V isits Requested Visits Authorized [id number] Closed Auto-Generate d Referral 06/12/2025 10/09/2025 1 1 [facility] Advance Directives Documents on File Type Date Recorded Patient Burrito Maker Expl anation Advance Directive(s) 05/12/2016 6:57 PM Advance Directive(s) 04/30/2016 4:44 PM Documents on File Type Date Recorded Patient Burrito Maker Expl anation Advance Directive(s) 05/12/2016 6:57 PM Advance Directive(s) 04/30/2016 4:44 PM Summary Purpose Family History No Family History Records FoundNo Family History Records Found Additional Source Comments Source Comments (unrecognize d section and content) In the event this informatio n is protected by the Federal Confidentiality of Alcohol and Drug Abuse Patient Records regulations: The Federal rules restrict any use of the information to criminally investigate or prosecute any alcohol or drug abuse patient.[facility] this information is protected by the Federal Confidentiality of Alcohol and Drug Abuse Patient Records regulations: The Federal rules restrict any use of the information to criminally investigate or prosecute any alcohol or drug abuse patient.[facility] event this information is protected by the Federal Confidentiality of Alcohol and Drug Abuse Patient Records regulations: The Federal rules restrict any use of the information to criminally investigate or prosecute any alcohol or drug abuse patient.[facility] event this information is protected by the Federal Confidentiality of Alcohol and Drug Abuse Patient Records regulations: The Federal rules restrict any use of the information to criminally investigate or prosecute any alcohol or drug abuse patient.[facility] the event this information is protected by the Federal Confidentiality of Alcohol and Drug Abuse Patient Records regulations: The Federal rules restrict any use of the information to criminally investigate or prosecute any alcohol or drug abuse patient.[facility] the event this information is protected by the Federal Confidentiality of Alcohol and Drug Abuse Patient Records regulations: The Federal rules restrict any use of the information to criminally investigate or prosecute any alcohol or drug abuse patient.[facility] the event this information is protected by the Federal Confidentiality of Alcohol and Drug Abuse Patient Records regulations: The Federal rules restrict any use of the information to criminally investigate or prosecute any alcohol or drug abuse patient.[facility] HospitalIn the event this information is protected by the Federal Confidentiality of Alcohol and Drug Abuse Patient Records regulations: The Federal rules restrict any use of the information to criminally investigate or prosecute any alcohol or drug abuse patient.[facility] HospitalIn the event this information is protected by the Federal Confidentiality of Alcohol and Drug Abuse Patient Records regulations: The Federal rules restrict any use of the information to criminally investigate or prosecute any alcohol or drug abuse patient.[facility] HospitalIn the event this information is protected by the Federal Confidentiality of Alcohol and Drug Abuse Patient Records regulations: The Federal rules restrict any use of the information to criminally investigate or prosecute any alcohol or drug abuse patient.[facility] HospitalIn the event this information is protected by the Federal Confidentiality of Alcohol and Drug Abuse Patient Records regulations: The Federal rules restrict any use of the information to criminally investigate or prosecute any alcohol or drug abuse patient.[facility] HospitalIn the event this information is protected by the Federal Confidentiality of Alcohol and Drug Abuse Patient Records regulations: The Federal rules restrict any use of the information to criminally investigate or prosecute any alcohol or drug abuse patient.[facility] HospitalIn the event this information is protected by the Federal Confidentiality of Alcohol and Drug Abuse Patient Records regulations: The Federal rules restrict any use of the information to criminally investigate or prosecute any alcohol or drug abuse patient.[facility] HospitalIn the event this information is protected by the Federal Confidentiality of Alcohol and Drug Abuse Patient Records regulations: The Federal rules restrict any use of the information to criminally investigate or prosecute any alcohol or drug abuse patient.[facility] HospitalIn the event this information is protected by the Federal Confidentiality of Alcohol and Drug Abuse Patient Records regulations: The Federal rules restrict any use of the information to criminally investigate or prosecute any alcohol or drug abuse patient.[facility] HospitalIn the event this information is protected by the Federal Confidentiality of Alcohol and Drug Abuse Patient Records regulations: The Federal rules restrict any use of the information to criminally investigate or prosecute any alcohol or drug abuse patient.[facility] HospitalIn the event this information is protected by the Federal Confidentiality of Alcohol and Drug Abuse Patient Records regulations: The Federal rules restrict any use of the information to criminally investigate or prosecute any alcohol or drug abuse patient.[facility] HospitalIn the event this information is protected by the Federal Confidentiality of Alcohol and Drug Abuse Patient Records regulations: The Federal rules restrict any use of the information to criminally investigate or prosecute any alcohol or drug abuse patient.[facility] HospitalIn the event this information is protected by the Federal Confidentiality of Alcohol and Drug Abuse Patient Records regulations: The Federal rules restrict any use of the information to criminally investigate or prosecute any alcohol or drug abuse patient.[facility] HospitalIn the event this information is protected by the Federal Confidentiality of Alcohol and Drug Abuse Patient Records regulations: The Federal rules restrict any use of the information to criminally investigate or prosecute any alcohol or drug abuse patient.[facility] HospitalIn the event this information is protected by the Federal Confidentiality of Alcohol and Drug Abuse Patient Records regulations: The Federal rules restrict any use of the information to criminally investigate or prosecute any alcohol or drug abuse patient.[facility] HospitalIn the event this information is protected by the Federal Confidentiality of Alcohol and Drug Abuse Patient Records regulations: The Federal rules restrict any use of the information to criminally investigate or prosecute any alcohol or drug abuse patient.[facility] HospitalIn the event this information is protected by the Federal Confidentiality of Alcohol and Drug Abuse Patient Records regulations: The Federal rules restrict any use of the information to criminally investigate or prosecute any alcohol or drug abuse patient.[facility] HospitalIn the event this information is protected by the Federal Confidentiality of Alcohol and Drug Abuse Patient Records regulations: The Federal rules restrict any use of the information to criminally investigate or prosecute any alcohol or drug abuse patient.[facility] HospitalIn the event this information is protected by the Federal Confidentiality of Alcohol and Drug Abuse Patient Records regulations: The Federal rules restrict any use of the information to criminally investigate or prosecute any alcohol or drug abuse patient.[facility] HospitalIn the event this information is protected by the Federal Confidentiality of Alcohol and Drug Abuse Patient Records regulations: The Federal rules restrict any use of the information to criminally investigate or prosecute any alcohol or drug abuse patient.[facility] HospitalIn the event this information is protected by the Federal Confidentiality of Alcohol and Drug Abuse Patient Records regulations: The Federal rules restrict any use of the information to criminally investigate or prosecute any alcohol or drug abuse patient.[facility] HospitalIn the event this information is protected by the Federal Confidentiality of Alcohol and Drug Abuse Patient Records regulations: The Federal rules restrict any use of the information to criminally investigate or prosecute any alcohol or drug abuse patient.[facility] HospitalIn the event this information is protected by the Federal Confidentiality of Alcohol and Drug Abuse Patient Records regulations: The Federal rules restrict any use of the information to criminally investigate or prosecute any alcohol or drug abuse patient.[facility] HospitalIn the event this information is protected by the Federal Confidentiality of Alcohol and Drug Abuse Patient Records regulations: The Federal rules restrict any use of the information to criminally investigate or prosecute any alcohol or drug abuse patient.[facility] HospitalIn the event this information is protected by the Federal Confidentiality of Alcohol and Drug Abuse Patient Records regulations: The Federal rules restrict any use of the information to criminally investigate or prosecute any alcohol or drug abuse patient.[facility] HospitalIn the event this information is protected by the Federal Confidentiality of Alcohol and Drug Abuse Patient Records regulations: The Federal rules restrict any use of the information to criminally investigate or prosecute any alcohol or drug abuse patient.[facility] HospitalIn the event this information is protected by the Federal Confidentiality of Alcohol and Drug Abuse Patient Records regulations: The Federal rules restrict any use of the information to criminally investigate or prosecute any alcohol or drug abuse patient.[facility] HospitalIn the event this information is protected by the Federal Confidentiality of Alcohol and Drug Abuse Patient Records regulations: The Federal rules restrict any use of the information to criminally investigate or prosecute any alcohol or drug abuse patient.[facility] HospitalIn the event this information is protected by the Federal Confidentiality of Alcohol and Drug Abuse Patient Records regulations: The Federal rules restrict any use of the information to criminally investigate or prosecute any alcohol or drug abuse patient.[facility] HospitalIn the event this information is protected by the Federal Confidentiality of Alcohol and Drug Abuse Patient Records regulations: The Federal rules restrict any use of the information to criminally investigate or prosecute any alcohol or drug abuse patient.[facility] HospitalIn the event this information is protected by the Federal Confidentiality of Alcohol and Drug Abuse Patient Records regulations: The Federal rules restrict any use of the information to criminally investigate or prosecute any alcohol or drug abuse patient.[facility] HospitalIn the event this information is protected by the Federal Confidentiality of Alcohol and Drug Abuse Patient Records regulations: The Federal rules restrict any use of the information to criminally investigate or prosecute any alcohol or drug abuse patient.[facility] HospitalIn the event this information is protected by the Federal Confidentiality of Alcohol and Drug Abuse Patient Records regulations: The Federal rules restrict any use of the information to criminally investigate or prosecute any alcohol or drug abuse patient.[facility] HospitalIn the event this information is protected by the Federal Confidentiality of Alcohol and Drug Abuse Patient Records regulations: The Federal rules restrict any use of the information to criminally investigate or prosecute any alcohol or drug abuse patient.[facility] HospitalIn the event this information is protected by the Federal Confidentiality of Alcohol and Drug Abuse Patient Records regulations: The Federal rules restrict any use of the information to criminally investigate or prosecute any alcohol or drug abuse patient.[facility] HospitalIn the event this information is protected by the Federal Confidentiality of Alcohol and Drug Abuse Patient Records regulations: The Federal rules restrict any use of the information to criminally investigate or prosecute any alcohol or drug abuse patient.[facility] HospitalIn the event this information is protected by the Federal Confidentiality of Alcohol and Drug Abuse Patient Records regulations: The Federal rules restrict any use of the information to criminally investigate or prosecute any alcohol or drug abuse patient.[facility] HospitalIn the event this information is protected by the Federal Confidentiality of Alcohol and Drug Abuse Patient Records regulations: The Federal rules restrict any use of the information to criminally investigate or prosecute any alcohol or drug abuse patient.[facility] HospitalIn the event this information is protected by the Federal Confidentiality of Alcohol and Drug Abuse Patient Records regulations: The Federal rules restrict any use of the information to criminally investigate or prosecute any alcohol or drug abuse patient.[facility] HospitalIn the event this information is protected by the Federal Confidentiality of Alcohol and Drug Abuse Patient Records regulations: The Federal rules restrict any use of the information to criminally investigate or prosecute any alcohol or drug abuse patient.[facility] HospitalIn the event this information is protected by the Federal Confidentiality of Alcohol and Drug Abuse Patient Records regulations: The Federal rules restrict any use of the information to criminally investigate or prosecute any alcohol or drug abuse patient.[facility] HospitalIn the event this information is protected by the Federal Confidentiality of Alcohol and Drug Abuse Patient Records regulations: The Federal rules restrict any use of the information to criminally investigate or prosecute any alcohol or drug abuse patient.[facility] HospitalIn the event this information is protected by the Federal Confidentiality of Alcohol and Drug Abuse Patient Records regulations: The Federal rules restrict any use of the information to criminally investigate or prosecute any alcohol or drug abuse patient.[facility] HospitalIn the event this information is protected by the Federal Confidentiality of Alcohol and Drug Abuse Patient Records regulations: The Federal rules restrict any use of the information to criminally investigate or prosecute any alcohol or drug abuse patient.[facility] Reason for Visit (unrecogniz ed section and content) Reason Comments Cough +Covid 03/19/22 home test, reported SOB, dizziness, denied chest pain Headache pain rated 1, nasal congestion Reason Comments Yearly Exam Specialty Diagnoses / Procedures Referred By Contac t Referred To Contact Family Practice / FAMILY MEDICINE Diagnoses Annual physical exam annual Procedures OFFICE/OUTPATIENT ESTABLISHED MOD MDM 30-39 MIN 4C EST WELL Td Vick, DO [address] [place] [address] Td Vick L, DO [address] [place] [address] Referral ID Status Reason Start Date Expiration Date Visits Re quested Visits Authorized [id number] Closed 04/21/2022 10/09/2022 1 1 Reason Comments Radiology US Specialty Diagnoses / Procedures Referred By Contac t Referred To Contact [facility] Diagnoses Thyromegaly Procedures US THYROID/PARATHYROID US SOFT TISSUE HEAD & NECK REAL TIME IMGE DOCM Td Vick Eunice, DO [address] [place] [address] [facility] Referral ID Status Reason Start Date Expiration Date V isits Requested Visits Authorized [id number] Closed Auto-Generate d Referral 04/23/2022 10/09/2022 1 1 Reason Onset Date Comments Refill Request 05/24/2022 Reason Comments Cough Specialty Diagnoses / Procedures Referred By Contac t Referred To Contact Family Practice / FAMILY MEDICINE Diagnoses Cough Chest tightness Persistent cough with chest tightness Procedures PHYS/QHP TELEPHONE EVALUATION 5-10 MIN VIDEO PRIMARY EST Pcp, No Milton Camacho APRN.VIDEO GAME ENGINEER [address] [place] [address] Referral ID Status Reason Start Date Expiration Date Visits Re quested Visits Authorized [id number] Closed 06/07/2022 10/09/2022 1 1 Reason Comments Spirometry Specialty Diagnoses / Procedures Referred By Contac t Referred To Contact [facility] Diagnoses Chest tightness Persistent cough Post-COVID chronic cough Procedures SPIROMETRY - BASELINE AND POST DILATOR BRNCDILAT RSPSE SPMTRY PRE&POST-BRNCDILAT ADMN Milton Camacho APRN.VIDEO GAME ENGINEER [address] [place] [address] [facility] [place] [address] [place] [address] Referral ID Status Reason Start Date Expiration Date V isits Requested Visits Authorized [id number] Closed Auto-Generate d Referral 06/21/2022 10/09/2022 1 1 Reason Onset Date Comments Refill Request 06/30/2022 Reason Comments Right ear drainage Reason Comments Ear Pain R ear pain x6 days Specialty Diagnoses / Procedures Referred By Contac t Referred To Contact Emergency [facility] / [facility] Diagnoses Right ear pain Right ear pain Procedures OFFICE/OUTPATIENT ESTABLISHED MOD MDM 30-39 MIN EST SAME DAY Self Danica Reza PA [address] [place] [address] Referral ID Status Reason Start Date Expiration Date Visits Re quested Visits Authorized [id number] Closed 11/29/2022 10/09/2023 1 1 Reason Comments Results Reason Comments Patient Question Reason Comments Results Specialty Diagnoses / Procedures Referred By Contac t Referred To Contact [facility] Diagnoses Elevated LFTs Procedures US ABD RIGHT UPPER QUADRANT US ABDOMINAL REAL TIME W/IMAGE LIMITED Td Vick, [address] [place] [address] [place] [address] Referral ID Status Reason Start Date Expiration Date V isits Requested Visits Authorized [id number] Closed Auto-Generate d Referral 05/30/2023 10/09/2023 1 1 Reason Comments Elevated LFT's Fatty Liver, constip ation Specialty Diagnoses / Procedures Referred By Contact Referred To Contact Gastroenterology / GASTROENTEROLOGY Diagnoses Elevated LFTs Fatty liver Procedures CONSULT TO GASTROENTEROLOGY OFFICE/OUTPATIENT NEW HIGH MDM 60-74 MINUTES OFFICE/OUTPATIENT NEW MODERATE MDM 45-59 MINUTES Ny Leblanc APRN.VIDEO GAME ENGINEER [address] [place] [address] Selene Lindsey PA-C [address] [address] Referral ID Status Reason Start Date Expiration Date V isits Requested Visits Authorized [id number] Closed Benefit Check 08/18/2023 10/09/2023 1 1 Reason Comments Cough Congestion, body ach es & sore throat x 4 days; + COVID at home test 08/30 with onset same day Reason Comments Non Alcoholic Fatty Liver Disease Reason Comments Medication Request Would like to restar t adderall, has not been filled x years, did take left over adderall the last 4 days Reason Comments Yearly Exam Specialty Diagnoses / Procedures Referred By Contac t Referred To Contact Family Medicine / FAMILY MEDICINE Diagnoses Encounter for annual physical exam annual exam Procedures OFFICE/OUTPATIENT ESTABLISHED MOD MDM 30 MIN 4C EST WELL Self Td Vick, [address] [place] [address] Referral ID Status Reason Start Date Expiration Date Visits Re quested Visits Authorized [id number] Closed 04/30/2024 10/09/2024 1 1 Reason Comments Non Alcoholic Fatty Liver Disease Specialty Diagnoses / Procedures Referred By Contac t Referred To Contact Radiology / [facility] Diagnoses ML Procedures RADIOLOGIC EXAM CHEST 2 VIEWS XR CHEST Milton Camacho, IMELDA.VIDEO GAME ENGINEER [address] [place] [address] [facility] [address] [place] [address] Referral ID Status Reason Start Date Expiration Date Visits Re quested Visits Authorized [id number] Closed 06/07/2022 10/09/2022 1 1 Reason Comments Radiology US Specialty Diagnoses / Procedures Referred By Contac t Referred To Contact [facility] Diagnoses Multiple thyroid nodules Procedures US THYROID/PARATHYROID US SOFT TISSUE HEAD & NECK REAL TIME IMGE DOCM Td Vick DO [address] [place] [address] Phone: tel: fax: [place] [address] Referral ID Status Reason Start Date Expiration Date V isits Requested Visits Authorized [id number] Closed Auto-Generate d Referral 03/27/2025 04/26/2026 1 1 Reason Comments Consult Thyroid nodule Specialty Diagnoses / Procedures Referred By Contac t Referred To Contact General Surgery Diagnoses Right thyroid nodule Procedures CONSULT TO GENERAL SURGERY OFFICE/OUTPATIENT [facility] MDM 60 MINUTES Td Vick DO [address] [place] [address] Phone: tel: fax: Referral ID Status Reason Start Date Expiration Date V isits Requested Visits Authorized [id number] Closed PCP Requested Referral 04/03/2025 04/03/2026 1 1 Reason Comments Yearly Exam Reason Comments Liver Disease Reason Comments Medication Request Care Teams (unrecognized sec tion and content) Steel Detailer Relationship Specialty Start Date End Date Td Vick, DO [address] [place] [address] PCP - General Family Practice 05/11/16 Steel Detailer Relationship Specialty Start Date End Date Td Vick, DO [address] [place] [address] PCP - General Family Practice 05/11/16 Steel Detailer Relationship Specialty Start Date End Date Td Vick, DO [address] [place] [address] PCP - General Family Practice 05/11/16 Steel Detailer Relationship Specialty Start Date End Date Td Vick, DO [address] [place] [address] PCP - General Family Practice 05/11/16 Steel Detailer Relationship Specialty Start Date End Date Td Vick, DO [address] [place] [address] PCP - General Family Practice 05/11/16 Steel Detailer Relationship Specialty Start Date End Date Td Vick, DO [address] [place] [address] PCP - General Family Practice 05/11/16 Steel Detailer Relationship Specialty Start Date End Date Td Vick, DO [address] [place] [address] PCP - General Family Medicine 05/11/16 Steel Detailer Relationship Specialty Start Date End Date Td Vick, DO [address] [place] [address] PCP - General Family Medicine 05/11/16 Steel Detailer Relationship Specialty Start Date End Date Td Vick, DO [address] [place] [address] PCP - General Family Medicine 05/11/16 Steel Detailer Relationship Specialty Start Date End Date Td Vick, DO [address] [place] [address] PCP - General Family Medicine 05/11/16 Steel Detailer Relationship Specialty Start Date End Date Td Vick, DO [address] [facility] [address] PCP - General Family Medicine 05/11/16 Steel Detailer Relationship Specialty Start Date End Date Td Vick, DO [address] [facility] [place] [address] PCP - General Family Medicine 05/11/16 Steel Detailer Relationship Specialty Start Date End Date Td Vick, DO [address] [facility] [place] [address] PCP - General Family Medicine 05/11/16 Steel Detailer Relationship Specialty Start Date End Date Td Vick, DO [address] [facility] [place] [address] PCP - General Family Medicine 05/11/16 Steel Detailer Relationship Specialty Start Date End Date Td Vick, DO [address] [facility] [place] [address] PCP - General Family Medicine 05/11/16 Steel Detailer Relationship Specialty Start Date End Date Td Vick, DO [address] [facility] [place] [address] PCP - General Family Medicine 05/11/16 Steel Detailer Relationship Specialty Start Date End Date Td Vick, [address] [facility] [place] [address] PCP - General Family Medicine 05/11/16 Steel Detailer Relationship Specialty Start Date End Date Td Vick, [address] [place] [address] PCP - General Family Medicine 05/11/16 Steel Detailer Relationship Specialty Start Date End Date Td Vick DO [address] [place] [address] PCP - General Family Medicine 05/11/16 Steel Detailer Relationship Specialty Start Date End Date Td Vick DO [address] [place] [address] PCP - General Family Medicine 05/11/16 Steel Detailer Relationship Specialty Start Date End Date Td Vick DO [address] [place] [address] PCP - General Family Medicine 05/11/16 Steel Detailer Relationship Specialty Start Date End Date Td Vick, [address] [place] [address] PCP - General Family Medicine 05/11/16 Steel Detailer Relationship Specialty Start Date End Date Td Vick, [address] [place] [address] PCP - General Family Medicine 05/11/16 Steel Detailer Relationship Specialty Start Date End Date Td Vick DO [address] [place] [address] PCP - General Family Medicine 05/11/16 Steel Detailer Relationship Specialty Start Date End Date Td Vick, [address] [place] [address] PCP - General Family Medicine 05/11/16 Steel Detailer Relationship Specialty Start Date End Date Td Vick DO [address] [place] [address] PCP - General Family Medicine 05/11/16 Steel Detailer Relationship Specialty Start Date End Date Td Vick DO [address] [place] [address] PCP - General Family Medicine 05/11/16 Steel Detailer Relationship Specialty Start Date End Date Td Vick DO [address] [place] [address] PCP - General Family Medicine 05/11/16 Steel Detailer Relationship Specialty Start Date End Date Td Vick DO [address] [place] [address] PCP - General Family Medicine 05/11/16 Steel Detailer Relationship Specialty Start Date End Date Td Vick DO [address] [place] [address] PCP - General Family Medicine 05/11/16 Ny Leblanc, STUNNER ANIMAL.VIDEO GAME ENGINEER [address] [place] [address] Supervisor Asbestos Removal Family Medicine 09/16/24 12/28/24 Milton Camacho, STUNNER ANIMAL.VIDEO GAME ENGINEER [address] [place] [address] Supervisor Asbestos Removal Family Medicine 09/16/24 Steel Detailer Relationship Specialty Start Date End Date Td Vick DO [address] [place] [address] PCP - General Family Medicine 05/11/16 [facility] STUNNER ANIMAL.VIDEO GAME ENGINEER [address] [place] [address] Supervisor Asbestos Removal Family Medicine 09/16/24 Ryanne Frye, STUNNER ANIMAL.VIDEO GAME ENGINEER [address] [place] [address] Supervisor Asbestos Removal [facility] 03/25/25 Steel Detailer Relationship Specialty Start Date End Date Td Vick DO [address] [place] [address] PCP - General Family Medicine 05/11/16 [facility] STUNNER ANIMAL.VIDEO GAME ENGINEER [address] [place] [address] Supervisor Asbestos Removal Family Medicine 09/16/24 Ryanne Frye, STUNNER ANIMAL.VIDEO GAME ENGINEER [address] [place] [address] [facility] 03/25/25 Steel Detailer Relationship Specialty Start Date End Date Td Vick DO [address] [place] [address] PCP - General Family Medicine 05/11/16 [facility] STUNNER ANIMAL.VIDEO GAME ENGINEER [address] [place] [address] Supervisor Asbestos Removal Family Medicine 09/16/24 Ryanne Frye, STUNNER ANIMAL.VIDEO GAME ENGINEER [address] [place] [address] [facility] 03/25/25 Steel Detailer Relationship Specialty Start Date End Date Td Vick DO [address] [facility] [place] [address] PCP - General Family Medicine 05/11/16 KeriMilton, STUNNER ANIMAL.VIDEO GAME ENGINEER [address] [facility] [place] [address] Supervisor Asbestos Removal Family Medicine 09/16/24 MelvaRyanne, STUNNER ANIMAL.VIDEO GAME ENGINEER [address] [place] [address] [facility] 03/25/25 Steel Detailer Relationship Specialty Start Date End Date Td Vick DO [address] [place] [address] PCP - General Family Medicine 05/11/16 KeriMilton, STUNNER ANIMAL.VIDEO GAME ENGINEER [address] [place] [address] [facility] 09/16/24 Ryanne Frye, STUNNER ANIMAL.VIDEO GAME ENGINEER [address] [place] [address] [facility] 03/25/25 Steel Detailer Relationship Specialty Start Date End Date Td Vick DO [address] [facility] [place] [address] PCP - General Family Medicine 05/11/16 KeriMilton, STUNNER ANIMAL.VIDEO GAME ENGINEER [address] [facility] [place] [address] Supervisor Asbestos Removal Family Medicine 09/16/24 Ryanne Frye, STUNNER ANIMAL.VIDEO GAME ENGINEER [address] [place] [address] Supervisor Asbestos Removal Family [place] 03/25/25 Steel Detailer Relationship Specialty Start Date End Date Td Vick DO [address] [place] [address] PCP - General Family Medicine 05/11/16 Milton Camacho, STUNNER ANIMAL.VIDEO GAME ENGINEER [address] [place] [address] Supervisor Asbestos Removal Family Medicine 09/16/24 Ryanne Frye, STUNNER ANIMAL.VIDEO GAME ENGINEER [address] [place] [address] [facility] 03/25/25 Steel Detailer Relationship Specialty Start Date End Date Td Vick DO [address] [place] [address] PCP - General Family Medicine 05/11/16 Milton Camacho, STUNNER ANIMAL.VIDEO GAME ENGINEER [address] [place] [address] Supervisor Asbestos Removal Family Medicine 09/16/24 Ryanne Frye, STUNNER ANIMAL.VIDEO GAME ENGINEER [address] [place] [address] Supervisor Asbestos Removal Family [place] 03/25/25 Steel Detailer Relationship Specialty Start Date End Date Td Vick DO [address] [facility] [place] [address] PCP - General Family Medicine 05/11/16 Milton Camacho, STUNNER ANIMAL.VIDEO GAME ENGINEER [address] [place] [address] [facility] 09/16/24 Ryanne Frye, IMELDA.VIDEO GAME ENGINEER [address] [place], [place] [address] [facility] 03/25/25 Steel Detailer Relationship Specialty Start Date End Date Td Vick DO [address] [place], [place] [address] PCP - General Family Medicine 05/11/16 Milton Camacho APRN.VIDEO GAME ENGINEER [address] [place], [place] [address] [facility] 09/16/24 Ryanne Frye, STUNNER ANIMAL.VIDEO GAME ENGINEER [address] [place], [place] [id number] [facility] 03/25/25 INFORMATION SOURCE (unrecogn ized section and content) DATE CREATED AUTHOR 06/15/2025 [facility] DATE CREATED AUTHOR AUTHOR'S HILARIA MACK 06/16/2025 [facility] FOR RECORDS PERTAINING TO PATIENTS WHO ARE OR HAVE BEEN ENROLLED IN A CHEMICAL DEPENDENCY/SUBSTANCEABUSE PROGRAM, SOME INFORMATION MAY BE OMITTED. This clinical summary was aggregated from multiple sources. Caution should be exercised in using it in the provision of clinical care. This summary normalizes information from multiple sources, and as a consequence, information in this document may materially change the coding, format and clinical context of patient data. In addition, data may be omitted in some cases. CLINICAL DECISIONS SHOULD BE BASED ON THE PRIMARY CLINICAL RECORDS. [employer] provides no warranty or guarantee of the accuracy or completeness of information in this document.
--- NOTE | 2025-06-19 07:30 | CT_ITS ---
PROCEDURE: LIMITED CHEST CT CARDIAC ONLY 06/19/2025 REASON FOR EXAM: SCREENING CAD TECHNIQUE: Procedure Code: [id number] Modality: CT Procedure: LIMITED CHEST CT CARDIAC ONLY CT performed for coronary artery calcification scoring. One or more dose reduction techniques were used (e.g., Automated exposure control, adjustment of the mA and/or kV according to patient size, use of iterative reconstruction technique). RADIATION DOSE SUMMARY: CTDlvol: 12.19 mGy DLP: 219.42 mGycm COMPARISON: Chest x-ray 10/20/2024. CT/Limited Chest CT Cardiac Only IMPRESSION: Limited imaging of the lungs demonstrates no acute process. No pleural effusion or pneumothorax is seen in visualized areas. No adenopathy is noted. The visualized upper abdomen demonstrates no significant abnormality. Reading Location: [place] [address]
--- NOTE | 2025-06-27 07:54 | CA.SCORE ---
Calcium Scoring Date of Study:: 06/19/25 Indications Indications: Family history Coronary Calcium Scoring: High-resolution Computed Tomographic imaging of the chest was performed on [06/19/2025], with particular attention paid to the coronary arteries. Images from the examination were analyzed for the presence and extent of coronary artery calcification , using coronary calcium quantification software. The patient tolerated the procedure well and there were no complications. The results of the coronary calcification analysis are provided below. Findings Coronary Artery Left Main (LM): 0 Left Anterior Descending (LAD): 0 Left Circumflex (LCX): 0 Right Coronary Artery (RCA): 0 Total Agatston Score: 0 Percentile Rankinth percentile Calcium Scoring Interpretation: Different methods to categorize the overall amount of coronary plaque. Overall amount CAC SIS Visual of coronary plaque P1 Mild -100 <2 1-2 vessels with mild amount of plaque P2 Moderate 101-300 3-4 1-2 vessels with moderate amount, 3 vessels with mild amount of plaque P3 Severe 301-999 5-7 3 vessels with moderate amount, 1 vessel with severe amount of plaque P4 Extensive >1000 >8 2-3 vessels with severe amount of plaque Conclusion: No atherosclerotic plaquing noted
== END | disposition home or self-care (01) ==
PROVIDERS: PCP Student in an Organized Health Care Education/Training Program; Referring Provider Student in an Organized Health Care Education/Training Program; Visit Provider Student in an Organized Health Care Education/Training Program
DX: I45.10 Unspecified right bundle-branch block (principal); Z13.6 Encounter for screening for cardiovascular disorders
CPT/HCPCS: 75571; 76380

== ENCOUNTER → 2025-07-16 | Outpatient (CLI) | payer OTHER, SELFPAY ==
--- NOTE | 2025-07-16 07:53 | COLBX_PTH ---
PATIENT: BINA COLON [facility] U#:[id number] AGE/SX: 55/F ROOM: RE07/16/[address]: Dr. Sailaja Real MD : 1970 BED: DIS: 07/16/2025 SPEC #: [id number] RECD: 07/16/25 15:08 STATUS: ANTHONY REQ #: [id number] YECENIA: 07/16/25 07:[address]: Sailaja Real DEPT: SURGICAL PATHOLOGY RECD BY: Rodriguez Howell ENTERED: 07/16/25 15:27 SP TYPE: COLON BX OT DR: Dr. Td Vick DO Tissues: A - Ileum, NOS B - COLON BIOPSY C - Transverse colon D - COLON BIOPSY E - Sigmoid colon biopsy F - Rectum, NOS Procedures: Surgery Specimen Level IV HEADER OPERATION: Colonoscopy PRE-OP DIAGNOSIS: Elevated fecal calprotectin TISSUE SUBMITTED: A- Terminal ileum biopsy, B- Right colon - random, C- Transverse colon biopsy, D- Left colon biopsy, E- Sigmoid colon biopsy, F- Rectum biopsy MICROSCOPIC DIAGNOSIS A. Terminal ileum, biopsy: * No specific pathologic change. B. Right colon, random, biopsy: * No specific pathologic change. C. Transverse colon, biopsy: * Focal active colitis - see Comment. D. Left colon, biopsy: * Focal active colitis - see comment. 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 E. 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 F. 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 COMMENT: Focal mild acute inflammation is noted (C, D) without features of chronicity. This is a nonspecific finding which may result from bowel prep artifact, mild infection, medication injury (eg: NSAIDs) and ischemia. Recommend correlation with clinical and endoscopic findings. MICROSCOPIC DESCRIPTION Slides are reviewed. GROSS DESCRIPTION A. Received in fixative is one container labeled with the patient's name and designated Terminal ileum biopsy. The specimen consists of multiple irregular fragments of chavez tissue that in aggregate measure 0.6 x 0.4 x 0.1 cm. The specimen is totally submitted in one cassette. B. Received in fixative is one container labeled with the patient's name and designated Right colon. The specimen consists of three irregular fragments of chavez tissue that measure 0.3 to 0.7 cm. The specimen is totally submitted in one cassette. C. Received in fixative is one container labeled with the patient's name and designated Transverse colon. The specimen consists of multiple irregular fragments of chavez tissue that in aggregate measure 0.5 x 0.3 x 0.1 cm. The specimen is totally submitted in one cassette. D. Received in fixative is one container labeled with the patient's name and designated Left colon. The specimen consists of two irregular fragments of chavez tissue, each measuring 0.3 cm. The specimen is totally submitted in one cassette. E. Received in fixative is one container labeled with the patient's name and designated Sigmoid colon. The specimen consists of three irregular fragments of chavez tissue that measure 0.1 to 0.3 cm, admixed with flocculent material. Smallest fragment may not survive processing. The specimen is totally submitted in one cassette. F. Received in fixative is one container labeled with the patient's name and designated Rectum biopsy. The specimen consists of three irregular fragments of chavez tissue that measure 0.2 to 0.6 cm. The specimen is totally submitted in one cassette. GIANNA 07/16/2025 CPT:12551z3
--- NOTE | 2025-07-16 07:53 | COLBX_PTH ---
PATIENT: BINA COLON [facility] U#:[id number] AGE/SX: 55/F ROOM: RE07/16/[address]: Dr. Sailaja Real MD : 1970 BED: DIS: 07/16/2025 SPEC #: [id number] RECD: 07/16/25 15:08 STATUS: ANTHONY REQ #: [id number] YECENIA: 07/16/25 07:[address]: Sailaja Real DEPT: SURGICAL PATHOLOGY RECD BY: Rodriguez Howell ENTERED: 07/16/25 15:27 SP TYPE: COLON BX OT DR: Dr. Td Vick DO Tissues: A - Ileum, NOS B - COLON BIOPSY C - Transverse colon D - COLON BIOPSY E - Sigmoid colon biopsy F - Rectum, NOS Procedures: Surgery Specimen Level IV HEADER OPERATION: Colonoscopy PRE-OP DIAGNOSIS: Elevated fecal calprotectin TISSUE SUBMITTED: A- Terminal ileum biopsy, B- Right colon - random, C- Transverse colon biopsy, D- Left colon biopsy, E- Sigmoid colon biopsy, F- Rectum biopsy MICROSCOPIC DIAGNOSIS A. Terminal ileum, biopsy: * No specific pathologic change. B. Right colon, random, biopsy: * No specific pathologic change. C. Transverse colon, biopsy: * Focal active colitis - see Comment. D. Left colon, biopsy: * Focal active colitis - see comment. 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 E. 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 F. 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 COMMENT: Focal mild acute inflammation is noted (C, D) without features of chronicity. This is a nonspecific finding which may result from bowel prep artifact, mild infection, medication injury (eg: NSAIDs) and ischemia. Recommend correlation with clinical and endoscopic findings. MICROSCOPIC DESCRIPTION Slides are reviewed. GROSS DESCRIPTION A. Received in fixative is one container labeled with the patient's name and designated Terminal ileum biopsy. The specimen consists of multiple irregular fragments of chavez tissue that in aggregate measure 0.6 x 0.4 x 0.1 cm. The specimen is totally submitted in one cassette. B. Received in fixative is one container labeled with the patient's name and designated Right colon. The specimen consists of three irregular fragments of chavez tissue that measure 0.3 to 0.7 cm. The specimen is totally submitted in one cassette. C. Received in fixative is one container labeled with the patient's name and designated Transverse colon. The specimen consists of multiple irregular fragments of chavez tissue that in aggregate measure 0.5 x 0.3 x 0.1 cm. The specimen is totally submitted in one cassette. D. Received in fixative is one container labeled with the patient's name and designated Left colon. The specimen consists of two irregular fragments of chavez tissue, each measuring 0.3 cm. The specimen is totally submitted in one cassette. E. Received in fixative is one container labeled with the patient's name and designated Sigmoid colon. The specimen consists of three irregular fragments of chavez tissue that measure 0.1 to 0.3 cm, admixed with flocculent material. Smallest fragment may not survive processing. The specimen is totally submitted in one cassette. F. Received in fixative is one container labeled with the patient's name and designated Rectum biopsy. The specimen consists of three irregular fragments of chavez tissue that measure 0.2 to 0.6 cm. The specimen is totally submitted in one cassette. GIANNA 07/16/2025 CPT:23323y4
== END | disposition home or self-care (01) ==
LOC: LABSPEC 15:21
PROVIDERS: PCP Student in an Organized Health Care Education/Training Program; Referring Provider Surgery; Visit Provider Surgery
DX: I50.21 Acute systolic (congestive) heart failure (principal)
CPT/HCPCS: 88305